=== PATIENT | female | born 1960 | race Caucasian/White ===

== ENCOUNTER 2020-03-06 09:56 | Outpatient (CLI) | payer BC, SELFPAY ==
--- NOTE | ~2020-03-06 | US_ITS ---
EXAMINATION: US pelvic complete w TV DATE: 03/06/2020 10:39 INDICATION: Postmenopausal bleeding. TECHNIQUE: Multiple transabdominal and transvaginal sonographic images of the pelvis were obtained. COMPARISON: Ultrasound 03/21/2017 FINDINGS: TRANSABDOMINAL ULTRASOUND: The uterus measures 7.4 x 4.0 x 2.8 cm. There is no free fluid in the pelvis. TRANSVAGINAL ULTRASOUND: The endometrial complex measures 5 mm in thickness. There is a 4 mm intramural fibroid. The ovaries a re not visualized. IMPRESSION: 1. Normal pelvis. Reviewed, dictated and finalized at location A. IMPRESSION: 1. Normal pelvis.
== END 2020-03-06 09:57 | disposition home or self-care (01) ==
PROVIDERS: PCP Family Medicine; Visit Provider Physician Assistant
DX: N95.0 Postmenopausal bleeding (principal)
CPT/HCPCS: 76830; 76856

== ENCOUNTER → 2020-08-22 12:33 | Outpatient (CLI) | payer BC, SELFPAY ==
--- NOTE | ~2020-08-22 | MM_ITS ---
EXAMINATION: MM screening [facility] BI w sudheer HISTORY: Screening mammogram TECHNIQUE: Craniocaudal and mediolateral oblique 3-D tomosynthesis images were obtained and synthetic 2-D images were generated. CAD analysis was submitted and interpreted. COMPARISON: 08/10/2019, 08/08/2018, 08/06/2017 bilateral digital screening mammogram examinations 08/17/2018 diagnostic right digital mammogram and limited right breast ultrasound examination BREAST PARENCHYMAL COMPOSITION: There are scattered areas of fibroglandular density. FINDINGS: There is stable fibroglandular asymmetry. There is no evidence of suspicious mass, calcific ation, or architectural distortion to suggest malignancy in either breast. There has been no suspicio us interval change. IMPRESSION: 1. No mammographic evidence of malignancy. 2. Recommend routine screening mammography in one year. BI-RADS Category 2: Benign finding(s). Reviewed, dictated and finalized at location A. L FITTER
== END ==
PROVIDERS: PCP Family Medicine; Visit Provider Physician Assistant
DX: Z12.31 Encounter for screening mammogram for malignant neoplasm of breast (principal)
CPT/HCPCS: 77063; 77067

== ENCOUNTER → 2021-08-24 12:09 | Outpatient (CLI) | payer BC, SELFPAY ==
--- NOTE | ~2021-08-24 | MM_ITS ---
EXAMINATION: MM screening [facility] BI w sudheer HISTORY: Screening TECHNIQUE: Craniocaudal and mediolateral oblique 3-D tomosynthesis images were obtained and synthetic 2-D images were generated. CAD analysis was submitted and interpreted. COMPARISON: Comparison to multiple prior studies sequentially, with oldest reviewed study dated 06/21. BREAST PARENCHYMAL COMPOSITION: Breast composed of scattered areas of fibroglandular density. FINDINGS: There is no evidence of suspicious mass, calcification, or architectural distortion to sugg est malignancy in either breast. There has been no suspicious interval change. IMPRESSION: 1. No mammographic evidence of malignancy. 2. Recommend routine screening mammography in one year. BI-RADS Category 1: Negative Reviewed, dictated and finalized at location A. UTER SPECIALIST
== END ==
PROVIDERS: PCP Family Medicine; Visit Provider Family Medicine
DX: Z12.31 Encounter for screening mammogram for malignant neoplasm of breast (principal)
CPT/HCPCS: 77063; 77067

== ENCOUNTER → 2021-10-23 14:38 | Outpatient (CLI) | payer BC, SELFPAY ==
--- NOTE | ~2021-10-23 | XR_ITS ---
XR chest 2V DATE: 10/23/2021 14:46 INDICATION: Cough TECHNIQUE: PA and lateral views COMPARISON: None FINDINGS: Normal heart size. No hilar or mediastinal enlargement. Moderate bilateral pulmonary hyper inflation. No hilar or mediastinal enlargement. No pulmonary infiltrate or consolidation, pulmonary vascular congestion or pleural effusion or pneumothorax. 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 There is scoliosis and degenerative change of the thoracic and lumbar spine. IMPRESSION: No active cardiopulmonary disease Scoliosis and degenerative spurring of thoracic and lumbar spine Reviewed, dictated and finalized at location B. ARCH/PROGRAM DIRECTOR
== END ==
PROVIDERS: PCP Family Medicine; Visit Provider Physician Assistant
DX: R05.9 Cough, unspecified (principal); M47.812 Spondylosis without myelopathy or radiculopathy, cervical region; M41.9 Scoliosis, unspecified
CPT/HCPCS: 71046

== ENCOUNTER → 2022-09-02 15:04 | Outpatient (CLI) | payer BC, SELFPAY ==
--- NOTE | ~2022-09-02 | MM_ITS ---
EXAMINATION: MM screening [facility] BI w sudheer HISTORY: Screening TECHNIQUE: Craniocaudal and mediolateral oblique 3-D tomosynthesis images were obtained and synthetic 2-D images were generated. CAD analysis was submitted and interpreted. COMPARISON: Comparison to multiple prior studies sequentially, with oldest reviewed study dated 08/06/2017. BREAST PARENCHYMAL COMPOSITION: There are scattered areas of fibroglandular density. FINDINGS: There is no evidence of suspicious mass, calcification, or architectural distortion to sugg est malignancy in either breast. There has been no suspicious interval change. IMPRESSION: 1. No mammographic evidence of malignancy. 2. Recommend routine screening mammography in one year. BI-RADS Category 1: Negative Reviewed, dictated and finalized at location B. CAL COMMUNICATION SPECIALIST
== END ==
PROVIDERS: PCP Internal Medicine; Visit Provider Obstetrics & Gynecology
DX: Z12.31 Encounter for screening mammogram for malignant neoplasm of breast (principal)
CPT/HCPCS: 77063; 77067

== ENCOUNTER → 2023-08-17 07:38 | Outpatient (CLI) | payer BC, SELFPAY ==
--- NOTE | ~2023-08-17 | MMUS_ITS ---
EXAMINATION: MM diagnostic [facility] BI w sudheer, US breast BI complete HISTORY: Patient reported feeling the long skinny palpable area at 9:00 near the nipple on July 20 , since resolved TECHNIQUE: Full field and spot ML, MLO and CC 3-D tomosynthesis images of both breasts were performed and synthetic 2-D images were generated. CAD analysis was submitted and interpreted. High resolution complete bilateral breast ultrasound examination including all 4 quadrants and subareolar areas was performed. COMPARISON: 09/02/2022, 08/24/2021, 08/2020, 08/10/2019 bilateral screening mammogram examinations BREAST PARENCHYMAL COMPOSITION: There are scattered areas of fibroglandular density. FINDINGS: MAMMOGRAPHIC FINDINGS: No interval suspicious mass or architectural distortion, malignant calcification, skin thickening or retraction or significant new or developing density of either breast is detected. ULTRASOUND: . Complete ultrasound examination of both breasts was performed including all 4 quadrants and subareo lar area. Subsequently, the right 9:00 area near the areola was rescanned. Right breast: There is an antiparallel irregular hypoechoic area at 9:00 near the areola, with some posterior shado wing. Ultrasound-guided biopsy of this area is recommended. Left breast: At left breast 4:00 1 cm from the nipple there is a parallel circumscribed hypoechoic 3.6 x 1.8 x 5.2 mm area without internal vascularity or posterior shadowing, benign in appearance. IMPRESSION: 1. Suspicious antiparallel irregular hypoechoic shadowing approximately 6 mm lesion at 9:00 near the areola, corresponding to the patient's area of clinical complaint 2. Ultrasound-guided biopsy of right 9:00 lesion near the areola is recommended BI-RADS category 4, suspicious findings. . Dr. Guillen telephoned the report and ultrasound-guided biopsy recommendation of right breast 9:00 les ion near the areola on 08/17/[address] Isai Allne. Reviewed, dictated and finalized at location A. MATIC WASHER MECHANIC IMPRESSION: 1. Suspicious antiparallel irregular hypoechoic shadowing approximately 6 mm le alejandro at 9:00 near the areola, corresponding to the patient's area of clinical c omplaint 2. Ultrasound-guided biopsy of right 9:00 lesion near the areola is recommended BI-RADS category 4, suspicious findings. . Dr. Guillen telephoned the report and ultrasound-guided biopsy recommendation of right breast 9:00 lesion near the areola on 08/17/2023 [place] [address] Guevara.
== END ==
PROVIDERS: PCP Internal Medicine; Visit Provider Obstetrics & Gynecology
DX: R92.8 Other abnormal and inconclusive findings on diagnostic imaging of breast (principal)
CPT/HCPCS: 76641; 77062; 77066; G0279

== ENCOUNTER 2023-09-01 08:51 | Outpatient (CLI) | payer BC, SELFPAY ==
--- NOTE | ~2023-09-01 | US_ITS ---
US breast RT limited 09/01/2023 09:50 Indication: Focal area of abnormal decreased echogenicity noted in the right breast on prior ultrasou nd. Biopsy requested. Procedure: High-resolution Limited ultrasound of the right breast Comparison: 08/17/2023 Findings: The hypoechoic shadowing area in the 9:00 position near the nipple represents area of shado wing from the overlying nipple. No discrete mass or cyst is identified. Short-term follow-up ultrasou nd in 6 months recommended. Impression: 1: Probable benign shadowing of the right breast near the nipple. No discrete mass. BI-RADS CATEGORY 3-PROBABLY BENIGN FINDING RECOMMENDATION: 6 month follow-up Limited right breast ultrasound recommended. Reviewed, dictated and finalized at location A. PHARMACY TECHNICIAN Impression: 1: Probable benign shadowing of the right breast near the nipple. No discrete m ass. BI-RADS CATEGORY 3-PROBABLY BENIGN FINDING RECOMMENDATION: 6 month follow-up Limited right breast ultrasound recommended.
== END 2023-09-01 08:52 | disposition home or self-care (01) ==
PROVIDERS: PCP Internal Medicine; Visit Provider Surgery
DX: R92.8 Other abnormal and inconclusive findings on diagnostic imaging of breast (principal)
CPT/HCPCS: 76642

== ENCOUNTER 2024-03-02 08:41 | Outpatient (CLI) | payer BC, SELFPAY ==
--- NOTE | ~2024-03-02 | MMUS_ITS ---
EXAMINATION: MM diagnostic r[facility] RT w sudheer, US breast RT limited HISTORY: Follow-up right breast asymmetry TECHNIQUE: Additional 3-D tomosynthesis images of the right breast were performed and synthetic 2-D i mages were generated. CAD analysis was submitted and interpreted. High resolution Limited right breas t ultrasound was performed. COMPARISON: Comparison to multiple prior studies sequentially, with oldest reviewed study dated 07/21. BREAST PARENCHYMAL COMPOSITION: Not dense: There are scattered areas of fibroglandular density. FINDINGS: MAMMOGRAPHIC FINDINGS: The right breast is stable. No suspicious masses, calcifications or architectural distortion in the r ight breast to suggest malignancy. ULTRASOUND: Limited right breast ultrasound: There is an irregular hyperechoic area at 9:00 near the areola, like ly normal fibroglandular tissue. This appears unchanged from 09/01/2023. No discrete mass identified. IMPRESSION: 1. No evidence for malignancy in the right breast. Stable right mammogram and ultrasound. 2. Routine yearly screening mammogram and regular clinical breast examination are recommended. BI-RADS Category 2: Benign finding(s). Reviewed, dictated and finalized at location B. IMPRESSION: 1. No evidence for malignancy in the right breast. Stable right mammogram and u ltrasound. 2. Routine yearly screening mammogram and regular clinical breast examination a re recommended. BI-RADS Category 2: Benign finding(s).
== END 2024-03-02 08:42 | disposition home or self-care (01) ==
PROVIDERS: PCP Internal Medicine; Visit Provider Surgery
DX: R92.8 Other abnormal and inconclusive findings on diagnostic imaging of breast (principal)
CPT/HCPCS: 76642; 77061; 77065; G0279

== ENCOUNTER 2024-09-13 08:35 | Outpatient (CLI) | payer BC, SELFPAY ==
--- NOTE | ~2024-09-13 | MM_ITS ---
EXAMINATION: MM screening [facility] BI w sudheer HISTORY: Screening TECHNIQUE: Craniocaudal and mediolateral oblique 3-D tomosynthesis images were obtained and synthetic 2-D images were generated. CAD analysis was submitted and interpreted. COMPARISON: 08/17/2023 and dating back to 08/10/2019 BREAST PARENCHYMAL COMPOSITION: There are scattered areas of fibroglandular density. FINDINGS: Punctate calcifications within the retroareolar position of the left breast, stable and vale ign in appearance. Stable parenchymal pattern without suspicious microcalcifications, architectural distortion, discrete masses or significant asymmetry. IMPRESSION: 1. No mammographic evidence of malignancy. 2. Recommend routine screening mammography in one year. BI-RADS Category 2: Benign finding(s). Reviewed, dictated and finalized at location A. NOLOGY ANALYST
--- OUTSIDE RECORDS SUMMARY | 2024-09-20 18:44 | XMS_ITS | Encounter Summary ---
Author Organization [facility] Address [address] [place] [address] Care Team Providers Care Paver Installer Name Role Phone Estefany Lei MD Primary Care Provider Reason for Visit * Auth/Cert (Routine) Specialty Diagnoses / Procedures Referred By Contac t Referred To Contact Diagnoses Encounter for screening colonoscopy Encounter for screening colonoscopy [Z12.11] Procedures LA COLONOSCOPY,DIAGNOSTIC COLONOSCOPY Referral ID Status Reason Start Date Expiration Date Visits Re quested Visits Authorized [id number] 1 1 Encounter Details Date Type Department Care Team (Latest Contact Info) Description 08/27/2024 7:19 AM HOSPITALITY TEAM MEMBER - 08/27/2024 10:00 AM HOSPITALITY TEAM MEMBER Hospital Encounter [facility] [address] [place] [address] Kilo Johnson MD [facility] [address] [phone] Encounter for screening colonoscopy Discharge Disposition: Discharge to home or self care Social History Tobacco Use Types Packs/Day Years Used Date Smoking Tobacco: Former Cigarettes Smokeless Tobacco: Never AUDIT-C Answer Date Recorded Q1: How often do you have a drink containing alc ohol? Monthly or less 08/27/2024 Q2: How many drinks containi ng alcohol do you have on a typical day when you are drinking? 1 or 2 08/27/2024 Q3: How often do you have si x or more drinks on one occasion? Never 08/27/2024 PHQ-2 Answer Date Recorded PHQ-2 Total Score (If total score is 3 or more points, staff should administer the PHQ-9) 0 04/17/2024 Personal Safety Answer Date Recorded Have you ever been in or are you currently in a harmful physical or emotional relationship or is someone making you feel afraid or unsafe? Denies 08/27/2024 Comments Unknown Sex and Gender Information Value Date Recorded Sex Assigned at Not on file Legal Sex Female 12:44 AM HOSPITALITY TEAM MEMBER Gender Identity Not on file Sexual Orientation Not on file documented as of this encounter Last Filed Vital Signs Vital Sign Reading Time Taken Comments Blood Pressure 125/86 08/27/2024 9:18 AM HOSPITALITY TEAM MEMBER Pulse 68 08/27/2024 9:18 AM HOSPITALITY TEAM MEMBER Temperature 36.4 ??C (97.6 ??F) 08/27/2024 8:55 AM CS T Respiratory Rate 14 08/27/2024 9:18 AM HOSPITALITY TEAM MEMBER Oxygen Saturation 99% 08/27/2024 9:18 AM HOSPITALITY TEAM MEMBER Inhaled Oxygen Concentration - - Weight 52.2 kg (115 lb) 08/27/2024 7:29 AM HOSPITALITY TEAM MEMBER Height - - Body Mass Index 21.03 04/17/2024 8:24 AM CDT documented in this encounter Medications at Time of Discharge alendronate (FOSAMAX) 70 mg/75 mL solution Take by mouth every 7 days Take in the morning with a full glass of water, on an empty stomach, and do not take anything else by mouth or lie down for the next 30 min. efinaconazole 10 % solution with applicator Apply 1 application topically daily 8 mL 3 04/07/2022 magnesium oxide 400 mg magnesium capsule Take 800 mg by mouth daily naproxen (ALEVE) 220 mg tablet Take by mouth 2 (two) times a day with meals spironolactone (ALDACTONE) 100 mg tablet Take 1 tablet (100 mg total) by mouth daily documented as of this encounter Discharge Disposition Disposition Code Departure Means Destination Comment s Discharge to home or self care Private Vehicle Discharge instructions given and verbalized understanding. documented in this encounter H&P Notes * Kilo Johnson MD - 08/27/2024 7:36 AM CST Gastroenterology History and Physical SUBJECTIVE: Patient is a 64 y.o. female for Colonoscopy INDICATIONS: screening for colon cancer Past Medical History: Diagnosis Date Heart disease Hemorrhoids Urinary tract infection Medications Prior to Admission Medication Sig Dispense Refill Last Dose/Taking alendronate (FOSAMAX) 70 mg/75 mL solution Take by mouth every 7 days Take in the morning with a full glass of water, on an empty stomach, and do not take anything else by mouth or lie down for the next 30 min. Past Week spironolactone (ALDACTONE) 100 mg tablet Take 1 tablet (100 mg total) by mouth daily 08/26/2024 efinaconazole 10 % solution with applicator Apply 1 application topically daily 8 mL 3 Unknown magnesium oxide 400 mg magnesium capsule Take 800 mg by mouth daily Unknown naproxen (ALEVE) 220 mg tablet Take by mouth 2 (two) times a day with meals Unknown Allergies Allergen Reactions Penicillins Terbinafine Other (See comments) Itching and abdominal pain Review of Systems: Respiratory: negative Cardiovascular: negative Gastrointestinal: negative OBJECTIVE: Vitals: 08/27/24 0729 BP: 120/77 Pulse: 78 Resp: 18 Temp: 36.4 ??C (97.6 ??F) SpO2: 98% General Appearance: Well-developed, no distress Lungs: Clear to auscultation bilaterally, respirations unlabored Cardiovascular: Regular rate and rhythm, S1 and S2 normal Abdomen: Soft, non-tender, bowel sounds active all four quadrants, no masses, no organomegaly, non-distended Neurologic: Alert & oriented x 3 PLAN: Colonoscopy The risks (risks of bleeding, infection, perforation requiring surgery, missed polyps/cancer, dental injury, aspiration pneumonia, anesthesia complications such as drug reaction and cardiopulmonary complications including rare chance of ), benefits, and alternatives of the planned procedure were explained to the patient who understands and consents to having procedure done. ITALITY TEAM MEMBER documented in this encounter Procedure Notes * Kilo Johnson MD - 08/27/2024 8:30 AM CSTAssociated Order(s): COLONOSCOPY [facility] GI ENDOSCOPY Patient Name: Shila Martinez Procedure Date: 08/27/2024 8:30 AM Date of : 1960 Admit Type: Outpatient Age: 64 Gender: Female Attending MD: Kilo Johnson M.D. Room: [facility] ENDOSCOPY ROOM 06 Note Status: Finalized Procedure: Colonoscopy Indications: Screening for colorectal malignant neoplasm Referring MD: Providers: Kilo Johnson M.D. Medicines: Monitored Anesthesia Care Complications: No immediate complications. Estimated Blood Loss: Estimated blood loss: none. Procedure: Pre-Anesthesia Assessment: - Prior to the procedure, a History and Physical was performed, and patient medications and allergies were reviewed. The risks and benefits of the procedure and the sedation options and risks were discussed with the patient. All questions were answered and informed consent was obtained. Patient identification and proposed procedure were verified. After reviewing the risks and benefits, the patient was deemed in satisfactory condition to undergo the procedure. The anesthesia plan was to use monitored anesthesia care (MAC). Immediately prior to administration of medications, the patient was re-assessed for adequacy to receive sedatives. The heart rate, respiratory rate, oxygen saturations, blood pressure, adequacy of pulmonary ventilation, and response to care were monitored throughout the procedure. The physical status of the patient was re-assessed after the procedure. The benefits, risks and alternatives of the procedure and sedation were discussed and informed consent was obtained. All questions were answered. Please refer to the signed informed consent document in the medical record. The scope was passed under direct vision. The Colonoscope was introduced through the anus and advanced to the cecum, identified by appendiceal orifice and ileocecal valve. The colonoscopy was performed without difficulty. The patient tolerated the procedure well. The quality of the bowel preparation was adequate. Scope withdrawal time was 13 minutes. Prep was administered in a split dose. Findings: The perianal and digital rectal examinations were normal. A polyp was found in the ascending colon. The polyp was sessile. The polyp was removed with a cold biopsy forceps. Resection and retrieval were complete. A few small-mouthed diverticula were found in the sigmoid colon. Non-bleeding internal hemorrhoids were found during retroflexion. The hemorrhoids were small. The exam was otherwise without abnormality. Impression: - One polyp in the ascending colon, removed with a cold biopsy forceps. Resected and retrieved. - Diverticulosis in the sigmoid colon. - Non-bleeding internal hemorrhoids. - The examination was otherwise normal. Recommendation: - Patient has a contact number available for emergencies. The signs and symptoms of potential delayed complications were discussed with the patient. Return to normal activities tomorrow. Written discharge instructions were provided to the patient. - High fiber diet. - Continue present medications. - Await pathology results. - Repeat colonoscopy in 5 years for surveillance. Kilo Johnson M.D. Kilo Johnson M.D. 08/27/2024 8:53:45 AM . Number of Addenda: 0 Note Initiated On: 08/27/2024 8:30 AM Recognized by the [employer] for promoting quality in endoscopy ITALITY TEAM MEMBER documented in this encounter Miscellaneous Notes * Pre-Procedure Instructions - Tamela Kirk RN - 08/20/2024 9:25 AM HOSPITALITY TEAM MEMBER No alcohol or smoking 12 hours before surgery [place] teeth but do not swallow Shower or bathe, do no apply powders or lotions Leave all jewelry and valuables at home Expect to remove wigs, dentures, partials, contact lenses, body piercings and prosthesis Bring your glasses and hearing aide/s Make plans for responcible adult ot drive you home or accompany you home Bring living will and/or power of endless track vehicle supervisor paperwork if you have one Follow GI physician instructions regarding blood thinner and vitamins Bring inhalers Take prep according to GI physician Please take the following medications with a sip of water the AM of procedure: hold Spirolactone ITALITY TEAM MEMBER documented in this encounter Plan of Treatment Not on file documented as of this encounter Procedures Procedure Name Priority Date/Time Associated Diagnosis Comments SURGICAL PATHOLOGY Routine 08/27/2024 8: 40 AM HOSPITALITY TEAM MEMBER Encounter for screening colonoscopy COLONOSCOPY 08/27/2024 8:30 AM HOSPITALITY TEAM MEMBER COLON BIOPSY 08/27/2024 8:30 AM HOSPITALITY TEAM MEMBER Encounter for screening colonoscopy POC BLOOD GAS AND CHEMISTRIES, VENOUS Routine 08/27/2024 8:02 AM HOSPITALITY TEAM MEMBER documented in this encounter Results * Surgical pathology (08/27/2024 8:40 AM HOSPITALITY TEAM MEMBER) Tissue (Colon, Biopsy) 08/27/2024 8:40 AM HOSPITALITY TEAM MEMBER Narrative PATHOLOGY [facility] - 08/29/2024 5:18 PM HOSPITALITY TEAM MEMBER [facility] Department of Pathology [facility] [place], [place] [address] ?? Note to Patients: ??This report may contain a detailed description of human tissue sent by a health care provider to the laboratory for pathologic evaluation. ??The content of this report is essential for diagnosis and may provide important critical findings. ??This information may be unfamiliar to patients to review without a medical professional present. ?? It is advised that the patient review this report in the presence of a health care provider who can answer questions and explain the details. Final Report Patient Name: SHILA MARTINEZ : ??1960 (Age: 64) Gender: ??F Address: ??[address] [place] [address] [address] [facility] #: [id number] Service: Gastro [facility]: [facility] ? Taken: 08/27/2024 Received: 08/27/2024 Accessioned: 08/27/2024 Reported: 08/29/2024 Physician(s): Noah Alvarez M.D. Diagnosis: Colon, ascending, polyp, polypectomy: ? -Polypoid colonic mucosa with lymphoid aggregate and reactive epithelial changes. Diagnosis Comment: Multiple additional deeper tissue sections were examined. Alex Kidd MD, PHD Report Electronically Reviewed and Signed Out By ??Alex Kidd MD, PHD 08/29/2024 17:18:31 Specimen(s) Received: A: Ascending colon polyp cold biopsy Microscopic Description: Unless gross-only is specified, the final diagnosis for each specimen is based on a microscopic examination of each tissue sample. Clinical History: The patient is a 64-year-old woman presenting for colon cancer screening. ??Operative procedure: ??Colonoscopy with biopsy. Gross Description Received in formalin, labeled with the patient? ? s identifiers and ascending colon polyp cold biopsy and consists of two short tissue fragments measuring 0.3 cm each. ??Entirely submitted. ?? Labeled A1. Jar 0. ?? jjb/08/27/2024 10:47 PELON Barber, RANJIT [facility] Microscopic slide review and interpretation for this case was performed at [facility], Department of Surgical Pathology, [address] [facility] [place], [place] [id number], ??[facility], [place] ??[address] ?? CLIA # [id number] us Kilo Johnson MD LAB PATHOLOGY ORDERABLES Final R esult PATHOLOGY [facility] * Colonoscopy (08/27/2024 8:30 AM HOSPITALITY TEAM MEMBER) Anatomical Region Laterality Modality Other Narrative Procedure Note Kilo Johnson MD - 08/27/2024 8:30 AM CST [facility] GI ENDOSCOPY Patient Name: Shila Martinez Procedure Date: 08/27/2024 8:30 AM Date of : 1960 Admit Type: Outpatient Age: 64 Gender: Female Attending MD: Kilo Johnosn M.D. Room: [facility] ENDOSCOPY ROOM 06 Note Status: Finalized Procedure: Colonoscopy Indications: Screening for colorectal malignant neoplasm Referring MD: Providers: Kilo Johnson M.D. Medicines: Monitored Anesthesia Care Complications: No immediate complications. Estimated Blood Loss: Estimated blood loss: none. Procedure: Pre-Anesthesia Assessment: - Prior to the procedure, a History and Physicalwas performed, and patient medications and allergieswere reviewed. The risks and benefits of the procedureand the sedation options and risks were discussed withthe patient. All questions were answered and informed consent was obtained. Patient identification and proposed procedure were verified. After reviewingthe risks and benefits, the patient was deemed in satisfactory condition to undergo the procedure.The anesthesia plan was to use monitored anesthesiacare (MAC). Immediately prior to administration of medications, the patient was re-assessed foradequacy to receive sedatives. The heart rate, respiratory rate, oxygen saturations, blood pressure, adequacyof pulmonary ventilation, and response to care were monitored throughout the procedure. The physical status of the patient was re-assessed after the procedure. The benefits, risks and alternatives of theprocedure and sedation were discussed and informed consentwas obtained. All questions were answered. Please referto the signed informed consent document in the medical record. The scope was passed under direct vision.The Colonoscope was introduced through the anus and advanced to the cecum, identified by appendiceal orifice and ileocecal valve. The colonoscopy was performed without difficulty. The patient tolerated the procedure well. The quality of the bowel preparation was adequate. Scope withdrawal time was13 minutes. Prep was administered in a split dose. Findings: The perianal and digital rectal examinations were normal. A polyp was found in the ascending colon. The polyp was sessile. The polyp was removed with a cold biopsy forceps. Resection and retrieval were complete. A few small-mouthed diverticula were found in the sigmoid colon. Non-bleeding internal hemorrhoids were found during retroflexion. The hemorrhoids were small. The exam was otherwise without abnormality. Impression: - One polyp in the ascending colon, removed with a cold biopsy forceps. Resected and retrieved. - Diverticulosis in the sigmoid colon. - Non-bleeding internal hemorrhoids. - The examination was otherwise normal. Recommendation: - Patient has a contact number available for emergencies. The signs and symptoms of potential delayed complications were discussed with thepatient. Return to normal activities tomorrow. Written discharge instructions were provided to thepatient. - High fiber diet. - Continue present medications. - Await pathology results. - Repeat colonoscopy in 5 years for surveillance. Kilo Johnson M.D. Kilo Johnson M.D. 08/27/2024 8:53:45 AM . Number of Addenda: 0 Note Initiated On: 08/27/2024 8:30 AM Recognized by the [employer] for promoting quality in endoscopy us Kilo Johnson MD ENDOSCOPY PROCEDURES Final Resul t * (ABNORMAL) POC Blood Gas and Chemistries, Venous - (08/27/2024 8:02 AM HOSPITALITY TEAM MEMBER) pH,nate POC 7.32 7.32 - 7.43 pCO2, nate POC 48 40 - 50 mmHg [facility] pO2,nate POC 25 mmHg [facility] Comment: Interpretive Data No reference range established. Current interpretive data was last revised 2020. HCO3, nate (Calc) POC 24 20 - 30 mmol/L [facility] Base excess, nate POC -2 mmol/L [facility] Comment: Interpretive Data No reference range established. Current interpretive data was last revised 2020. Hemoglobin, nate POC 16.7(H) 11.9 - 15.5 g/dL [facility] Hematocrit, nate POC 49.0(H) 35.6 - 45.5 % [facility] Sodium, nate POC 140 135 - 145 mmol/L [facility] Potassium, nate POC 3.7 3.3 - 4.9 mmol/L [facility] Comment: Interpretive Data This method is not able to assess for hemolysis, which may falsely increase potassium concentrations. If further testing is needed to evaluate this result, consider in-laboratory plasma potassium. Current Interpretive Data was last revised on 2022. Glucose, nate POC 81 70 - 199 mg/dL [facility] Ionized Calcium, nate POC 5.10 4.50 - 5.10 mg/dL [facility] Blood 08/27/2024 8:02 AM HOSPITALITY TEAM MEMBER 08/27/2024 8:02 AM HOSPITALITY TEAM MEMBER us Kilo Johnson MD LAB POCT ORDERABLES - DEVICE Fin al Result [facility] [address] [facility] Department [place] [address] documented in this encounter Visit Diagnoses Diagnosis Encounter for screening colonoscopy- Primary documented in this encounter Admitting Diagnoses Diagnosis Encounter for screening colonoscopy documented in this encounter Administered Medications documented in this encounter Historical Medications * This list may reflect changes made after this encounter. alendronate (FOSAMAX) 70 mg/75 mL solution Take by mouth every 7 days Take in the morning with a full glass of water, on an empty stomach, and do not take anything else by mouth or lie down for the next 30 min. added in this encounter Active and Recently Administered Medications Times are shown in HOSPITALITY TEAM MEMBER. PRN Medication Order 08/25/2024 08/26/2024 08/27/2024 meperidine (DEMEROL) preservative free injection 12.5 mg 12.5 mg, intravenous, Administer over 5 Minutes, Every 10 min PRN, shivering, Starting on Tue08/27/24 at 0858, For 2 doses, Phase I, Max cumulative dose 25 mg., Indications: Shivering naloxone (NARCAN) 0.4 mg/mL injection 0.04-0.4 mg 0.04-0.4 mg, intravenous, Once as needed, other, excessive sedation/respiratory depression, Starting on Tue08/27/24 at 0858, For 1 dose, Phase I, Dilute 0.4 mg with 9 mL NS (final concentration 0.04 mg/mL). For respiratory depression (respiratory rate less than 6), administer 0.4 mg IVP over 30 seconds. For excessive sedation administer 0.04 mg (1 mL) every 1 minute until desired level of alertness. For IV, administer over 30 seconds., Indications: Opioid Toxicity documented in this encounter Orders Medications Ordered That Nathan ht Not Have Been Administered Count Last Ordered Date First Ordered Date meperidine (DEMEROL) preserv ative free injection 12.5 mg 1 08/27/2024 naloxone (NARCAN) 0.4 mg/mL injection 0.04-0.4 mg 1 08/27/2024 sodium chloride 0.9% 0.9% IV PB - ADS Override Pull 1 08/27/2024 Diet Count Last Ordered Date First Orde red Date ADULT DISCHARGE DIET 1 08/27/2024 Nursing Count Last Ordered Date First Orde red Date DISCHARGE ACTIVITY 1 08/27/2024 DISCHARGE CALL PROVIDER 5 08/27/2024 Discharge Count Last Ordered Date First Orde red Date DISCHARGE PATIENT 1 08/27/2024 documented in this encounter Care Teams Paver Installer Relationship Specialty Start Date End Date Estefany eLi MD [address] [place] [phone] PCP - General Internal Medicine 04/07/22 documented as of this encounter
--- OUTSIDE RECORDS SUMMARY | 2024-09-20 18:44 | XMS_ITS | Encounter Summary ---
Author Organization [facility] Address [address] [place] [address] Care Team Providers Care Preforms Laminator Name Role Phone Estefany Lei MD Primary Care Provider Reason for Referral * Consultation (Elective) - Closed Specialty Diagnoses / Procedures Referred By Contac t Referred To Contact Gastroenterology Diagnoses Colon cancer screening Estefany Lei MD [address] [place] [phone] Phone: tel: fax: Shaun Johnson MD [address] [place] [address] Phone: tel: fax: Referral ID Status Reason Start Date Expiration Date V isits Requested Visits Authorized [id number] Closed Specialty Services Required 04/17/2024 05/17/2025 1 1 Question Answer Please select the performing region: [facility] [[id number]] Please select the performing department: [facility] [[id number]] To provider: SHAUN JOHNSON [[id number]] # of visits: 1 Reason for Visit * Reason Comments Preventative Care Encounter Details Date Type Department Care Team (Late st Contact Info) Description 04/17/2024 8:30 AM CDT Office Visit [facility] Primary Care [facility] [phone] Estefany Lei MD [address] [place] [phone] Routine general medical examination at a health care facility (Primary Dx); Colon cancer screening Social History Tobacco Use Types Packs/Day Years Used Date Smoking Tobacco: Former Cigarettes Smokeless Tobacco: Never AUDIT-C Answer Date Recorded Q1: How often do you have a drink containing alc ohol? Monthly or less 04/07/2022 Q2: How many drinks containi ng alcohol do you have on a typical day when you are drinking? 1 or 2 04/07/2022 Q3: How often do you have si x or more drinks on one occasion? 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 Gender Identity Not on file Sexual Orientation Not on file documented as of this encounter Last Filed Vital Signs Vital Sign Reading Time Taken Comments Blood Pressure 120/68 04/17/2024 8:46 AM CDT Pulse 65 04/17/2024 8:24 AM CDT Temperature 36.4 ??C (97.5 ??F) 04/17/2024 8:24 AM CD T Respiratory Rate - - Oxygen Saturation 97% 04/17/2024 8:24 AM CDT Inhaled Oxygen Concentration - - Weight 55.3 kg (122 lb) 04/17/2024 8:24 AM CDT Height 157.5 cm (5' 2 ) 04/17/2024 8:24 AM CDT Body Mass Index 22.31 04/17/2024 8:24 AM CDT documented in this encounter Patient Instructions * Patient Instructions* Estefany Lie MD - 04/17/2024 8:30 AM CDT Diagnoses and all orders for this visit: Routine general medical examination at a health care facility (Primary) Comments: utd on mammo. 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 and labs reviewed and vax are up to date Colon cancer screening - Ambulatory referral to Gastroenterology; Future documented in this encounter Progress Notes * Estefany Lei MD - 04/17/2024 8:30 AM CDT Images from the original note were not included. Patient ID: Shila Martinez is a 64 y.o. female. Chief Complaint. Chief Complaint Patient presents with Preventative Care HPI. Patient is a 64 y.o. female HPI 64 yo here for yearly px and f/u. Toe nail fungus started in 2005 and has lost the nail. Has used jublia. - laser treatment doing well; growing out. Going every 2.5 months. - Dr. Lange in [place]. 800$ per year. - right nail is healed; and getting laser treatments. Magnesium supplement taking magnesium. Muscle cramping. Taking aleve 1x per week; when working in the yard, has some arthritis. Taking spironolactone for adult acne. Seeing Dr. Castañeda. Bicuspid aortic valve; 01/21/23 f/u in 2 yrs. - was seeing cardiology, cut back on metoprolol and was feeling better. Colon Aug 2014 f/u 10 yrs; [facility]: 03/02/24; [facility] PAP: [facility]; pelvic last year, PAP 2019, Dr. Maldonado. Seeing them Apr 2024 Dexa: wellness check [place] 10 yrs. Exercise: walking 5 miles tue/thur and pickle ball 3 days per week with rides, some home weights. Diet: Weight watchers. Vax: utd 2 sons; The 10-year ASCVD risk score (Bridget CASANOVA, et al., 2019) is: 4.1% Values used to calculate the score: Age: 64 years Sex: Female Is Non- : No Diabetic: No Tobacco smoker: No Systolic Blood Pressure: 134 mmHg Is BP treated: No HDL Cholesterol: 86 mg/dL Total Cholesterol: 219 mg/dL Current Medications: Outpatient Encounter Medications as of 04/17/2024 Medication Sig Dispense Refill efinaconazole 10 % solution with applicator Apply 1 application topically daily 8 mL 3 magnesium oxide 400 mg magnesium capsule Take 800 mg by mouth daily naproxen (ALEVE) 220 mg tablet Take by mouth 2 (two) times a day with meals spironolactone (ALDACTONE) 100 mg tablet Take 1 tablet (100 mg total) by mouth daily No facility-administered encounter medications on file as of 04/17/2024. Review of Systems: Review of Systems BP 134/82 (BP Location: Left arm, Patient Position: Sitting) Pulse 65 Temp 36.4 ??C (97.5 ??F) (Temporal) Ht 157.5 cm (5' 2 ) Wt 55.3 kg (122 lb) SpO2 97% BMI 22.31 kg/m?? Physical Exam: Physical Exam Constitutional: Appearance: She is well-developed. HENT: Head: Normocephalic and atraumatic. Eyes: Conjunctiva/sclera: Conjunctivae normal. Pupils: Pupils are equal, round, and reactive to light. Neck: Thyroid: No thyromegaly. Cardiovascular: Rate and Rhythm: Normal rate and regular rhythm. Heart sounds: Normal heart sounds. No murmur heard. No friction rub. No gallop. Pulmonary: Effort: Pulmonary effort is normal. No respiratory distress. Breath sounds: Normal breath sounds. No wheezing or rales. Abdominal: General: Bowel sounds are normal. There is no distension. Palpations: Abdomen is soft. There is no mass. Tenderness: There is no abdominal tenderness. There is no guarding or rebound. Musculoskeletal: General: No tenderness. Cervical back: Normal range of motion and neck supple. Lymphadenopathy: Cervical: No cervical adenopathy. Skin: General: Skin is warm and dry. Neurological: Mental Status: She is alert and oriented to person, place, and time. Cranial Nerves: No cranial nerve deficit. Deep Tendon Reflexes: Reflexes normal. Psychiatric: Behavior: Behavior normal. Thought Content: Thought content normal. Judgment: Judgment normal. Assessment & Plan: Diagnoses and all orders for this visit: Routine general medical examination at a health care facility (Primary) Comments: utd on mammo. 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 and labs reviewed and vax are up to date Colon cancer screening - Ambulatory referral to Gastroenterology; Future BMI Follow-up includes: exercise counseling. Estefany Lei MD documented in this encounter Plan of Treatment Scheduled Referrals Name Type Priority Associated Diagnoses Order Schedule Ambulatory referral to Gastroenterology Outpatient Referral Routine Colon cancer screening 1 Occurrences starting 04/17/2024 until 10/18/2024 documented as of this encounter Visit Diagnoses Diagnosis Routine general medical examination at a health care facility- Primary Colon cancer screening Special screening for malignant neoplasms, colon documented in this encounter Care Teams Preforms Laminator Relationship Specialty Start Date End Date Estefany Lei MD [address] [place] [phone] PCP - General Internal Medicine 04/07/22 documented as of this encounter
--- OUTSIDE RECORDS SUMMARY | 2024-09-20 18:44 | XMS_ITS | Referral Summary ---
Author Organization [facility] Address [address] [place] [phone] Care Team Providers Care Outdoor Adventure Instructor Name Role Phone Estefany Lei MD Primary Care Provider Encounters Date Type Department Care Team Description 08/27/2024 8:30 AM GEAR ROOM KEEPER Anesthesia Event [facility] [address] [place] [address] Irving Gonzalez MD 08/27/2024 8:30 AM GEAR ROOM KEEPER - 08/27/2024 9:00 AM GEAR ROOM KEEPER Surgery [facility] [address] [place] [address] Kilo Johnson MD COLON BIOPSY 08/27/2024 7:19 AM GEAR ROOM KEEPER - 08/27/2024 10:00 AM GEAR ROOM KEEPER Hospital Encounter [facility] [address] [place] [phone] Kilo Johnson MD Encounter for screening colonoscopy Discharge Disposition: Discharge to home or self care from Last 3 Months Allergies Active Allergy Reactions Criticality Noted Date Comments Penicillins Terbinafine Other (See comments) Low 06/21/2021 Itching and abdominal pain Medications spironolactone (ALDACTONE) 100 mg tablet Take 1 tablet (100 mg total) by mouth daily Active naproxen (ALEVE) 220 mg tablet Take by mouth 2 (two) times a day with meals Active efinaconazole 10 % solution with applicator Apply 1 application topically daily 8 mL 3 2 Active magnesium oxide 400 mg magnesium capsule Take 800 mg by mouth daily Active alendronate (FOSAMAX) 70 mg/75 mL solution Take by mouth every 7 days Take in the morning with a full glass of water, on an empty stomach, and do not take anything else by mouth or lie down for the next 30 min. Active Active Problems Problem Noted Date Diagnosed Date Encounter for screening colonoscopy 04/17/2024 Bicuspid aortic valve 04/09/2024 Oral lesion 04/05/2023 Assessment & Plan (04/05/2023 12:52 PM CDT): This appears to be a small mucocele involving the left tonsil. I recommended no intervention. I reassured her that it is benign. If it changes significantly I have asked her to follow-up with me. She is fine with that. Paroxysmal supraventricular tachycardia 03/23/20 Immunizations Name Administration Dates Next Due Influenza, Quadrivalent, Elena l Culture-based MDCK, Preservative Free, Antibiotic Free, Intramuscular 07/11/2023 Influenza, Quadrivalent, Spl it, Preservative Free, Intramuscular 08/03/2022,06/21/2021,06/30/2020,07/10 Pneumococcal Polysaccharide PPV23 05/01/2021 RSV Vaccine, Pref, Recombina nt, Subunit, Adjuvanted, PF, IM (Arexvy) 06/26/2023 ZOSTER Recombinant 06/13/2022,04/11/2022 Social History Tobacco Use Types Packs/Day Years Used Date Smoking Tobacco: Former Cigarettes Smokeless Tobacco: Never Tobacco Cessation:Counseling Given: Not Answered AUDIT-C Answer Date Recorded Q1: How often [...] on file 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 Gender Identity Not on file Sexual Orientation Not on file Last Filed Vital Signs Vital Sign Reading Time Taken Comments Blood Pressure 125/86 08/27/2024 9:18 AM GEAR ROOM KEEPER Pulse 68 08/27/2024 9:18 AM GEAR ROOM KEEPER Temperature 36.4 ??C (97.6 ??F) 08/27/2024 8:55 AM CS T Respiratory Rate 14 08/27/2024 9:18 AM GEAR ROOM KEEPER Oxygen Saturation 99% 08/27/2024 9:18 AM GEAR ROOM KEEPER Inhaled Oxygen Concentration - - Weight 52.2 kg (115 lb) 08/27/2024 7:29 AM GEAR ROOM KEEPER Height 157.5 cm (5' 2 ) 04/17/2024 8:24 AM CDT Body Mass Index 21.03 04/17/2024 8:24 AM CDT Plan of Treatment Not on file Procedures Procedure Name Priority Date/Time Associated Diagnosis Comments SURGICAL PATHOLOGY Routine 08/27/2024 8: 40 AM GEAR ROOM KEEPER Encounter for screening colonoscopy COLONOSCOPY 08/27/2024 8:30 AM GEAR ROOM KEEPER COLON BIOPSY 08/27/2024 8:30 AM GEAR ROOM KEEPER Encounter for screening colonoscopy POC BLOOD GAS AND CHEMISTRIES, VENOUS Routine 08/27/2024 8:02 AM GEAR ROOM KEEPER SCREENING MAMMOGRAM Schedule Routine, Read Routine (OP Routine) 09/02/2022 PAP SMEAR WITH HPV Routine 01/11/2020 from Last 3 Months or Most Recently Relevant to Health Maintenance Results * Surgical pathology (08/27/2024 8:40 AM GEAR ROOM KEEPER) Tissue (Colon, Biopsy) 08/27/2024 8:40 AM GEAR ROOM KEEPER Narrative PATHOLOGY [facility] - 08/29/2024 5:18 PM GEAR ROOM KEEPER [facility] Department of Pathology [address] [place] [address] ?? Note to Patients: ??This report may [...] : ??1960 (Age: 64) Gender: ??F Address: ??[address] [place] [address] [facility] #: [id number] Service: Gastro Location: Patient Type: [facility] OUTPATIENT ? Taken: 08/27/2024 Received: 08/27/2024 Accessioned: [...] submitted. ?? Labeled A1. Jar 0. ?? jjmhb/08/27/2024 10:47 PELON Barber[facility]ANJIT [facility] Microscopic slide review and interpretation for this case was performed at [facility], Department of Surgical Pathology, [address] [facility] [place], [place] [id number], ??[place], [place] ??[address] ?? CLIA # [id number] us Kilo Johnson MD LAB PATHOLOGY ORDERABLES Final R esult PATHOLOGY [facility] * Colonoscopy (08/27/2024 8:30 AM GEAR ROOM KEEPER) Anatomical Region Laterality Modality Other Narrative Procedure Note Kilo Johnson MD - 08/27/2024 8:30 AM CST [facility] GI ENDOSCOPY Patient Name: Shila Martinez Procedure Date: 08/27/2024 8:30 AM Date of : 1960 Admit Type: Outpatient Age: 64 Gender: Female Attending MD: Kilo Johnson M.D. Room: [facility] ENDOSCOPY ROOM 06 Note Status: Finalized Procedure: [...] On: 08/27/2024 8:30 AM Recognized by the [place] for promoting quality in endoscopy Kilo Johnson MD ENDOSCOPY PROCEDURES Final Resul t * (ABNORMAL) POC Blood Gas and Chemistries, Venous - (08/27/2024 8:02 AM GEAR ROOM KEEPER) pH,nate POC 7.32 7.32 - 7.43 pCO2, nate POC 48 40 - 50 mmHg [facility] pO2,nate POC 25 mmHg [facility] Comment: Interpretive Data No reference range established. Current interpretive data was last revised 2020. HCO3, nate (Calc) POC 24 20 - 30 mmol/L [facility] Base excess, nate POC -2 mmol/L [facility] Comment: Interpretive Data No reference range established. Current interpretive data was last revised 2020. Hemoglobin, nate POC 16.7(H) 11.9 - 15.5 g/dL [facility] Hematocrit, nate POC 49.0(H) 35.6 - 45.5 % [facility] Sodium, nate POC 140 135 - 145 mmol/L [facility] Potassium, nate POC 3.7 3.3 - 4.9 mmol/L [facility] Comment: Interpretive Data This method is not able to assess for hemolysis, which may falsely increase potassium concentrations. If further testing is needed to evaluate this result, consider in-laboratory plasma potassium. Current Interpretive Data was last revised on 2022. Glucose, nate POC 81 70 - 199 mg/dL [facility] Ionized Calcium, nate POC 5.10 4.50 - 5.10 mg/dL [facility] Blood 08/27/2024 8:02 AM GEAR ROOM KEEPER 08/27/2024 8:02 AM GEAR ROOM KEEPER Kilo Johnson MD LAB POCT ORDERABLES - DEVICE Fin al Result [facility] [id number] [facility] Department [place] [address] * Screening Mammogram (09/02/2022) Anatomical Region Laterality Modality Breast N/A Mammography 09/02/2022 us Historical Provider IMG MAMMO PROCEDURES Ayaka l Result * HM PAP SMEAR WITH HPV (01/11/2020) 01/11/2020 Historical Provider HEALTH MAINTENANCE Final Result from Last 3 Months or Most Recently Relevant to Health Maintenance [place] Care Teams Outdoor Adventure Instructor Relationship Specialty Start Date End Date Estefany Lei MD [address] [place] [phone] PCP - General Internal Medicine 04/07/22
--- OUTSIDE RECORDS SUMMARY | 2024-09-20 18:44 | XMS_ITS | Encounter Summary ---
Author Organization [facility] Address [address] [facility] [place] [address] Care Team Providers Care Casino Controller Name Role Phone Unavailable Primary Care Provider Unavailabl e Encounter Details Date Type Department Care Team (Latest Contact Info) Description 06/27/2020 Travel Social History Tobacco Use Types Packs/Day Years Used Date Smoking Tobacco: Never Assessed Sex and Gender Information Value Date Recorded Sex Assigned at Not on file Gender Identity Not on file Sexual Orientation Not on file COVID-19 Exposure Response Date Recorded In the last month, have you been in contact with someone who was confirmed or suspected to have Coronavirus / COVID-19? No / Unsure 06/27/2020 10:48 AM CDT documented as of this encounter Plan of Treatment Not on file documented as of this encounter Visit Diagnoses Not on filedocumented in this encounter
--- OUTSIDE RECORDS SUMMARY | 2024-09-20 18:44 | XMS_ITS | Clinical Summary ---
Author Organization [facility] Address [address] [place] [phone] Care Team Providers Care Wooden Furniture Polisher Name Role Phone Estefany Lei MD Primary Care Provider Allergies Active Allergy Reactions Criticality Noted Date [...] fine with that. Paroxysmal supraventricular tachycardia 03/23/20 23 Encounters Date Type Department Care Team Description 08/27/2024 8:30 AM SMALL BATTERY PLATE ASSEMBLER Anesthesia Event [facility] [address] [place] [address] Irving Gonzalez MD 08/27/2024 8:30 AM SMALL BATTERY PLATE ASSEMBLER - 08/27/2024 9:00 AM SMALL BATTERY PLATE ASSEMBLER Surgery [facility] [address] [place] [address] Kilo Johnson MD COLON BIOPSY 08/27/2024 7:19 AM SMALL BATTERY PLATE ASSEMBLER - 08/27/2024 10:00 AM SMALL BATTERY PLATE ASSEMBLER Hospital Encounter [facility] [address] [place] [address] Kilo Johnson MD Encounter for screening colonoscopy Discharge Disposition: Discharge to home or self care from Last 3 Months Immunizations Name Administration Dates Next Due Influenza, Quadrivalent, Elena l Culture-based MDCK, Preservative Free, Antibiotic Free, Intramuscular 07/11/2023 Influenza, Quadrivalent, Spl it, Preservative Free, Intramuscular 08/03/2022,06/21/2021,06/30/2020,07/10 Pneumococcal Polysaccharide PPV23 05/01/2021 RSV Vaccine, Pref, Recombina nt, Subunit, Adjuvanted, PF, IM (Arexvy) 06/26/2023 ZOSTER Recombinant 06/13/2022,04/11/2022 Surgical History Surgery Date Site/Laterality Comments SECTION TUBAL LIGATION VULVA SURGERY COLONOSCOPY Medical History Medical History Date Comments Heart disease Urinary tract infection Hemorrhoids Family History Medical History Relation Name Comments Coronary artery disease Father Diabetes type II Father Hypertension Father Hypertension Mother Obesity Mother Skin cancer Mother Melanoma Sister 1 Relation Name Status Comments Brother 1 Alive Brother 2 Alive Brother 3 Alive Brother 4 Alive Brother 5 Alive Brother 6 Alive Father Mother Sister 1 Alive Sister 2 Alive Sister 3 Alive Sister 4 Alive Social History Tobacco Use Types Packs/Day Years [...] on file 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 Gender Identity Not on file Sexual Orientation Not on file Obstetrics History Last Filed Vital Signs Vital Sign Reading Time Taken Comments Blood Pressure 125/86 08/27/2024 9:18 AM SMALL BATTERY PLATE ASSEMBLER Pulse 68 08/27/2024 9:18 AM SMALL BATTERY PLATE ASSEMBLER Temperature 36.4 ??C (97.6 ??F) 08/27/2024 8:55 AM CS T Respiratory Rate 14 08/27/2024 9:18 AM SMALL BATTERY PLATE ASSEMBLER Oxygen Saturation 99% 08/27/2024 9:18 AM SMALL BATTERY PLATE ASSEMBLER Inhaled Oxygen Concentration - - Weight 52.2 kg (115 lb) 08/27/2024 7:29 AM SMALL BATTERY PLATE ASSEMBLER Height 157.5 cm (5' 2 ) 04/17/2024 8:24 AM CDT Body Mass Index 21.03 04/17/2024 8:24 AM CDT Plan of Treatment Health Maintenance Due Date Last Done Comments Hepatitis C Screening 1960 DTaP/Tdap/Td Vaccine (1 - Tdap) 1972 Hepatitis B Screening 1979 Breast Cancer Screening-Mammogram 09/02/2023 09/02/2022, 08/24/2021 Covid-19 Vaccine ( season) 2024 07/04/2022, 02/06/2022, 07/28/2021, Additional history exists Influenza Vaccine (#1) 2024 , 08/03/2022, 06/21/2021, Additional history exists Cervical Cancer Screening 01/10/2025 01/11/2020 Depression Screening 04/17/2025 04/17/2024, 04/11/2023, 03/14/2023, Additional history exists Regular Well Visit/Exam 18-64 04/17/2025 04/17/2024, 04/11/2023, 04/07/2022 Colon Cancer Screening-Colonoscopy 08/27/2029 08/27/2024, 08/22/2014 Pneumococcal vaccine <65 Aged Out 05/01/2021 No longer eligible based on patient's age to complete this topic Zoster Vaccine Completed 06/13/2022, 04/11/2022 Procedures Procedure Name Priority Date/Time Associated Diagnosis Comments SURGICAL PATHOLOGY Routine 08/27/2024 8: 40 AM SMALL BATTERY PLATE ASSEMBLER Encounter for screening colonoscopy COLONOSCOPY 08/27/2024 8:30 AM SMALL BATTERY PLATE ASSEMBLER COLON BIOPSY 08/27/2024 8:30 AM SMALL BATTERY PLATE ASSEMBLER Encounter for screening colonoscopy POC BLOOD GAS AND CHEMISTRIES, VENOUS Routine 08/27/2024 8:02 AM SMALL BATTERY PLATE ASSEMBLER SCREENING MAMMOGRAM Schedule Routine, Read Routine (OP Routine) 09/02/2022 HM PAP SMEAR WITH HPV Routine 01/11/2020 from Last 3 Months or Most Recently Relevant to Health Maintenance Results * Surgical pathology (08/27/2024 8:40 AM SMALL BATTERY PLATE ASSEMBLER) Tissue (Colon, Biopsy) 08/27/2024 8:40 AM SMALL BATTERY PLATE ASSEMBLER Narrative PATHOLOGY [facility] - 08/29/2024 5:18 PM SMALL BATTERY PLATE ASSEMBLER [facility] Department of Pathology [address] [place] [address] ?? Note to Patients: ??This report may [...] : ??1960 (Age: 64) Gender: ??F Address: ??[address] [facility] [place], [place] [address] [facility] #: [id number] Service: Gastro Location: Patient Type: [facility] OUTPATIENT ? Taken: 08/27/2024 Received: 08/27/2024 [...] Jar 0. ?? jjb/08/27/2024 10:47 PELON Barber, PA (ASCP) Microscopic slide review and interpretation for this case was performed at [facility], Department of Surgical Pathology, [address] [facility] [place], [place] [id number], ??[facility], [place] ??[address] ?? CLIA # [id number] us Kilo Johnson MD LAB PATHOLOGY ORDERABLES Final R esult PATHOLOGY [facility] * Colonoscopy (08/27/2024 8:30 AM SMALL BATTERY PLATE ASSEMBLER) Anatomical Region Laterality Modality Other Narrative Procedure Note Kilo Johnson MD - 08/27/2024 8:30 AM CST [facility] GI ENDOSCOPY Patient Name: Shila Martinez Procedure Date: 08/27/2024 8:30 AM Date of : 1960 Admit Type: Outpatient Age: 64 Gender: Female Attending MD: Kilo Johnson M.D. Room: [facility] ENDOSCOPY ROOM 06 Note Status: [...] On: 08/27/2024 8:30 AM Recognized by the [employer] for promoting quality in endoscopy Kilo Johnson MD ENDOSCOPY PROCEDURES Final Resul t * (ABNORMAL) POC Blood Gas and Chemistries, Venous - (08/27/2024 8:02 AM SMALL BATTERY PLATE ASSEMBLER) pH,nate POC 7.32 7.32 - 7.43 pCO2, nate POC 48 40 - 50 mmHg [facility] pO2,nate POC 25 mmHg [facility] Comment: Interpretive Data No reference range established. Current interpretive data was last revised 2020. HCO3, nate (Calc) POC 24 20 - 30 mmol/L [facility] Base excess, nate POC -2 mmol/L [facility] Comment: Interpretive Data No reference range established. Current interpretive data was last revised 2020. Hemoglobin, nate POC 16.7(H) 11.9 - 15.5 g/dL [facility] Hematocrit, nate POC 49.0(H) 35.6 - 45.5 % [facility] Sodium, nate POC 140 135 - 145 mmol/L [facility] Potassium, nate POC 3.7 3.3 - 4.9 mmol/L [facility] Comment: Interpretive Data This method is not able to assess for hemolysis, which may falsely increase potassium concentrations. If further testing is needed to evaluate this result, consider in-laboratory plasma potassium. Current Interpretive Data was last revised on 2022. Glucose, nate POC 81 70 - 199 mg/dL [facility] Ionized Calcium, nate POC 5.10 4.50 - 5.10 mg/dL [facility] Blood 08/27/2024 8:02 AM SMALL BATTERY PLATE ASSEMBLER 08/27/2024 8:02 AM SMALL BATTERY PLATE ASSEMBLER Kilo Johnson MD LAB POCT ORDERABLES - DEVICE Fin al Result ALESHA [address] [facility] Department [place] [address] * Screening Mammogram (09/02/2022) Anatomical Region Laterality Modality Breast N/A Mammography 09/02/2022 Historical Provider MD IMG MAMMO PROCEDURES Ayaka l Result * HM PAP SMEAR WITH HPV (01/11/2020) 01/11/2020 Historical Provider HEALTH MAINTENANCE Final Result from Last 3 Months or Most Recently Relevant to Health Maintenance [place] Care Teams Wooden Furniture Polisher Relationship Specialty Start Date End Date Estefany Lei MD [address] [place] [id number] PCP - General Internal Medicine 04/07/22
--- OUTSIDE RECORDS SUMMARY | 2024-09-20 18:44 | XMS_ITS | Encounter Summary ---
Author Organization [facility] Address [address] [place] [address] Care Team Providers Care Ceramic Painter Name Role Phone Estefany Lei MD Primary Care Provider Encounter Details Date Type Department Care Team (Late st Contact Info) Description 04/17/2024 Orders Only [facility] Gastroenterology at [address] [place] [address] Kilo Johnson MD [address] [place] [address] [address] [place] [address] Encounter for screening colonoscopy (Primary Dx) Social History Tobacco Use Types Packs/Day Years [...] on file Legal Sex Female 12:44 AM 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 Pt sees Dr. Bustillo. She denies taking ASA/Blood thinners. CSC scheduled for 08/27/2024 at 8:30 am. M&D Instructions mailed. documented in this encounter Plan of Treatment Not on file documented as of this encounter Visit Diagnoses Diagnosis Encounter for screening colonoscopy- Primary documented in this encounter Orders Case Request Count Last Ordered Date First Orde red Date CASE REQUEST OPERATING ROOM 1 04/17/2024 documented in this encounter Care Teams Ceramic Painter Relationship Specialty Start Date End Date Estefany Lei MD [address] [place] [id number] PCP - General Internal Medicine 04/07/22 documented as of this encounter
--- OUTSIDE RECORDS SUMMARY | 2024-09-20 18:44 | XMS_ITS | Encounter Summary ---
Author Organization [facility] Address [address] [facility] [place] [address] Care Team Providers Care Body Service Team Member Name Role Phone Unavailable Primary Care Provider Unavailabl e Encounter Details Date Type Department Care Team (Latest Contact Info) Description 06/30/2020 Travel Social History Tobacco Use Types Packs/Day [...] have Coronavirus / COVID-19? No / Unsure 06/30/2020 1:51 PM CDT documented as of this encounter Plan of Treatment Not on file documented as of this encounter Visit Diagnoses Not on filedocumented in this encounter
--- OUTSIDE RECORDS SUMMARY | 2024-09-20 18:44 | XMS_ITS | Encounter Summary ---
Author Organization [facility] Address [address] [place] [address] Care Team Providers Care Transmitter Operator Name Role Phone Unavailable Primary Care Provider Unavailabl e Reason for Visit * Reason Comments Imm Inj Encounter Details Date Type Department Care Team (Late st Contact Info) Description 06/30/2020 2:00 PM CDT Office Visit [facility] AT [address] [phone] Provider, [facility] Need for vaccination (Primary Dx) Social History Tobacco Use Types [...] PM CDT documented as of this encounter Progress Notes * Fadi Camejo APRN-CNP - 06/30/2020 2:01 PM CDT Shila Martinez is a .60 year old .female patient, here for: Chief Complaint Patient presents with ??? Imm Inj Orders Placed This Encounter ??? FLU VACCINE QUAD IIV4 SPLIT PF IM Patient tolerated without difficulty. Hemostasis achieved, and sterile band-aid placed. Immunization questionnaire scanned into the medical record. -Advised patient to keep a record of all vaccinations. (may use [facility] MyChart if desired) -May take Tylenol (acetaminophen) as needed for aches/pains per package directions. -If you develop redness, swelling at the injection site; it should resolve on its own within 5-7 days of injection. Use warm compresses as needed to the site. -Return to clinic for an evaluation if needed. -Current CDC VIS Handout given Follow-up with your No primary care provider on file. as directed. If no PCP listed, referral offered. .GUME Harrington 06/30/2020 2:01 PM documented in this encounter Plan of Treatment Not on file documented as of this encounter Visit Diagnoses Diagnosis Need for vaccination- Primary Need for prophylactic vaccination and inoculation against unspecified single disease documented in this encounter
--- OUTSIDE RECORDS SUMMARY | 2024-09-20 18:44 | XMS_ITS | Referral Summary ---
Author Organization [facility] Address [address] [place] [address] Care Team Providers Care Gear Technician Name Role Phone Unavailable Primary Care Provider Unavailabl e Source Comments [facility],non-owned Affiliates and Associated Physician Practices is amultiple site organization consisting of ambulatory clinics and hospital sitesin [place], [place], [place] and [place]. This disclosure is being madepursuant to the Care Everywhere program and may not contain all information available regarding this patient. Last updated 18.[facility] Allergies Active Allergy Reactions Criticality Noted Date Comments Terbinafine Other 06/21/2021 Itching and abdominal pain Penicillins Rash Medium 07/10/2019 Immunizations Name Administration Dates Next Due INFLUENZA VACCINE, QUADR. (F LUZONE; FLULAVAL; FLUARIX; AFLURIA QUADRIVALENT; 6MO+), 0.5 ML (IIV4) 06/21/2021,06/30/2020,07/10/2019 Social History Tobacco Use Types Packs/Day Years Used Date Smoking Tobacco: Never Assessed Sex and Gender Information Value Date Recorded Sex Assigned at Not on file Gender Identity Not on file Sexual Orientation Not on file Plan of Treatment Not on file
--- OUTSIDE RECORDS SUMMARY | 2024-09-20 18:44 | XMS_ITS | Encounter Summary ---
Author Organization [facility] Address [address] [place] [address] Care Team Providers Care Puncher Name Role Phone Unavailable Primary Care Provider Unavailabl e Encounter Details Date Type Department Care Team (Latest Contact Info) Description 06/18/2021 Travel Social History Tobacco Use Types Packs/Day [...] have Coronavirus / COVID-19? No / Unsure 06/18/2021 12:09 PM CDT documented as of this encounter Plan of Treatment Not on file documented as of this encounter Visit Diagnoses Not on filedocumented in this encounter
--- OUTSIDE RECORDS SUMMARY | 2024-09-20 18:44 | XMS_ITS | Encounter Summary ---
Author Organization [facility] Address [address] [place] [address] Care Team Providers Care Cardiovascular Rn Name Role Phone Estefany Lei MD Primary Care Provider Reason for Visit * Auth/Cert (Routine) Specialty Diagnoses / Procedures Referred By Contac t Referred To Contact Diagnoses Encounter for screening colonoscopy Encounter for screening colonoscopy [Z12.11] Procedures [place] COLONOSCOPY,DIAGNOSTIC COLONOSCOPY Referral ID Status Reason Start Date Expiration Date Visits Re quested Visits Authorized [id number] 1 1 Encounter Details Date Type Department Care Team (Late st Contact Info) Description 08/27/2024 8:30 AM LARGE ANIMAL VETERINARIAN Anesthesia Event [facility] [address] [place] [address] Irving Gonzalez MD [address] [place] [address] Anesthesia Record Procedure Summary Procedure Name Responsible Anesthesiologist Anesthesia Start Time Anesthesia Stop Time COLON BIOPSY (Colon) Irving Gonzalez MD 08/27/24 0830 08/27/24 0852 Events Date Time Event Comment 08/27/2024 0819 0830 An Start 0830 An Start Data 0830 In Room 0832 An Induction The patient was reevaluated immediately before moderate or deep sedation use and before anesthesia induction. 0834 Proc Start 0834 Anesthesia Ready 0851 Proc Fin 0852 an stop data 0852 Handoff to RN I completed my handoff to the receiving nurse during which we: 1. Patient identified 2. Responsible provider identified 3. Pertinent medical history reviewed 4. Procedure type and surgical course discussed 5. Intraoperative anesthetic management and any significant issues discussed 6. Expectations and concerns for postop period discussed 7. Questions solicited from receiving nurse 8. Patient disposition at the time of handoff: No value filed. 0852 An Stop 0853 Out of Room Meds Name Total lidocaine (cardiac) syringe 2 % 100 mg propofol 80 mg propofol 113.8 mg * Agents Name O2% N2O O2 N2O Air * Blood No blood administrations on file. Lines, Drains, and Airways Type Details Placement Removal Peripheral IV Placement Date: 08/27/24; Placement Time: 809; Catheter Size: 20 G; Orientation: Left, Posterior; Location: Hand; Inserted by: JEANINE AMADOR; Insertion Attempts: 1; Patient Tolerance: Tolerated well; Removal Date: 08/27/24; Removal Time: 92308/27/24809 by Elbert Merida RN 08/27/24923 by Elbert Merida RN documented in this encounter Social History Tobacco Use Types Packs/Day Years [...] on file Legal Sex Female 12:44 AM LARGE ANIMAL VETERINARIAN Gender Identity Not on file Sexual Orientation Not on file documented as of this encounter OR Notes * Anesthesia Postprocedure Evaluation - Irving Gonzalez MD - 08/27/2024 10:00 AM CST Patient: Shila Martinez Procedure Summary Date: 08/27/24 Room / Location: [facility] ENDOSCOPY ROOM [facility] END[facility]COPY Anesthesia Start: 829 Anesthesia Stop: 851 Procedure: COLON BIOPSY (Colon) Diagnosis: Encounter for screening colonoscopy (Encounter for screening colonoscopy [Z12.11]) Providers: Kilo Johnson MD Responsible Provider: Irving Gonzalez MD Anesthesia Type: MAC ASA Status: 2 Anesthesia Type: MAC Last vitals BP 125/86 Pulse 68 Temp 36.4 ??C (97.6 ??F) (Tympanic) Resp 14 SpO2 99% Anesthesia Post Evaluation Patient location during evaluation: PACU Patient participation: complete - patient participated Level of consciousness: fully awake Pain management: adequate Airway patency: adequate Cardiovascular status: acceptable Respiratory status: acceptable Hydration status: acceptable Pt is: normothermic Nausea/Vomiting status: none No notable events documented. E ANIMAL VETERINARIAN * Anesthesia Preprocedure Evaluation - Irving Gonzalez MD - 08/27/2024 8:08 AM CST Images from the original note were not included. Anesthesia Evaluation Shila Martinez is a 64 y.o. female COLONOSCOPY (Colon) Pre-Op Diagnosis Codes: * Encounter for screening colonoscopy [Z12.11] HISTORY Past Medical History Information obtained from: patient and chart. Information obtained during: In Person Neurological Neuro/Psych system: negative Cardiovascular + Other arrhythmia - PSVT. Pertinent negatives: CAD ; [place] and negative for CHF Valvular heart disease: Bicuspid aortic valve. Respiratory Pertinent negatives: non-smoker Respiratory system: negative Hepatic / Heme Hepatic/Heme system: negative Renal / Renal/ system: negative Endocrine / Other Pertinent negatives: diabetes mellitus and thyroid disease Day of Surgery assessments + Possibility of assessed - ruled out by patient's provided history. Istat noted Patient Active Problem List Diagnosis Date Noted Encounter for screening colonoscopy 04/17/2024 Bicuspid aortic valve 04/09/2024 Oral lesion 04/05/2023 Paroxysmal supraventricular tachycardia (HCC) 2023 Past Medical History: Diagnosis Date Heart disease Hemorrhoids Urinary tract infection Past Surgical History: Procedure Laterality Date SECTION COLONOSCOPY TUBAL LIGATION VULVA SURGERY OB History No obstetric history on file. Allergies Allergen Reactions Penicillins Terbinafine Other (See comments) Itching and abdominal pain Taking? Last Dose Start Date End Date Provider alendronate (FOSAMAX) 70 mg/75 mL solution Past Week -- -- Vianney Rogers MD efinaconazole 10 % solution with applicator Unknown 04/07/22 -- Estefany Lei MD Apply 1 application topically daily magnesium oxide 400 mg magnesium capsule Unknown -- -- Vianney Rogers MD naproxen (ALEVE) 220 mg tablet Unknown -- -- Vianney Rogers MD spironolactone (ALDACTONE) 100 mg tablet 08/26/2024 -- -- Vianney Rogers MD Current Facility-Administered Medications: sodium chloride 0.9% 0.9% IVPB - ADS Override Pull, , , Social History Tobacco Use Smoking Status Former Types: Cigarettes Smokeless Tobacco Never Alcohol Use: Not At Risk (08/27/2024) AUDIT-C Frequency of Alcohol Consumption: Monthly or less Average Number of Drinks: 1 or 2 Frequency of Binge Drinking: Never Substance and Sexual Activity Drug Use Yes Types: Alcohol Family History Problem Relation Age of Onset Hypertension Mother Obesity Mother Skin cancer Mother Coronary artery disease Father Diabetes type II Father Hypertension Father Melanoma Sister Vitals: 08/27/24 0729 BP: 120/77 Pulse: 78 Resp: 18 Temp: 36.4 ??C (97.6 ??F) SpO2: 98% PT: No results found for requested labs within last 30 days. INR: No results found for requested labs within last 30 days. APTT: No results found for requested labs within last 30 days. Hgb A1C: No results found for requested labs within last 30 days. CBC RBC: No results found for requested labs within last 30 days. RDW: No results found for requested labs within last 30 days. MCHC: No results found for requested labs within last 30 days. MCH: No results found for requested labs within last 30 days. MCV: No results found for requested labs within last 30 days. Hct: No results found for requested labs within last 30 days. Hgb: No results found for requested labs within last 30 days. WBC: No results found for requested labs within last 30 days. MPV: No results found for requested labs within last 30 days. Platelets: No results found for requested labs within last 30 days. RDW CV: No results found for requested labs within last 30 days. RDW Sd: No results found for requested labs within last 30 days. BMP Glucose: No results found for requested labs within last 30 days. Calcium: No results found for requested labs within last 30 days. Sodium: No results found for requested labs within last 30 days. Potassium: No results found for requested labs within last 30 days. CO2: No results found for requested labs within last 30 days. Chloride: No results found for requested labs within last 30 days. BUN: No results found for requested labs within last 30 days. Creatinine: No results found for requested labs within last 30 days. STOP-Bang Total Score: 1 DOS Physical Exam Medical history, medications, and allergies reviewed. Attestation: This PAT evaluation 08/27/2024. Airway Exam: Mallampati: II Cervical ROM: FROM Cardiovascular Exam: Rate: regular Rhythm: regular Negative for Murmur JVD negative Pulmonary Exam: LCTA, bilat Coarse breath sounds negative Crackles negative Basilar Crackles negative Rhonchi negative EENT Exam: trachea midline Skin Exam: Skin is warm. Current state: Patient's current state is cooperative and interactive. Anesthesia Plan ASA 2 My patient is approved for the Anesthesia Controlled Medication protocol when under care of a DIRECTOR RECORDS MANAGEMENT Planned anesthesia: MAC Comments: prn general anesthesia Induction: Induction: intravenous. Postoperative Plan: Postoperative administration opioids intended. Patient's planned disposition post procedure is Outpatient. Informed Consent: Discussed plan with DIRECTOR RECORDS MANAGEMENT. Anesthesia plan and risks discussed with patient. Consent and Attending signature: I and/or my designee have discussed the anesthesia plan, benefits, possible alternatives, parental presence at time of induction (if indicated), and clinically relevant risks that may include dental injury, unintentional awareness, and/or other complications. The patient and/or parent/legal guardian understand, and agree to proceed. All questions answered. E ANIMAL VETERINARIAN E ANIMAL VETERINARIAN E ANIMAL VETERINARIAN documented in this encounter Plan of Treatment Not on file documented as of this encounter Visit Diagnoses Not on filedocumented in this encounter Administered Medications Inactive Administered Medications - up to 3 most recent administrations Medication Order MAR Action Action Date Dose Rate Site lidocaine (cardiac) (XYLOCAINE) preservative free injection intravenous, As needed, Starting on Tue08/27/24 at 0832, Anesthesia Intra-op, Indications: Ventricular ArrhythmiasIndications :Ventricular Arrhythmias Given 08/27/2024 8:32 AM LARGE ANIMAL VETERINARIAN 100 mg propofoL (DIPRIVAN) 10 mg/mL IV intravenous, As needed, Starting on Tue08/27/24 at 0832, Anesthesia Intra-op Given 08/27/2024 8:32 AM LARGE ANIMAL VETERINARIAN 80 mg propofoL (DIPRIVAN) 10 mg/mL IV intravenous, Continuous PRN, Starting on Tue08/27/24 at 0833, Anesthesia Intra-op Rate/Dose Change 08/27/2024 8:46 AM LARGE ANIMAL VETERINARIAN 100 mcg/kg/min 31.32 mL/hr Rate/Dose Change 08/27/2024 8:37 AM LARGE ANIMAL VETERINARIAN 120 mcg/kg/min 37. 584 mL/hr New Bag 08/27/2024 8:33 AM LARGE ANIMAL VETERINARIAN 150 mcg/kg/min 46.98 mL/ hr documented in this encounter Care Teams Cardiovascular Rn Relationship Specialty Start Date End Date Estefany Lei MD [address] [place] [id number] PCP - General Internal Medicine 04/07/22 documented as of this encounter
--- OUTSIDE RECORDS SUMMARY | 2024-09-20 18:44 | XMS_ITS | Encounter Summary ---
Author Organization [facility] Healthcare Address [address] [place] [address] Care Team Providers Care Music Theory Teacher Name Role Phone Estefany Lei MD Primary Care Provider Reason for Visit * Auth/Cert (Routine) Specialty Diagnoses / Procedures Referred By Contac t Referred To Contact Diagnoses Encounter for screening colonoscopy Encounter for screening colonoscopy [Z12.11] Procedures [place] COLONOSCOPY,DIAGNOSTIC COLONOSCOPY Referral ID Status Reason Start Date Expiration Date Visits Re quested Visits Authorized [id number] 1 1 Encounter Details Date Type Department Care Team (Late st Contact Info) Description 08/27/2024 8:30 AM LINSEED OIL ORDER FILLER - 08/27/2024 9:00 AM LINSEED OIL ORDER FILLER Surgery [facility] [address] [place] [address] Kilo Johnson MD [address] [place] [address] [id number] COLON BIOPSY Surgery Details Date/Time Status Location OR Service Patient Class Case Class Case Type Trauma Case? 08/27/2024 8:30 AM Posted [facility] ENDOSCOPY GI 06 Gastroenterology Outpatient Elective Panel 1 Procedure LRB Anes Op Region Wound Class Comments COLON BIOPSY N/A Monitor Anesthes ia Care Colon Class II - Clean Contaminated Surgeon Surgeon Role Service Panel Kilo Johnson MD Primary Gastroenterology 1 documented in this encounter Social History Tobacco [...] on file Legal Sex Female 12:44 AM LINSEED OIL ORDER FILLER Gender Identity Not on file Sexual Orientation Not on file documented as of this encounter Last Filed Vital Signs Vital Sign Reading Time Taken Comments Blood Pressure 88/65 08/27/2024 8:55 AM LINSEED OIL ORDER FILLER Pulse 68 08/27/2024 8:55 AM LINSEED OIL ORDER FILLER Temperature 36.4 ??C (97.6 ??F) 08/27/2024 8:55 AM CS T Respiratory Rate 15 08/27/2024 8:55 AM LINSEED OIL ORDER FILLER Oxygen Saturation 100% 08/27/2024 8:55 AM LINSEED OIL ORDER FILLER Inhaled Oxygen Concentration - - Weight 52.2 kg (115 lb) 08/27/2024 7:29 AM LINSEED OIL ORDER FILLER Height - - Body Mass Index 21.03 [...] understands and consents to having procedure done. EED OIL ORDER FILLER documented in this encounter Procedure Notes * Kilo Johnson MD - 08/27/2024 8:30 AM CSTAssociated Order(s): COLONOSCOPY [facility] GI ENDOSCOPY Patient Name: Shila Martinez Procedure Date: 08/27/2024 8:30 AM Date of : 1960 Admit Type: Outpatient Age: 64 Gender: Female Attending MD: Kilo Johnson M.D. Room: [facility] ENDOSCOPY ROOM 06 Note Status: Finalized Procedure: [...] On: 08/27/2024 8:30 AM Recognized by the [place] [employer] for promoting quality in endoscopy EED OIL ORDER FILLER documented in this encounter Miscellaneous Notes * Pre-Procedure Instructions - Tamela Kirk RN - 08/20/2024 9:25 AM LINSEED OIL ORDER FILLER No alcohol or smoking 12 hours before surgery [place] teeth but do not swallow Shower or bathe, do no apply powders or lotions Leave all jewelry and valuables at home Expect to remove wigs, dentures, partials, contact lenses, body piercings and prosthesis Bring your glasses and hearing aide/s Make plans for responcible adult ot drive you home or accompany you home Bring living will and/or power of associate pathologist paperwork if you have one Follow GI physician instructions regarding blood thinner and vitamins Bring inhalers Take prep according to GI physician Please take the following medications with a sip of water the AM of procedure: hold Spirolactone EED OIL ORDER FILLER documented in this encounter Plan of Treatment Not on file documented as of this encounter Procedures Procedure Name Priority Date/Time Associated Diagnosis Comments SURGICAL PATHOLOGY Routine 08/27/2024 8: 40 AM LINSEED OIL ORDER FILLER Encounter for screening colonoscopy COLONOSCOPY 08/27/2024 8:30 AM LINSEED OIL ORDER FILLER COLON BIOPSY 08/27/2024 8:30 AM LINSEED OIL ORDER FILLER Encounter for screening colonoscopy POC BLOOD GAS AND CHEMISTRIES, VENOUS Routine 08/27/2024 8:02 AM LINSEED OIL ORDER FILLER documented in this encounter Results * Surgical pathology (08/27/2024 8:40 AM LINSEED OIL ORDER FILLER) Tissue (Colon, Biopsy) 08/27/2024 8:40 AM LINSEED OIL ORDER FILLER Narrative PATHOLOGY [facility] - 08/29/2024 5:18 PM LINSEED OIL ORDER FILLER [facility] Department of Pathology [address] [place], [place] [address] ?? Note to Patients: ??This report may [...] : ??1960 (Age: 64) Gender: ??F Address: ??[address] [place] [address] [place], [place] [address] Hospital #: [id number] Service: Gastro Location: Patient Type: [facility] SDS OUTPATIENT ? Taken: 08/27/2024 Received: 08/27/2024 Accessioned: [...] 0. ?? jjb/08/27/2024 10:47 PELON Barber, RANJIT (ASCP) Microscopic slide review and interpretation for this case was performed at [facility], Department of Surgical Pathology, [address] [facility] [place], [place] [id number], ??[place], [place] ??[address] ?? CLIA # [id number] us Kilo Johnson MD LAB PATHOLOGY ORDERABLES Final R esult PATHOLOGY [facility] * Colonoscopy (08/27/2024 8:30 AM LINSEED OIL ORDER FILLER) Anatomical Region Laterality Modality Other Narrative Procedure Note Kilo Johnson MD - 08/27/2024 8:30 AM CST [facility] GI ENDOSCOPY Patient Name: Shila Martinez Procedure Date: 08/27/2024 8:30 AM Date of : 1960 Admit Type: Outpatient Age: 64 Gender: Female Attending MD: Kilo Johnson M.D. Room: [facility] ENDOSCOPY ROOM 06 Note Status: Finalized Procedure: [...] On: 08/27/2024 8:30 AM Recognized by the [place] [employer] for promoting quality in endoscopy Kilo Johnson MD ENDOSCOPY PROCEDURES Final Resul t * (ABNORMAL) POC Blood Gas and Chemistries, Venous - (08/27/2024 8:02 AM LINSEED OIL ORDER FILLER) pH,nate POC 7.32 7.32 - 7.43 pCO2, nate POC 48 40 - 50 mmHg [facility] pO2,nate POC 25 mmHg [facility] Comment: Interpretive Data No reference range established. Current interpretive data was last revised 2020. HCO3, nate (Calc) POC 24 20 - 30 mmol/L [facility] Base excess, nate POC -2 mmol/L [facility] Comment: Interpretive Data No reference range established. Current interpretive data was last revised 2020. Hemoglobin, nate POC 16.7(H) 11.9 - 15.5 g/dL [facility] Hematocrit, nate POC 49.0(H) 35.6 - 45.5 % [facility] Sodium, nate POC 140 135 - 145 mmol/L [facility] Potassium, nate POC 3.7 3.3 - 4.9 mmol/L [facility] Comment: Interpretive Data This method is not able to assess for hemolysis, which may falsely increase potassium concentrations. If further testing is needed to evaluate this result, consider in-laboratory plasma potassium. Current Interpretive Data was last revised on 2022. Glucose, nate POC 81 70 - 199 mg/dL [facility] Ionized Calcium, nate POC 5.10 4.50 - 5.10 mg/dL [facility] Blood 08/27/2024 8:02 AM LINSEED OIL ORDER FILLER 08/27/2024 8:02 AM LINSEED OIL ORDER FILLER Kilo Johnson MD LAB POCT ORDERABLES - DEVICE Fin al Result [facility]ES[facility] [address] [facility] Department of Laboratories [place], [place] [phone] documented in this encounter Visit Diagnoses Diagnosis Encounter for screening colonoscopy- Primary Encounter for screening colonoscopy documented in this encounter Admitting Diagnoses Diagnosis [...] Recently Administered Medications Times are shown in LINSEED OIL ORDER FILLER. PRN Medication Order 08/25/2024 08/26/2024 08/27/2024 meperidine [...] 08/27/2024 documented in this encounter Care Teams Music Theory Teacher Relationship Specialty Start Date End Date Estefany Lei MD [address] [place] [id number] PCP - General Internal Medicine 04/07/22 documented as of this encounter
--- OUTSIDE RECORDS SUMMARY | 2024-09-20 18:44 | XMS_ITS | Encounter Summary ---
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 Gender Identity Not on file Sexual Orientation Not on file documented as of this encounter Miscellaneous Notes * Telephone Encounter - Brooklynn Bell MA - 06/01/2024 1:42 PM CDT Updated- Dexa- Dalla Tiffany CAREER AND GUIDANCE COUNSELOR documented in this encounter Plan of Treatment Not on file documented as of this encounter Procedures Procedure Name Priority Date/Time Associated Diagnosis Comments DEXA SCAN Routine 05/25/2024 documented in this encounter Results * DEXA SCAN (05/25/2024) Scribed Deca Scan Abnormal us Historical Provider HEALTH MAINTENANCE Final Result documented in this encounter Visit Diagnoses Not on filedocumented in this encounter Care Teams High [address] Justice Relationship Specialty Start Date End Date Estefany Lei MD [address] [place] [id number] PCP - General Internal Medicine 04/07/22 documented as of this encounter
--- OUTSIDE RECORDS SUMMARY | 2024-09-20 18:44 | XMS_ITS | Encounter Summary ---
Author Organization [facility] Address [address] [place] [address] Care Team Providers Care Subway Train Operator Name Role Phone Unavailable Primary Care Provider Unavailabl e Reason for Visit * Reason Onset Date Comments Imm Inj 06/21/2021 Encounter Details Date Type Department Care Team (Late st Contact Info) Description 06/21/2021 2:00 PM CDT Office Visit [facility] AT [address] [phone] Provider, [facility] Need for prophylactic vaccination and inoculation against influenza (Primary Dx) Social History Tobacco Use Types [...] have Coronavirus / COVID-19? No / Unsure 06/21/2021 1:56 PM CDT documented as of this encounter Progress Notes * Delmis Hinton APRN-CNP - 06/21/2021 2:03 PM CDT Flu screening checklist was reviewed with the patient. VIS was given prior to administration. Injection site aseptically cleansed and injection given per Immunization(s) protocol. See Imm/Injections activity for details. documented in this encounter Plan of Treatment Not on file documented as of this encounter Visit Diagnoses Diagnosis Need for prophylactic vaccination and inoculation against influenza- Primary documented in this encounter
--- OUTSIDE RECORDS SUMMARY | 2024-09-20 18:44 | XMS_ITS | Encounter Summary ---
Author Organization [facility] Address [address] [facility] [place] [address] Care Team Providers Care Maori Physiotherapist Name Role Phone Unavailable Primary Care Provider Unavailabl e Encounter Details Date Type Department Care Team (Latest Contact Info) Description 06/21/2021 Travel Social History Tobacco Use Types Packs/Day [...]
--- OUTSIDE RECORDS SUMMARY | 2024-09-20 18:44 | XMS_ITS | Encounter Summary ---
Author Organization [facility] Address [address] [place] [address] Care Team Providers Care Floor Sanding Machine Operator Name Role Phone Unavailable Primary Care Provider Unavailabl e Reason for Visit * Reason Comments Imm Inj Encounter Details Date Type Department Care Team (Late st Contact Info) Description 07/10/2019 2:40 PM CDT Office Visit [facility] AT [address] [phone] [facility] for vaccination (Primary Dx) Social History Tobacco Use Types Packs/Day Years Used Date Smoking Tobacco: Never Assessed Sex and Gender Information Value Date Recorded Sex Assigned at Not on file Gender Identity Not on file Sexual Orientation Not on file documented as of this encounter Progress Notes * Fadi Camejo APRN-JAI ALAI PLAYER - 07/10/2019 2:19 PM CDT Shila Martinez is a .59 year old .female patient, here for: Chief Complaint Patient presents with ??? Imm Inj Orders Placed This Encounter ??? FLU VACCINE QUAD IIV4 SPLIT PF IM Patient tolerated without difficulty. Hemostasis achieved, and sterile band-aid placed. Immunization questionnaire scanned into the medical record. -Advised patient to keep a record of all vaccinations. (may use [facility] MyChart if desired) -May take Tylenol (acetaminophen) [...] no PCP listed, referral offered. .GUME Harrington 07/10/2019 2:19 PM documented in this encounter Plan of Treatment Not on file documented as of this encounter Visit Diagnoses Diagnosis Need for vaccination- Primary Need for prophylactic vaccination and inoculation against unspecified single disease documented in this encounter
--- OUTSIDE RECORDS SUMMARY | 2024-09-20 18:44 | XMS_ITS | Patient Health Summary ---
Author Organization [facility] Address [address] [place] [address] Care Team Providers Care Computer Game Programmer Name Role Phone Unavailable Primary Care Provider Unavailabl e Note from [facility],non-owned Affiliates and Associated Physician Practices is amultiple site organization consisting of ambulatory clinics and hospital sitesin [place], [place], [place] and [place]. This disclosure is being madepursuant to the Care Everywhere program and may not contain all information available regarding this patient. Last updated 18.[facility] Allergies * Terbinafine(Other) * Penicillins(Rash) -Medium Criticality * Terbutaline(Unknown),Inactive Immunizations * INFLUENZA VACCINE, QUADR. (FLUZONE; FLULAVAL; FLUARIX; AFLURIA QUADRIVALENT; 6MO+), 0.5 ML (IIV4)(Given 06/21/2021, 06/30/2020, 07/10/2019) Social History Tobacco Use Types Packs/Day Years Used Date Smoking Tobacco: Never Assessed Sex and Gender Information Value Date Recorded Sex Assigned at Not on file Gender Identity Not on file Sexual Orientation Not on file
--- OUTSIDE RECORDS SUMMARY | 2024-09-20 18:44 | XMS_ITS | Clinical Summary ---
Author Organization [facility] Address [address] [facility] [address] [place] [address] Care Team Providers Care Fishing Hand Name Role Phone Unavailable Primary Care Provider Unavailabl e Source Comments [facility],non-owned Affiliates and Associated Physician Practices is amultiple site organization consisting of ambulatory clinics and hospital sitesin [place], [place] and [place]. This disclosure is being madepursuant to the Care Everywhere program and may not contain all information available regarding this patient. Last updated 18.[facility] Allergies Active Allergy Reactions Criticality Noted Date [...] Orientation Not on file Plan of Treatment Health Maintenance Due Date Last Done Comments COLOGUARD (AGES 45-75) - COL ON CA SCREENING 1961 COLON MONITORING 1961 COLONOSCOPY - COLON CA SCREENING 1961 CT COLONOGRAPHY - COLON CA SCREENING 1961 Colorectal Cancer Screening 1961 FIT - COLON CA SCREENING 1961 FLEX SIG - COLON CA SCREENING 1961 LIPID TESTING 1961 MAMMOGRAM 1961 PAP SMEAR 1961 HIV SCREENING 1976 HEPATITIS C SCREENING 03/19/1979 DTAP/TDAP/TD VACCINES (1 - Tdap) 1980 ZOSTER VACCINE (1 of 2) 2011 COVID-19 VACCINE (3 - 2023-2 5 season) 2024 12/19/2020, 11/21/2020 INFLUENZA VACCINE (#1) 2024 , 06/30/2020, 07/10/2019 DEPRESSION SCREENING 09/19/2024 Respiratory Syncytial Virus (RSV) Vaccine Pt: or over 60 yrs (1 - 1-dose 75+ series) 2036 HEPATITIS B VACCINE Aged Out No longe r eligible based on patient's age to complete this topic HIB VACCINE Aged Out No longer eligi ble based on patient's age to complete this topic HPV VACCINE Aged Out No longer eligi ble based on patient's age to complete this topic MENINGOCOCCAL VACCINE Aged Out No lidia winsome eligible based on patient's age to complete this topic PNEUMOCOCCAL VACCINE Aged Out No long er eligible based on patient's age to complete this topic
--- OUTSIDE RECORDS SUMMARY | 2024-09-20 18:45 | XMS_ITS | Encounter Summary ---
Author Organization [facility] Address [address] [place] [id number] Care Team Providers Care Dining Room Attendant Name Role Phone Estefany Lei MD Primary Care Provider Reason for Visit * Reason Onset Date Comments Medical Question/Miscellaneous 01/28/2023 Encounter Details Date Type Department Care Team (Late st Contact Info) Description 01/28/2023 Telephone [facility] Primary Care [address] [place] [phone] Estefany Lei MD [address] [place] [address] [place] [phone] Medical Question/Miscellaneous Social History Tobacco Use Types Packs/Day Years Used Date Smoking Tobacco: Never AUDIT-C Answer Date Recorded Q1: [...] points, staff should administer the PHQ-9) 0 11/29/2022 Comments Unknown Sex and Gender Information Value Date Recorded Sex Assigned at Not on file 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 Caller???s Call back #: [phone] Does message need to be routed? No documented in this encounter Plan of Treatment Not on file documented as of this encounter Visit Diagnoses Not on filedocumented in this encounter Care Teams Dining Room Attendant Relationship Specialty Start Date End Date Estefany Lei MD [address] [place] [id number] PCP - General Internal Medicine 04/07/22 documented as of this encounter
--- OUTSIDE RECORDS SUMMARY | 2024-09-20 18:45 | XMS_ITS | Encounter Summary ---
Author Organization [facility] Address [address] [address] Care Team Providers Care Bridge Contractor Name Role Phone Estefany Lei MD Primary Care Provider Reason for Referral * Cardiology (Routine) - Closed Specialty Diagnoses / Procedures Referred By Contac t Referred To Contact Diagnoses Palpitations Procedures Transthoracic Echo (TTE) Complete W Doppler/CF Dajuan Joe NP [address] [place], [place] [address] Phone: tel: fax: [address] [phone] Referral ID Status Reason Start Date Expiration Date Visits Re quested Visits Authorized [id number] Closed 01/04/2023 03/04/2023 1 1 * Cardiology (Routine) - Closed Specialty Diagnoses / Procedures Referred By Contac t Referred To Contact Diagnoses Palpitations Procedures 48 HR Holter Monitor Dajuan Joe NP [address] [place] [address] Phone: tel: fax: [address] [phone] Referral ID Status Reason Start Date Expiration Date Visits Re quested Visits Authorized [id number] Closed 11/29/2022 12/29/2023 1 1 Reason for Visit * Reason Comments Palpitations Encounter Details Date Type Department Care Team (Late st Contact Info) Description 11/29/2022 8:30 AM CDT Office Visit [facility] Primary Care [address] [place] [phone] Dajuan Joe NP [address] [place] [phone] Palpitations (Primary Dx); Bicuspid aortic valve Social History Tobacco Use Types Packs/Day Years [...] on file 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 Gender Identity Not on file Sexual Orientation Not on file documented as of this encounter Last Filed Vital Signs Vital Sign Reading Time Taken Comments Blood Pressure 124/84 11/29/2022 8:29 AM CDT Pulse 63 11/29/2022 8:29 AM CDT Temperature 36.6 ??C (97.9 ??F) 11/29/2022 8:29 AM CD T Respiratory Rate - - Oxygen Saturation 99% 11/29/2022 8:29 AM CDT Inhaled Oxygen Concentration - - Weight 54.9 kg (121 lb) 11/29/2022 8:29 AM CDT Height 154.9 cm (5' 1 ) 11/29/2022 8:29 AM CDT Body Mass Index 22.86 11/29/2022 8:29 AM CDT documented in this encounter Progress Notes * Dajuan Joe NP - 11/29/2022 8:30 AM CDT Images from the original note were not included. Patient ID: Shila Martinez is a 62 y.o. female. Chief Complaint. Chief Complaint Patient presents with Palpitations HPI. Patient is a 62 y.o. female here for acute complaint visit HPI Palpitations: Noticed more last fall, have been more frequent. Originally felt like fluttering, butwill feel up into throat. Not heartburn, but fluttering. No shortness of breath, sometimes mild pressure. Caffeine 3 cups of coffee per morning, did cut back, diet orange soda as well, but cut this out. It has been better. Not interfering with daily activities. Has not had an ECHO in 20 years. Toe nail fungus started in 2005 and has lost the nail. Has used jublia. Taking spironolactone for adult acne. Seeing Dr. Castañeda. Bicuspid aortic valve; Colon Aug 2014 f/u 10 yrs; [place] Mammo: Aug 2021; [place] [facility] PAP: [facility]; pelvic last year, PAP 2019, new appt coming up. Dexa: wellness check [place] 3 yrs ago. Exercise: pickle ball 3 days per week, walking/biking. No weight training. - doing piliates 1x per week. Diet: Weight watchers. Vax: discussed the shingrix shot. 2 sons; Current Medications: Outpatient Encounter Medications as of 11/29/2022 Medication Sig Dispense Refill efinaconazole 10 % solution with applicator Apply 1 application topically daily 8 mL 3 magnesium gluconate 200 mg tablet 200 mg naproxen (ALEVE) 220 mg tablet Take by mouth 2 (two) times a day with meals spironolactone (ALDACTONE) 100 mg tablet Take 100 mg by mouth daily No facility-administered encounter medications on file as of 11/29/2022. Review of Systems: Review of Systems Constitutional: Negative for fatigue and fever. HENT: Negative for postnasal drip, rhinorrhea, sore throat and trouble swallowing. Eyes: Negative for pain and redness. Respiratory: Negative for cough, shortness of breath and wheezing. Cardiovascular: Positive for palpitations. Negative for chest pain and leg swelling. Gastrointestinal: Negative for abdominal pain, blood in stool, constipation, diarrhea, nausea and vomiting. Genitourinary: Negative for difficulty urinating, dysuria, frequency and hematuria. Skin: Negative for rash and wound. Neurological: Negative for dizziness, weakness, light-headedness and headaches. Psychiatric/Behavioral: Negative for dysphoric mood. The patient is not nervous/anxious. BP 124/84 (BP Location: Right arm, Patient Position: Sitting) Pulse 63 Temp 36.6 ??C (97.9 ??F)(Temporal) Ht 154.9 cm (5' 1 ) Wt 54.9 kg (121 lb) SpO2 99% BMI 22.86 kg/m?? Physical Exam: Physical Exam HENT: Head: Normocephalic and atraumatic. Right Ear: Tympanic membrane, ear canal and external ear normal. There is no impacted cerumen. Left Ear: Tympanic membrane, ear canal and external ear normal. There is no impacted cerumen. Nose: Nose normal. Mouth/Throat: Mouth: Mucous membranes are moist. Pharynx: Oropharynx is clear. Cardiovascular: Rate and Rhythm: Normal rate and regular rhythm. Heart sounds: Normal heart sounds. No murmur heard. No friction rub. No gallop. Pulmonary: Effort: Pulmonary effort is normal. No respiratory distress. Breath sounds: Normal breath sounds. No wheezing or rales. Lymphadenopathy: Cervical: No cervical adenopathy. Skin: General: Skin is warm and dry. Capillary Refill: Capillary refill takes less than 2 seconds. Neurological: Mental Status: She is alert and oriented to person, place, and time. Psychiatric: Behavior: Behavior normal. Thought Content: Thought content normal. Judgment: Judgment normal. Assessment & Plan: Diagnoses and all orders for this visit: Palpitations (Primary) Comments: ekg nsr. getting holter monitor, labs, and ECHO Orders: - ECG 12 lead - CBC with auto differential; Future - Comprehensive metabolic panel; Future - TSH reflex to free T4; Future - 48 HR Holter Monitor; Future - Transthoracic Echo (TTE) Complete W Doppler/CF; Future Bicuspid aortic valve Comments: Repeating ECHO BMI Follow-up includes: education provided. Dajuan Joe NP Cosigned by Estefany Lei MD at 11/29/2022 9:34 AM CDT documented in this encounter Procedure Notes * Dajuan Joe NP - 11/29/2022 8:30 AM CDTAssociated Order(s): ECG 12 lead Pre-Procedure Diagnose(s): Palpitations Post-Procedure Diagnose(s): Palpitations ECG 12 lead Date/Time: 11/29/2022 8:59 AM Performed by: Dajuan Joe NP Authorized by: Dajuan Joe NP Comparison: not compared with previous ECG Previous ECG: no previous ECG available Rhythm: sinus rhythm Rate: normal QRS axis: normal Conduction: conduction normal ST Segments: ST segments normal T Waves: T waves normal Clinical impression: normal ECG documented in this encounter Plan of Treatment Not on file documented as of this encounter Procedures Procedure Name Priority Date/Time Associated Diagnosis Comments THYROID FUNCTION CASCADE Routine 11/29/2022 12:21 PM CDT Palpitations CBC WITH AUTO DIFFERENTIAL Routine 11/29/2022 12:21 PM CDT Palpitations COMPREHENSIVE METABOLIC PANEL Routine 11/29/2022 12:21 PM CDT Palpitations ECG 12-LEAD Routine 11/29/2022 8:59 AM CDT Palpitations documented in this encounter Results * 48 HR Holter Monitor (01/20/2023 1:20 PM CDT) Anatomical Region Laterality Modality Electrocardiogra phy Narrative 01/28/2023 11:39 AM CDT 48 hour Holter monitor. ??01/20/2023-01/22/2023. Indications palpitations. Interpretation. ??The basic rhythm is sinus with average daily heart rate 79. ??Slowest heart rate 52 which was sinus bradycardia. ??Fastest heart rate 193 which was a short burst of SVT. ??Rare isolated premature supraventricular beats were seen with total with a total of 16. ??There was a 9 beat run of SVT rate 193. ??There was no atrial fibrillation or atrial flutter. ??Frequent single PVC was seen with a total of 5069. ??PVC burden 2.22%. ??Five ventricular couplet were seen. ??Runs of ventricular bigeminy. No V-tach.. ??Symptoms of heart skipping and palpitations were recorded which correlated with PVCs and with sinus tachycardia. Conclusions. ??Normal sinus rhythm with rare single PVCs and 9 beat run of SVT. ??Frequent single PVCs, PVC burden 2.22%, ventricular trigeminy, ventricular couplets ??symptoms correlated with the PVCs and with sinus tachycardia. us Dajuan Joe NP CV CARDIAC SERVICES PROCEDURE S Final Result * TRANSTHORACIC ECHO (TTE) COMPLETE W DOPPLER/CF WO CONTRAST (01/20/2023 1:08 PM CDT) Anatomical Region Laterality Modality Ultrasound 01/20/2023 1:08 PM CDT Narrative 01/21/2023 11:04 PM CDT ? Adult Echocardiogram + ----- ---+ :Name: SHILA MARTINEZ ?Study Date: 01/20/2023 ?Status: [facility] ?: : ?Patient Location: [facility] CARD^^^MHEHeight: 61 in ?: : ?Weight: 121 lbBP: 124/84 mmHg: :: 1960 ? Gender: Female ?BSA: 1.5 m2 ?: :Reason For Study: palpitations ? : :Ordering Physician: ?: :ABNER, DAJUAN ? : :Referring Physician: ? : :ESTEFANY LEI ? : :MONTSERRAT ?: :Performed By: Dena Dominguez, ? : :RDCS/RVT ? : + ----- ---+ Procedure A two-dimensional transthoracic echocardiogram with color flow and Doppler was performed. Left Ventricle The left ventricle is normal in size. There is normal left ventricular wall thickness. Left ventricular systolic function is normal. Ejection Fraction = 55-60%. The left ventricular wall motion is normal. Right Ventricle The right ventricle is normal size. The right ventricular systolic function is normal. Atria The left atrial size is normal. Right atrial size is normal. Mitral Valve The mitral valve is normal. There is no evidence of mitral valve prolapse. There is trace mitral regurgitation. Tricuspid Valve The tricuspid valve is normal. There is trace tricuspid regurgitation. Cannot assess RVSP due to lack of sufficient TR jet. Aortic Valve Aortic valve sclerosis' mild'. The aortic valve opens well. Difficult to assess number of leaflets. Aortic valve velocity is 234 cm/s. LVOT velocity is 122 cm/s. Aortic valve peak gradient is 22 mm/Hg. Aortic valve mean gradient is 10 mm/Hg. Aortic valve VTI is 46.2 cms, LVOT VTI is 26.2 cms. No aortic regurgitation is present. There is a 22 mmhg peak gradient and a 10 mmhg mean gradient across the aortic valve with an Aortic valve area of 2.0 cms2 with normal opening of the aortic valve on 2D imaging, c/w aortic sclerosis without significant stenosis. Pulmonic Valve The pulmonic valve is not well visualized. Pulmonic valve velocity is 105 cm/s. Trace pulmonic valvular regurgitation. Great Vessels The aortic root is normal size. IVC appears normal in size. IVC collapses normally with inspiration. Estimated right atrial pressure is ' 5-10' mmHg. Normal right heart pressures. Pericardium There is no pericardial effusion. Diastology Mitral inflow pattern is normal. E/E prime ratio is 8 -15 which is in the indeterminate zone. Interpretation Summary Left ventricular systolic function is normal. Ejection Fraction = 55-60%. The right ventricle is normal size. The right ventricular systolic function is normal. There is a 22 mmhg peak gradient and a 10 mmhg mean gradient across the aortic valve with an Aortic valve area of 2.0 cms2 with normal opening of the aortic valve on 2D imaging, c/w aortic sclerosis without significant stenosis. Normal right heart pressures. + + :Measurements with Normals ?: :IVSd: ?(0.6-1.2 ?? LVIDd: ?(3.5-5.7 ?? Ao root diam: ?(2.0-3.7 ?? : :0.67 cm ?cm) ?3.6 cm ?cm) ?2.6 cm ? cm) ?: :LVPWd: ? (0.6-1.1 ?? LVIDs: ?(3.1-4.6 ?? LA dimension: ?(1.9-4.0 ?? : :0.66 cm ?cm) ?2.2 cm ?cm) ?2.8 cm ? cm) ?: + + MMode/2D Measurements & Calculations FS: 38.6 % ?Ao root area: 5.1 cm2 ? LVOT diam: 2.1 cm EDV(Teich): 52.6 ml ? LVOT area: 3.4 cm2 ESV(Teich): 15.8 ml Doppler Measurements & Calculations MV E max allison: ?Ao V2 max: ?LV V1 max PG: ? SV(LVOT): 98.1 cm/sec ?222.3 cm/sec ?6.0 mmHg ?87.8 ml MV A max allison: ?Ao max P.8 mmHgLV V1 mean P.7 cm/sec ?Ao V2 mean: ? 2.0 mmHg MV E/A: 1.2 ?143.7 cm/sec ?LV V1 max: ? Ao mean PG: ? 122.0 cm/sec ? 10.0 mmHg ? LV V1 mean: ? Ao V2 VTI: 44.5 cm ??69.2 cm/sec ? ADELE(I,D): 2.0 cm2 ?? LV V1 VTI: 26.2 cm ? ADELE(V,D): 1.8 cm2 ? TV V2 max: ? PA V2 max: ?TR max allison: ? RAP systole: 60.7 cm/sec ?105.0 cm/sec ?200.0 cm/sec ?3.0 mmHg TV max P.5 mmHg ??PA max P.4 mmHg TR max P.0 mmHg ? RVSP(TR): 19.0 mmHg Electronically signed by: Chandni Red MD 01/21/2023 11:04 PM Procedure Note Chandni Red MD - 01/21/2023 Adult Echocardiogram + ----- ---+ :Name: SHILA MARTINEZ Study Date: 01/20/2023 Status: E: : Patient Location: [facility] CARD^^^MHEHeight: 61 in: : Weight: 121lbBP: 124/84 mmHg: :: 1960 Gender: Female BSA: 1.5 m2: :Reason For Study: palpitations: :Ordering Physician:: :DAJUAN JOE: :Referring Physician:: :ESTEFANY LEI: :MONTSERRAT: :Performed By: Dena Dominguez,: :ADEEL/RVT: + ----- ---+ Procedure A two-dimensional transthoracic echocardiogram with color flow and Dopplerwas performed. Left Ventricle The left ventricle is normal in size. There is normal left ventricularwall thickness. Left ventricular systolic function is normal. Ejection Fraction= 55-60%. The left ventricular wall motion is normal. Right Ventricle The right ventricle is normal size. The right ventricular systolicfunction is normal. Atria The left atrial size is normal. Right atrial size is normal. Mitral Valve The mitral valve is normal. There is no evidence of mitral valveprolapse. There is trace mitral regurgitation. Tricuspid Valve The tricuspid valve is normal. There is trace tricuspid regurgitation.Cannot assess RVSP due to lack of sufficient TR jet. Aortic Valve Aortic valve sclerosis' mild'. The aortic valve opens well. Difficult to assess number of leaflets. Aortic valve velocity is 234 cm/s. LVOTvelocity is 122 cm/s. Aortic valve peak gradient is 22 mm/Hg. Aortic valve meangradient is 10 mm/Hg. Aortic valve VTI is 46.2 cms, LVOT VTI is 26.2 cms. Noaortic regurgitation is present. There is a 22 mmhg peak gradient and a 10 mmhgmean gradient across the aortic valve with an Aortic valve area of 2.0 [id number] normal opening of the aortic valve on 2D imaging, c/w aortic sclerosiswithout significant stenosis. Pulmonic Valve The pulmonic valve is not well visualized. Pulmonic valve velocity is105 cm/s. Trace pulmonic valvular regurgitation. Great Vessels The aortic root is normal size. IVC appears normal in size. IVCcollapses normally with inspiration. Estimated right atrial pressure is ' 5-10'mmHg. Normal right heart pressures. Pericardium There is no pericardial effusion. Diastology Mitral inflow pattern is normal. E/E prime ratio is 8 -15 which is inthe indeterminate zone. Interpretation Summary Left ventricular systolic function is normal. Ejection Fraction = 55-60%. The right ventricle is normal size. The right ventricular systolic function is normal. There is a 22 mmhg peak gradient and a 10 mmhg mean gradient across theaortic valve with an Aortic valve area of 2.0 cms2 with normal opening of theaortic valve on 2D imaging, c/w aortic sclerosis without significant stenosis. Normal right heart pressures. + + :Measurements with Normals: :IVSd: (0.6-1.2 LVIDd: (3.5-5.7 Ao root diam:(2.0-3.7 : :0.67 cm cm) 3.6 cm cm) 2.6 cm cm): :LVPWd: (0.6-1.1 LVIDs: (3.1-4.6 LA dimension:(1.9-4.0 : :0.66 cm cm) 2.2 cm cm) 2.8 cm cm): + + MMode/2D Measurements & Calculations FS: 38.6 % Ao root area: 5.1 cm2 LVOT diam: 2.1 cm EDV(Teich): 52.6 ml LVOT area: 3.4 cm2 ESV(Teich): 15.8 ml Doppler Measurements & Calculations MV E max allison: Ao V2 max: LV V1 max PG: SV(LVOT): 98.1 cm/sec 222.3 cm/sec 6.0 mmHg 87.8 ml MV A max allison: Ao max P.8 mmHgLV V1 mean P.7 cm/sec Ao V2 mean: 2.0 mmHg MV E/A: 1.2 143.7 cm/sec LV V1 max: Ao mean P.0 cm/sec 10.0 mmHg LV V1 mean: Ao V2 VTI: 44.5 cm 69.2 cm/sec ADELE(I,D): 2.0 cm2 LV V1 VTI: 26.2 cm ADELE(V,D): 1.8 cm2 TV V2 max: PA V2 max: TR max allison: RAPsystole: 60.7 cm/sec 105.0 cm/sec 200.0 cm/sec 3.0 mmHg TV max P.5 mmHg PA max P.4 mmHg TR max P.0 mmHg RVSP(TR): 19.0 mmHg Electronically signed by: Chandni Red MD 01/21/2023 11:04 PM Dajuan Joe GRADUATE RECRUITER CV ECHO PROCEDURES Final Resu lt * TSH reflex to free T4 (11/29/2022 12:21 PM CDT) Pathologist [facility] TSH 1.26 0.40 - 4.50 mIU/L [facility] Blood 11/29/2022 12:2 1 PM CDT 11/29/2022 12:22 PM CDT Narrative [facility] - 11/30/2022 7:42 AM CDT FASTING:NO FASTING: NO Dajuan Joe NP LAB BLOOD ORDERABLES Final Re sult [facility] [address] [place] [address] * Comprehensive metabolic panel (11/29/2022 12:21 PM CDT) Glucose 81 65 - 139 mg/dL [facility] Comment: ? Non-fasting reference interval BUN 15 7 - 25 mg/dL [facility] Creatinine 0.74 0.50 - 1.05 mg/dL [facility] eGFR 92 > OR = 60 mL/min/1. 73m2 [facility] Comment: The eGFR is based on the CKD-EPI 2020 equation. To calculate the new eGFR from a previous Creatinine or Cystatin C result, go to https://www.kidney.org/professionals/ kdoqi/gfr%5Fcalculator BUN/creat ratio NOT APPLICABLE 6 - 22 (calc) [facility] Sodium 141 135 - 146 mmol/L [facility] Potassium, pl 4.3 3.5 - 5.3 mmol/L [facility] Chloride 104 98 - 110 mmol/L [facility] CO2 31 20 - 32 mmol/L [facility] Calcium 9.7 8.6 - 10.4 mg/dL [facility] Protein, sr 6.4 6.1 - 8.1 g/dL [facility] Albumin 4.2 3.6 - 5.1 g/dL [facility] GLOBULIN 2.2 1.9 - 3.7 g/dL (calc) [facility] Alb/glob ratio 1.9 1.0 - 2.5 (calc) [facility] Bilirubin, total 0.4 0.2 - 1.2 mg/dL [facility] Alk phos 44 37 - 153 U/L [facility] AST 16 10 - 35 U/L [facility] ALT (SGPT) 11 6 - 29 U/L [facility] Blood 11/29/2022 12:2 1 PM CDT 11/29/2022 12:22 PM CDT Narrative [facility] - 11/30/2022 7:42 AM CDT FASTING:NO FASTING: NO us Dajuan Joe GRADUATE RECRUITER LAB BLOOD ORDERABLES Final Re sult [facility] [address] [place] [address] * CBC with auto differential (11/29/2022 12:21 PM CDT) WBC 6.0 3.8 - 10.8 Thousand/u L [facility] RBC, POC 4.68 3.80 - 5.10 Million/uL [facility] Hgb 14.3 11.7 - 15.5 g/dL [facility] Hct 42.4 35.0 - 45.0 % [facility] MCV 90.6 80.0 - 100.0 fL [facility] MCH 30.6 27.0 - 33.0 pg [facility] MCHC 33.7 32.0 - 36.0 g/dL [facility] Rdw 11.8 11.0 - 15.0 % [facility] Platelets 267 140 - 400 Thousand/u L [facility] MPV 10.3 7.5 - 12.5 fL [facility] Neutrophils, abs 3,408 1,500 - 7,800 cells/uL [facility] Lymphocytes, abs 2,016 850 - 3,900 cells/uL [facility] Monocyte abs 480 200 - 950 cells/uL [facility] Eosinophils, abs 48 15 - 500 cells/uL [facility] Basophils, abs 48 0 - 200 cells/uL [facility] Neutrophils 56.8 % [facility] Lymphocyte pct 33.6 % [facility] Monocytes 8.0 % [facility] Eosinophils 0.8 % [facility] Basophils 0.8 % [facility] Blood 11/29/2022 12:2 1 PM CDT 11/29/2022 12:22 PM CDT Narrative [facility] - 11/30/2022 7:42 AM CDT FASTING:NO FASTING: NO us Dajuan Joe NP LAB BLOOD ORDERABLES Final Re sult [facility] [address] [facility] [place] [address] * ECG 12-LEAD (11/29/2022 8:59 AM CDT) Narrative Dajuan Joe NP - 11/29/2022 8:59 AM CDT Dajuan Joe NP ? 11/29/2022 ??9:02 AM ECG 12 lead Date/Time: 11/29/2022 8:59 AM Performed by: Dajuan Joe NP Authorized by: Dajuan Joe NP Comparison: not compared with previous ECG Previous ECG: no previous ECG available Rhythm: sinus rhythm Rate: normal QRS axis: normal Conduction: conduction normal ST Segments: ST segments normal T Waves: T waves normal Clinical impression: normal ECG us Dajuan Joe NP ECG ORDERABLES Final Result documented in this encounter Visit Diagnoses Diagnosis Palpitations- Primary Bicuspid aortic valve Congenital insufficiency of aortic valve Palpitations Palpitations documented in this encounter Care Teams Bridge Contractor Relationship Specialty Start Date End Date Estefany Lei MD [address] [place] [phone] PCP - General Internal Medicine 04/07/22 documented as of this encounter
--- OUTSIDE RECORDS SUMMARY | 2024-09-20 18:45 | XMS_ITS | Encounter Summary ---
Author Organization [facility] Address [address] [facility] [address] [place] [address] Care Team Providers Care Senior Software Developer Name Role Phone Estefany Lei MD Primary Care Provider Encounter Details Date Type Department Care Team (Late st Contact Info) Description 04/14/2022 Telephone [facility] Primary Care [address] [place] [address] [place] [phone] Estefany Lei MD [address] [place] [address] [place] [phone] Social History Tobacco Use Types Packs/Day [...] points, staff should administer the PHQ-9) 0 04/07/2022 Comments Unknown Sex and Gender Information Value Date Recorded Sex Assigned at Not on file 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 * Telephone Encounter - Ele Weeks MA - 04/14/2022 7:22 AM CDT ----- Message from Estefany Lei MD sent at 04/14/2022 7:22 AM CDT ----- Let patient know that her labs look great. documented in this encounter Plan of Treatment Not on file documented as of this encounter Visit Diagnoses Not on filedocumented in this encounter Care Teams Senior Software Developer Relationship Specialty Start Date End Date Estefany Lei MD [address] [place] [id number] PCP - General Internal Medicine 04/07/22 documented as of this encounter
--- OUTSIDE RECORDS SUMMARY | 2024-09-20 18:45 | XMS_ITS | Encounter Summary ---
Author Organization [facility] Address [address] [facility] [address] [place] [address] Care Team Providers Care Geothermal Heat Pump Machinist Name Role Phone Estefany Lei MD Primary Care Provider Reason for Referral * Consultation (Routine) - Closed Specialty Diagnoses / Procedures Referred By Contac t Referred To Contact Otolaryngology Diagnoses Oral lesion Estrellita Joe NP [address] [place] [address] Phone: tel: fax: Ramirez Gómez MD [address] [place] [address] Phone: tel: fax: Referral ID Status Reason Start Date Expiration Date V isits Requested Visits Authorized [id number] Closed Specialty Services Required 03/14/2023 04/12/2024 1 1 Question Answer Please select the performing region: External Order [171] To provider: RAMIREZ GÓMEZ [[id number]] # of visits: 1 Reason for Visit * Reason Comments Dysphagia Trouble swallowing a t times where food gets stuck, also has white spot in back of throat Encounter Details Date Type Department Care Team (Late st Contact Info) Description 03/14/2023 8:30 AM CDT Office Visit 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 Gender Identity Not on file Sexual Orientation Not on file documented as of this encounter Last Filed Vital Signs Vital Sign Reading Time Taken Comments Blood Pressure 104/72 03/14/2023 8:23 AM CDT Pulse 61 03/14/2023 8:23 AM CDT Temperature 36.7 ??C (98 ??F) 03/14/2023 8:23 AM CDT Respiratory Rate - - Oxygen Saturation 98% 03/14/2023 8:23 AM CDT Inhaled Oxygen Concentration - - Weight 54 kg (119 lb) 03/14/2023 8:23 AM CDT Height 154.9 cm (5' 1 ) 03/14/2023 8:23 AM CDT Body Mass Index 22.48 03/14/2023 8:23 AM CDT documented in this encounter Progress Notes * Estrellita Joe NP - 03/14/2023 8:30 AM CDT Images from the original note were not included. Patient ID: Shila Martinez is a 62 y.o. female. Chief Complaint. Chief Complaint Patient presents with Dysphagia Trouble swallowing at times where food gets stuck, also has white spot in back of throat HPI. Patient is a 62 y.o. female here to discuss oral issues. Oral complaint: Spot in back of the throat still there. Can usually express these areas. This one is not expressible. Salt water gargles, water pick, not causing any issues, not painful, not causing issues with swallowing. Maybe there since October. Palpitations: Noticed more last fall, have been [...] f/u 10 yrs; [place] Mammo: Aug 2021; [place] [facility] PAP: [facility]; pelvic last year, PAP 2019, new appt coming up. Dexa: wellness check [place] 3 yrs ago. Exercise: pickle ball 3 days per week, walking/biking. No weight training. - doing piliates 1x per week. Diet: Weight watchers. Vax: discussed the shingrix shot. Current Medications: Outpatient Encounter Medications as of 03/14/2023 Medication Sig Dispense Refill efinaconazole 10 % solution with applicator Apply 1 application topically daily 8 mL 3 magnesium gluconate 200 mg tablet 1 tablet (200 mg total) naproxen (ALEVE) 220 mg tablet Take by mouth 2 (two) times a day with meals spironolactone (ALDACTONE) 100 mg tablet Take 1 tablet (100 mg total) by mouth daily No facility-administered encounter medications on file as of 03/14/2023. BP 104/72 (BP Location: Right arm, Patient Position: Sitting) Pulse 61 Temp 36.7 ??C (98 ??F) (Temporal) Ht 154.9 cm (5' 1 ) Wt 54 kg (119 lb) SpO2 98% BMI 22.48 kg/m?? Physical Exam: Physical Exam HENT: Head: Normocephalic and atraumatic. Comments: White spot left posterior pharynx Cardiovascular: Rate and Rhythm: Normal rate and regular rhythm. Heart sounds: Normal heart sounds. No murmur heard. No friction rub. No gallop. Pulmonary: Effort: Pulmonary effort is normal. No respiratory distress. Breath sounds: Normal breath sounds. No wheezing or rales. Skin: General: Skin is warm and dry. Neurological: Mental Status: She is alert. Psychiatric: Behavior: Behavior normal. Thought Content: Thought content normal. Judgment: Judgment normal. Assessment & Plan: Diagnoses and all orders for this visit: Oral lesion (Primary) - Ambulatory referral to ENT; Future Since this area is not responding to current treatments. Will refer to ENT. Currently non-symptomatic, likely benign area. BMI Follow-up includes: education provided. Estrellita Joe NP documented in this encounter Plan of Treatment Scheduled Referrals Name Type Priority Associated Diagnoses Order Schedule Ambulatory referral to ENT Outpatient Referral Routine Oral lesion Expected: 03/14/2023 (Approximate), Expires: 03/14/2024 documented as of this encounter Visit Diagnoses Diagnosis Oral lesion- Primary Other and unspecified diseases of the oral soft tissues documented in this encounter Care Teams Geothermal Heat Pump Machinist Relationship Specialty Start Date End Date Estefany Lei MD [address] [place] [phone] PCP - General Internal Medicine 04/07/22 documented as of this encounter
--- OUTSIDE RECORDS SUMMARY | 2024-09-20 18:45 | XMS_ITS | Encounter Summary ---
Author Organization [facility] Healthcare Address [address] [place] [address] Care Team Providers Care K 9 Handler/ Deputy Name Role Phone Estefany Lei MD Primary Care Provider Encounter Details Date Type Department Care Team (Late st Contact Info) Description 08/18/2023 Telephone [facility] Primary Care [address] [phone] Estrellita Joe NP 1418 [facility] [address] [place] [address] Social History Tobacco Use Types Packs/Day [...] points, staff should administer the PHQ-9) 0 04/11/2023 Comments Unknown Sex and Gender Information Value Date Recorded Sex Assigned at Not on file 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 Is she set upwith someone already? If not can we get her with Dr. May. RVISOR EPOXY FABRICATION documented in this encounter Plan of Treatment Not on file documented as of this encounter Visit Diagnoses Not on filedocumented in this encounter Care Teams K 9 Handler/ Deputy Relationship Specialty Start Date End Date Estefany Lei MD [address] [place] [phone] PCP - General Internal Medicine 04/07/22 documented as of this encounter
--- OUTSIDE RECORDS SUMMARY | 2024-09-20 18:45 | XMS_ITS | Encounter Summary ---
Author Organization [facility] Address [address] [facility] [address] [place] [address] Care Team Providers Care Reel And Rewinder Operator Name Role Phone Estefany Lei MD Primary Care Provider Reason for Referral * Consultation (Routine) - Closed Specialty Diagnoses / Procedures Referred By Contac t Referred To Contact Cardiology Diagnoses Tachycardia Estefany Lei MD [address] [place] [address] [place] [address] Phone: tel: fax: Irving Bustillo MD [address] [address] Phone: tel: fax: Referral ID Status Reason Start Date Expiration Date V isits Requested Visits Authorized [id number] Closed Specialty Services Required 02/01/2023 03/02/2024 5 5 Question Answer Please select the performing region: External Order [171] To provider: IRVNIG BUSTILLO [[id number]] # of visits: 5 Reason for Visit * Reason Onset Date Comments Call Back 01/31/2023 Encounter Details Date Type Department Care Team (Late st Contact Info) Description 01/31/[address] 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 Bustillo's office. Please call her. She would like to call and make appt. Caller???s Call back #: [phone] Does message need to be routed? Yes-Action Needed * Addendum Note - Chuck Weeks MA - 02/01/2023 8:49 AM CDTAddended by: CHUCK WEEKS on: 02/01/2023 08:49 AM Modules accepted: Orders * Telephone Encounter - Chuck Weeks MA - 02/01/2023 8:49 AM CDT Referral has been placed. * Telephone Encounter - Terrell Bryan - 02/01/2023 8:39 AM CDT Call Back Caller???s Concern: spoke with patient she considered and would like referral sent to [facility] Cardiology group rIving Bustillo M.D. office [place] [address] [address] [facility] [address] [place] [address] Caller???s Call back #: [phone] Does message need to be routed? Yes-Action Needed * Telephone Encounter - Litzy Casillas MA - 01/31/2023 4:19 PM CDT Spoke with patient, reviewed results. Patient voiced understanding. She would like to think about it over night and she will call back. * Telephone Encounter - Litzy Casillas MA - 01/31/2023 4:19 PM CDT ----- Message from Estrellita Joe NP sent at 01/31/2023 10:46 AM CDT ----- Holter monitor reviewed. Looks like overall a normal rhythm with some premature beats, 1 9 beat runof SVT (high heart rate). Your symptoms correlated with the time you were having these premature beats and the tachycardia. We could try a beta elgin medication in a low dose to see if this helps with the symptoms or we have the option of referral to cardiology. Does the patient have a preference? documented in this encounter Plan of Treatment Scheduled Referrals Name Type Priority Associated Diagnoses Order Schedule Ambulatory referral to Cardiology Outpatient Referral Routine Tachycardia Expected: 02/15/2023 (Approximate), Expires: 02/02/2024 documented as of this encounter Visit Diagnoses Diagnosis Tachycardia- Primary Unspecified tachycardia documented in this encounter Care Teams Reel And Rewinder Operator Relationship Specialty Start Date End Date Estefany Lei MD [address] [place] [phone] PCP - General Internal Medicine 04/07/22 documented as of this encounter
--- OUTSIDE RECORDS SUMMARY | 2024-09-20 18:45 | XMS_ITS | Encounter Summary ---
Author Organization [facility] Address [address] [place] [address] Care Team Providers Care Director Software Development Name Role Phone Estefany Lei MD Primary Care Provider Reason for Referral * Cardiology (Routine) - Closed Specialty Diagnoses / Procedures Referred By Gissel latif Referred To Contact Diagnoses Palpitations Procedures 48 HR Holter Monitor Estrellita Joe NP [address] [place] [address] Phone: tel: fax: [address] [phone] Referral ID Status Reason Start Date Expiration Date Visits Re quested Visits Authorized [id number] Closed 11/29/2022 12/29/2023 1 1 Reason for Visit * Cardiology (Routine) - Closed Specialty Diagnoses / Procedures Referred By Gissel latif Referred To Contact Diagnoses Palpitations Procedures 48 HR Holter Monitor Estrellita Joe NP [address] [place] [address] Phone: tel: fax: [address] [phone] Referral ID Status Reason Start Date Expiration Date Visits Re quested Visits Authorized [id number] Closed 11/29/2022 12/29/2023 1 1 Encounter Details Date Type Department Care Team (Latest Contact Info) Description 01/20/2023 12:57 PM CDT - 01/20/2023 11:59 PM CDT Hospital Encounter [facility] Cardiac Testing [address] [place] [address] Palpitations Discharge Disposition: Discharge to home or self [...] on file Legal Sex Female 12:44 AM 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 FRAME 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 Gender Identity Not on file Sexual Orientation Not on file documented as of this encounter Medications at Time of Discharge efinaconazole 10 % solution with applicator Apply 1 application topically daily 8 mL 3 04/07/2022 naproxen (ALEVE) 220 mg tablet Take by mouth 2 (two) times a day with meals spironolactone (ALDACTONE) 100 mg tablet Take 1 tablet (100 mg total) by mouth daily magnesium gluconate 200 mg tabletIndication s:hypomagnesemia 1 tablet (200 mg total) 3 documented as of this encounter Discharge Disposition Disposition Code Departure Means Destination Discharge to home or self care documented in this encounter Plan of Treatment Not on file documented as of this encounter Procedures Procedure Name Priority Date/Time Associated Diagnosis Comments HOLTER MONITOR 48 HR Routine 01/20/2023 1:20 PM CDT Palpitations documented in this encounter Results [...] the PVCs and with sinus tachycardia. us Estrellita Joe NP [facility] CARDIAC SERVICES PROCEDURE S Final Result documented in this encounter Visit Diagnoses Diagnosis Palpitations documented in this encounter Care Teams Director Software Development Relationship Specialty Start Date End Date Estefany Lei MD [address] [place] [phone] PCP - General Internal Medicine 04/07/22 documented as of this encounter
--- OUTSIDE RECORDS SUMMARY | 2024-09-20 18:45 | XMS_ITS | Encounter Summary ---
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 Please advise. * Telephone Encounter - Mary Lou Delgado MA - 04/09/2022 3:30 PM CDT Patient opted for podiatry. Dr. King in [place] * Telephone Encounter - Estefany Lei MD - 04/09/2022 2:58 PM CDT We can refer to either derm or podiatry and see if they can assist with clearing area up? * Telephone Encounter - Mary Lou Delgado MA - 04/09/2022 2:54 PM CDT She had an allergic reaction to terbinafine. * Telephone Encounter - Estefany Lei MD - 04/08/2022 4:54 PM CDT Option would be to change to anti fungal oral medication for 12 wks and check liver function half way through * Telephone Encounter - Mary Lou Delgado MA - 04/08/2022 9:11 AM CDT efinaconazole topical solution not covered by insurance. documented in this encounter Plan of Treatment Not on file documented as of this encounter Visit Diagnoses Diagnosis Toenail fungus- Primary documented in this encounter Care Teams Probation Officer Relationship Specialty Start Date End Date Estefany Lei MD [address] [place] [phone] PCP - General Internal Medicine 04/07/22 documented as of this encounter
--- OUTSIDE RECORDS SUMMARY | 2024-09-20 18:45 | XMS_ITS | Encounter Summary ---
Author Organization [facility] Healthcare Address [address] [place] [address] Care Team Providers Care Instructional Systems Design Consultant Name Role Phone Estefany Lei MD Primary Care Provider Encounter Details Date Type Department Care Team (Late st Contact Info) Description 03/02/[address] 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 Gender Identity Not on file Sexual Orientation Not on file documented as of this encounter Plan of Treatment Not on file documented as of this encounter Procedures Procedure Name Priority Date/Time Associated Diagnosis Comments SCAN - RADIOLOGY/IMAGING 03/02/2024 documented in this encounter Results * SCAN - RADIOLOGY/IMAGING (03/02/2024) Anatomical Region Laterality Modality Other us Provider Scanning Final Result documented in this encounter Visit Diagnoses Not on filedocumented in this encounter Care Teams Instructional Systems Design Consultant Relationship Specialty Start Date End Date Estefany Lei MD [address] [place] [address] PCP - General Internal Medicine 04/07/22 documented as of this encounter
--- OUTSIDE RECORDS SUMMARY | 2024-09-20 18:45 | XMS_ITS | Encounter Summary ---
Author Organization [facility] Healthcare Address [address] [place] [address] Care Team Providers Care Sizing Machine Operator Name Role Phone Rebeca Lei MD Primary Care Provider Reason for Referral * Cardiology (Routine) - Closed Specialty Diagnoses / Procedures Referred By Gissel latif Referred To Contact Diagnoses Palpitations Procedures Transthoracic Echo (TTE) Complete W Doppler/CF Estrellita Joe NP [address] [place] [address] Phone: tel: fax: [address] [phone] Referral ID Status Reason Start Date Expiration Date Visits Re quested Visits Authorized [id number] Closed 01/04/2023 03/04/2023 1 1 Reason for Visit * Cardiology (Routine) - Closed Specialty Diagnoses / Procedures Referred By Contac t Referred To Contact Diagnoses Palpitations Procedures Transthoracic Echo (TTE) Complete W Doppler/CF Estrellita Joe NP [address] [place] [address] Phone: tel: fax: [address] [phone] Referral ID Status Reason Start Date Expiration Date Visits Re quested Visits Authorized [id number] Closed 01/04/2023 03/04/2023 1 1 Encounter Details Date Type Department Care Team (Latest Contact Info) Description 01/20/2023 12:57 PM CDT - 01/20/2023 11:59 PM CDT Hospital Encounter [facility] Cardiac Testing [address] [place] [address] Palpitations Discharge Disposition: Discharge to home or [...] on file Legal Sex Female 12:44 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 Adult Echocardiogram + ----- ---+ :Name: MICHELLE SHILA Queta ?Study Date: 01/20/2023 ?Status: MHE ?: : ?Patient Location: MHE CARD^^^MHEHeight: 61 in ?: : ?Weight: 121 lbBP: 124/84 mmHg: :: 1960 ? Gender: Female ?BSA: 1.5 m2 ?: :Reason For Study: palpitations ? : :Ordering Physician: ?: :ESTRELLITA JOE ? : :Referring Physician: ? : :REBECA LEI ? : :MONTSERRAT ?: :Performed By: [...] ? RVSP(TR): 19.0 mmHg Electronically signed by: Chadnni Red MD 01/21/2023 11:04 PM Procedure Note Chandni Red MD - 01/21/2023 Adult Echocardiogram + ----- ---+ :Name: SHILA MARTINEZ Study Date: 01/20/2023 Status: BORISE: : Patient Location: [facility]^^^MHEHeight: 61 in: : Weight: 121lbBP: 124/84 mmHg: :: 1960 Gender: Female BSA: 1.5 m2: :Reason For Study: palpitations: :Ordering Physician:: :ESTRELLITA JOE: :Referring Physician:: :REBECA LEI: :MONTSERRAT: :Performed By: Dena Dominguez,: :RDCS/RVT: + ----- ---+ Procedure A two-dimensional transthoracic [...] with an Aortic valve area of 2.0 ulf2ddid normal opening of the aortic valve on [...] by: Chandni Red MD 01/21/2023 11:04 PM us Estrellita Joe NP CV ECHO PROCEDURES Final Resu lt documented in this encounter Visit Diagnoses Diagnosis Palpitations documented in this encounter Care Teams Sizing Machine Operator Relationship Specialty Start Date End Date Rebeca Lei MD [address] [place] [phone] (Hmso) PCP - General Internal Medicine 04/07/22 documented as of this encounter
--- OUTSIDE RECORDS SUMMARY | 2024-09-20 18:45 | XMS_ITS | Encounter Summary ---
Author Organization [facility] Address [address] [place] [address] Phone Care Team Providers Care Cyber Crime Investigator Name Role Phone Estefany Lei MD Primary Care Provider Reason for Visit * Reason Comments Sore Throat Left side of throat lesion since 10/2022 * Consultation (Routine) - Closed Specialty Diagnoses / Procedures Referred By Gissel latif Referred To Contact Otolaryngology Diagnoses Oral lesion Estrellita Joe NP [facility] [address] [address] Phone: tel: fax: Cristino [place] [address] Phone: tel: fax: Referral ID Status Reason Start Date Expiration Date V isits Requested Visits Authorized [id number] Closed Specialty Services Required 03/14/2023 04/12/2024 1 1 Encounter Details Date Type Department Care Team (Late st Contact Info) Description 04/05/2023 11:00 AM CDT Office Visit [facility] [address] [place] [address] Cristino Gómez MD [address] [place] [address] Oral lesion Social History Tobacco Use Types Packs/Day Years [...] on file 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 female was seen in the office today. Primary care provider is Estefany Lei MD . Chief Complaint: Chief Complaint Patient presents with Sore Throat Left side of throat lesion since 10/2022 HPI: She comes to clinic today for evaluation of a lesion on the left side of her throat. She 1st noticed this in October. It never really goes away. She does have problems with tonsil stones that she is occasionally cleaning using a Q-tip. This does not budge however. It is also little farther back and hard to reach. It has no symptoms. It has not changed since she 1st noticed it.. I have reviewed past medical, surgical, family history as well as allergies and medications. Review of Systems Review of Systems Constitutional: Negative for chills, fever and unexpected weight change. HENT: Negative for drooling and facial swelling. Eyes: Negative for pain and discharge. Respiratory: Negative for wheezing and stridor. Cardiovascular: Negative for leg swelling. Gastrointestinal: Negative for diarrhea and vomiting. Endocrine: Negative for polydipsia. Genitourinary: Negative for flank pain. Musculoskeletal: Negative for myalgias. Skin: Negative for color change. Allergic/Immunologic: Negative for immunocompromised state. Neurological: Negative for tremors and seizures. Psychiatric/Behavioral: Negative for hallucinations and self-injury. Vital Signs: Resp 18 Ht 160 cm (5' 3 ) Wt 54.4 kg (120 lb) BMI 21.26 kg/m?? PHYSICAL EXAMINATION: GENERAL: Normal NEURO/PSYCH: Affect is normal. Alert and oriented. Extraocular muscles are intact. Cranial Nerves: Cranial nerves II-VII and IX-XII are intact and symmetric. HEAD/FACE: Normocephalic; atraumatic. No facial skin lesions. Facial strength is 5/5 and the face is symmetric. EARS : External ears have no skin lesions. Auricles are regularly set on the head. Hearing is grossly intact. Right: Normal canal. Tympanic membrane intact and mobile. Left: Normal canal. Tympanic membrane intact and mobile. NOSE: External nose has no skin lesions. Nasal dorsum is essentialy midline. Nasal septum is nonobstructive. Inferior and middle turbinates are normal size. No mucosal lesions or polyps are seen on either side. ORAL CAVITY/ OROPHARYNX: Skin of the lips is without lesions. Normal oral vestibule. Oral mucosa ismoist without lesions. Tongue and floor of mouth are without lesions or masses. Palate has no lesions and elevates symmetrically. Tonsils are negative. 3 mm mucocele in the left mid tonsil. Oropharynx is clear without erythema or exudate. NECK: Trachea is midline. Thyroid is normal in size with no apparent nodules. Larynx: Base of tongue is symmetric without masses. Epiglottis is normal without edema or mass lesions. Hypopharynx is clear of masses including the pyriform sinuses. The false and true vocal cords are clear of masses. True vocal cords are mobile bilaterally. No paralysis. Salivary Glands: The submandibular glands are non-tender without masses. The parotid glands are non-tender without edema or masses. There is clear saliva flow from Stensen's and [place]'s ducts bilaterally. LYMPHATIC: No cervical lymphadenopathy. MUSCULOSKELATAL: Ambulates without difficulty. Neck full range of motion. RESPIRATORY: Breathing comfortably without audible wheeze, stertor or stridor. PROCEDURE: ASSESSMENT & PLAN: Oral lesion This appears to be a small mucocele involving the left tonsil. I recommended no intervention. I reassured her that it is benign. If it changes significantly I have asked her to follow-up with me. Shila lal with that. Cristino Gómez MD documented in this encounter Miscellaneous Notes * Assessment & Plan Note - Cristino Gómez MD - 04/05/2023 12:52 PM CDT Associated Problem(s): Oral lesion This appears to be a small mucocele involving the left tonsil. I recommended no intervention. I reassured her that it is benign. If it changes significantly I have asked her to follow-up with me. Shila lal with that. documented in this encounter Plan of Treatment Not on file documented as of this encounter Visit Diagnoses Diagnosis Oral lesion Other and unspecified diseases of the oral soft tissues documented in this encounter Orders Outpatient Referral Count Last Ordered Date Fir st Ordered Date AMB REFERRAL TO ENT 1 04/05/2023 documented in this encounter Care Teams Cyber Crime Investigator Relationship Specialty Start Date End Date Estefany Lei MD [address] [place] [id number] PCP - General Internal Medicine 04/07/22 documented as of this encounter
--- OUTSIDE RECORDS SUMMARY | 2024-09-20 18:45 | XMS_ITS | Encounter Summary ---
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 Gender Identity Not on file Sexual Orientation Not on file documented as of this encounter Plan of Treatment Not on file documented as of this encounter Procedures Procedure Name Priority Date/Time Associated Diagnosis Comments SCAN - RADIOLOGY/IMAGING 09/01/2023 documented in this encounter Results * SCAN - RADIOLOGY/IMAGING (09/01/2023) Anatomical Region Laterality Modality Other us Provider Scanning Final Result documented in this encounter Visit Diagnoses Not on filedocumented in this encounter Care Teams High Rigger Relationship Specialty Start Date End Date Estefany Lei MD [address] [place] [id number] PCP - General Internal Medicine 04/07/22 documented as of this encounter
--- OUTSIDE RECORDS SUMMARY | 2024-09-20 18:45 | XMS_ITS | Encounter Summary ---
Author Organization [facility] Address [address] [facility] [address] [place] [phone] Care Team Providers Care Supervisor Paste Mixing Name Role Phone Estefany Lei MD Primary Care Provider Reason for Visit * Reason Comments Establish Care Encounter Details Date Type Department Care Team (Late st Contact Info) Description 04/07/2022 1:00 PM CDT Office Visit [facility] Primary Care [address] [place] [phone] Estefany Lei MD [address] [place] [phone] Encounter for general adult medical examination with abnormal findings (Primary Dx) Social History Tobacco Use Types [...] on file 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 Gender Identity Not on file Sexual Orientation Not on file documented as of this encounter Last Filed Vital Signs Vital Sign Reading Time Taken Comments Blood Pressure 124/74 04/07/2022 12:54 PM CDT Pulse 78 04/07/2022 12:54 PM CDT Temperature 36.8 ??C (98.3 ??F) 04/07/2022 12:54 PM C DT Respiratory Rate - - Oxygen Saturation 99% 04/07/2022 12:54 PM CDT Inhaled Oxygen Concentration - - Weight 52.6 kg (116 lb) 04/07/2022 12:54 PM CDT Height 154.9 cm (5' 1 ) 04/07/2022 12:54 PM CDT Body Mass Index 21.92 04/07/2022 12:54 PM CDT documented in this encounter Patient Instructions * Patient Instructions* Estefany Lei MD - 04/07/2022 1:00 PM CDT Diagnoses and all orders for this visit: Encounter for general adult medical examination with abnormal findings (Primary) Comments: checking fasting blood work, continue cardio and adding weights. check into the shingrix vaccine Orders: - CBC with auto differential; Future - Comprehensive metabolic panel; Future - Lipid panel; Future Other orders - efinaconazole 10 % solution with applicator; Apply 1 application topically daily documented in this encounter Ordered Prescriptions Prescription Sig Dispense Quantity Refills Last Filled Start Date End Date efinaconazole 10 % solution with applicator Apply 1 application topically daily 8 mL 3 04/07/2022 documented in this encounter Progress Notes * Estefany Lei MD - 04/07/2022 1:00 PM CDT Images from the original note were not included. Patient ID: Shila Martinez is a 62 y.o. female. Chief Complaint. Chief Complaint Patient presents with ??? Establish Care HPI. Patient is a 62 y.o. female HPI Toe nail fungus started in 2005 and has lost the nail. Has used jublia. Magnesium supplement taking magnesium. Muscle cramping. Taking aleve 1x per week; when working in the yard, has some arthritis. Taking spironolactone for adult acne. Seeing Dr. Castañeda. Bicuspid aortic valve; last echo over 10 yrs ago. Colon Aug 2014 f/u 10 yrs; [place] Mammo: Aug 2021; [facility] PAP: [facility]; pelvic last year, PAP 2019, new appt coming up. Dexa: wellness check [place] 3 yrs ago. Exercise: pickle ball 3 days per week, walking/biking. No weight training. - doing piliates 1x per week. Diet: Weight watchers. Vax: discussed the shingrix shot. 2 sons; History reviewed. No pertinent past medical history. Past Surgical History: Procedure Laterality Date ??? SECTION ??? TUBAL LIGATION Allergies Allergen Reactions ??? Penicillins ??? Terbinafine Other (See comments) Itching and abdominal pain Social History Tobacco Use ??? Smoking status: Never Smoker ??? Smokeless tobacco: None Substance and Sexual Activity ??? Drug use: None ??? Sexual activity: None Alcohol Use: Not At Risk ??? Frequency of Alcohol Consumption: Monthly or less ??? Average Number of Drinks: 1 or 2 ??? Frequency of Binge Drinking: Never Family History Problem Relation Age of Onset ??? Hypertension Mother ??? Obesity Mother ??? Skin cancer Mother ??? Coronary artery disease Father ??? Diabetes type II Father ??? Hypertension Father ??? Melanoma Sister Current Medications: Outpatient Encounter Medications as of 04/07/2022 Medication Sig Dispense Refill ??? magnesium gluconate 200 mg tablet 200 mg ??? naproxen (ALEVE) 220 mg tablet Take by mouth 2 (two) times a day with meals ??? spironolactone (ALDACTONE) 100 mg tablet Take 100 mg by mouth daily ??? efinaconazole 10 % solution with applicator Apply 1 application topically daily 8 mL 3 No facility-administered encounter medications on file as of 04/07/2022. Review of Systems: Review of Systems Constitutional: Negative for fatigue and fever. HENT: Negative for postnasal drip and rhinorrhea. Eyes: Negative for pain and redness. Respiratory: Negative for cough, shortness of breath and wheezing. Cardiovascular: Negative for chest pain, palpitations and leg swelling. Gastrointestinal: Negative for blood in stool, constipation, diarrhea, nausea and vomiting. Genitourinary: Negative for dysuria, frequency and hematuria. Skin: Negative for rash and wound. Neurological: Negative for dizziness, light-headedness and headaches. Psychiatric/Behavioral: Negative for dysphoric mood. The patient is not nervous/anxious. BP 124/74 (BP Location: Left arm, Patient Position: Sitting) Pulse 78 Temp 36.8 ??C (98.3 ??F) (Temporal) Ht 154.9 cm (5' 1 ) Wt 52.6 kg (116 lb) SpO2 99% BMI 21.92 kg/m?? Physical Exam: Physical Exam Constitutional: Appearance: [...] Diagnoses and all orders for this visit: Encounter for general adult medical examination with abnormal findings (Primary) Comments: checking fasting blood work, continue cardio and adding weights. check into the shingrix vaccine Orders: - CBC with auto differential; Future - Comprehensive metabolic panel; Future - Lipid panel; Future Other orders - efinaconazole 10 % solution with applicator; Apply 1 application topically daily BMI Follow-up includes: exercise counseling. Estefany Lei MD documented in this encounter Plan of Treatment Not on file documented as of this encounter Procedures Procedure Name Priority Date/Time Associated Diagnosis Comments CBC WITH AUTO DIFFERENTIAL Routine 04/13/2022 7:51 AM CDT Encounter for general adult medical examination with abnormal findings LIPID PANEL Routine 04/13/2022 7:51 AM CDT Encounter for general adult medical examination with abnormal findings COMPREHENSIVE METABOLIC PANEL Routine 04/13/2022 7:51 AM CDT Encounter for general adult medical examination with abnormal findings documented in this encounter Results * Lipid panel (04/13/2022 7:51 AM CDT) Pathologist [facility] Cholesterol 197 <200 mg/dL [facility] HDL 91 > OR = 50 mg/dL [facility] Triglycerides 57 <150 mg/dL [facility] LDL 92 mg/dL (calc) [facility] Comment: Reference range: <100 Desirable range <100 mg/dL for primary prevention; ?? <70 mg/dL for patients with CHD or diabetic patients with > or = 2 CHD risk factors. LDL-C is now calculated using the Arjun-B[place] calculation, which is a validated novel method providing better accuracy than the Friedewald equation in the estimation of LDL-C. Arjun YANG et al. YEHUDA. 2013;310(19): 7615-6186 (http://education.SupportPay.Stakeforce/faq/LCV310) Chol/HDL ratio 2.2 <5.0 (calc) [facility] Non-HDL, (LDL+VLDL) 106 <130 mg/dL (calc) [facility] Comment: For patients with diabetes plus 1 major ASCVD risk factor, treating to a non-HDL-C goal of <100 mg/dL (LDL-C of <70 mg/dL) is considered a therapeutic option. Blood specimen (specimen) 04/13/2022 7:51 AM CDT 04/13/2022 7:53 AM CDT Narrative [facility] - 04/14/2022 1:26 AM CDT FASTING:YES FASTING: YES us Estefany Lei MD LAB BLOOD ORD ERABLES Final Result [facility] [id number] [id number] * Comprehensive metabolic panel (04/13/2022 7:51 AM CDT) Glucose 86 65 - 99 mg/dL [facility] Comment: ? Fasting reference interval BUN 12 7 - 25 mg/dL [facility] Creatinine 0.64 0.50 - 1.05 mg/dL [facility] eGFR 100 > OR = 60 mL/min/1. 73m2 [facility] Comment: The eGFR is based on the CKD-EPI 2020 equation. To calculate the new eGFR from a previous Creatinine or Cystatin C result, go to https://www.kidney.org/professionals/ kdoqi/gfr%5Fcalculator BUN/creat ratio NOT APPLICABLE 6 - 22 (calc) [facility] Sodium 141 135 - 146 mmol/L [facility] Potassium, pl 4.3 3.5 - 5.3 mmol/L [facility] Chloride 103 98 - 110 mmol/L [facility] CO2 31 20 - 32 mmol/L [facility] Calcium 9.7 8.6 - 10.4 mg/dL [facility] Protein, sr 6.6 6.1 - 8.1 g/dL [facility] Albumin 4.3 3.6 - 5.1 g/dL [facility] GLOBULIN 2.3 1.9 - 3.7 g/dL (calc) [facility] Alb/glob ratio 1.9 1.0 - 2.5 (calc) [facility] Bilirubin, total 0.5 0.2 - 1.2 mg/dL [facility] Alk phos 54 37 - 153 U/L [facility] AST 18 10 - 35 U/L [facility] ALT (SGPT) 14 6 - 29 U/L [facility] Blood specimen (specimen) 04/13/2022 7:51 AM CDT 04/13/2022 7:53 AM CDT Narrative [facility] - 04/14/2022 1:26 AM CDT FASTING:YES FASTING: YES us Estefany Lei MD LAB BLOOD ORD ERABLES Final Result [facility] [id number] [id number] * CBC with auto differential (04/13/2022 7:51 AM CDT) WBC 4.6 3.8 - 10.8 Thousand/u L [facility] RBC, POC 4.75 3.80 - 5.10 Million/uL [facility] Hgb 14.7 11.7 - 15.5 g/dL [facility] Hct 43.7 35.0 - 45.0 % [facility] MCV 92.0 80.0 - 100.0 fL [facility] MCH 30.9 27.0 - 33.0 pg [facility] MCHC 33.6 32.0 - 36.0 g/dL [facility] Rdw 11.7 11.0 - 15.0 % [facility] Platelets 230 140 - 400 Thousand/u L [facility] MPV 10.7 7.5 - 12.5 fL [facility] Neutrophils, abs 2,355 1,500 - 7,800 cells/uL [facility] Lymphocytes, abs 1,104 850 - 3,900 cells/uL [facility] Monocyte abs 722 200 - 950 cells/uL [facility] Eosinophils, abs 350 15 - 500 cells/uL [facility] Basophils, abs 69 0 - 200 cells/uL [facility] Neutrophils 51.2 % [facility] Lymphocyte pct 24.0 % [facility] Monocytes 15.7 % [facility] Eosinophils 7.6 % [facility] Basophils 1.5 % [facility] Blood specimen (specimen) 04/13/2022 7:51 AM CDT 04/13/2022 7:53 AM CDT Narrative [facility] - 04/14/2022 1:26 AM CDT FASTING:YES FASTING: YES Estefany Lei MD LAB BLOOD ORD ERABLES Final Result [facility] [id number] [place] [phone] documented in this encounter Visit Diagnoses Diagnosis Encounter for general adult medical examination with abnormal findings- Primary documented in this encounter Historical Medications * This list may reflect changes made after this encounter. naproxen (ALEVE) 220 mg tablet Take by mouth 2 (two) times a day with meals spironolactone (ALDACTONE) 100 mg tablet Take 1 tablet (100 mg total) by mouth daily magnesium gluconate 200 mg tabletIndications :hypomagnesemia 1 tablet (200 mg total) 2023 added in this encounter Care Teams Supervisor Paste Mixing Relationship Specialty Start Date End Date Estefany Lei MD [address] [place] [id number] PCP - General Internal Medicine 04/07/22 documented as of this encounter
--- OUTSIDE RECORDS SUMMARY | 2024-09-20 18:45 | XMS_ITS | Encounter Summary ---
Author Organization [facility] Healthcare Address [address] [place] [address] Care Team Providers Care Sales/Marketing Name Role Phone Estefany Lei MD Primary Care Provider Reason for Visit * Reason Onset Date Comments Additional Services Or Orders 03/26/2024 Encounter Details Date Type Department Care Team (Late st Contact Info) Description 03/26/2024 Telephone [facility] Primary Care [address] [place] [phone] Estefany Lei MD [address] [place] [phone] Additional Services Or Orders Social History Tobacco Use Types Packs/Day Years [...] on file 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 Pt notified * Telephone Encounter - Estefany Lei MD - 03/26/2024 4:42 PM CDT Ok for cbc, cmp, lipid * Telephone Encounter - Nubia Bartholomew MA - 03/26/2024 2:05 PM CDT Additional Services or Orders Type of Service Requested:Labs Reason for Request (e.g. condition/symptom, date of COVID exposure if applicable): annual lab work Details Regarding Additional Services (e.g. type of home health, type of equipment, type of test, etc.): annual lab work Where will services be performed? (if outside of the practice, facility name, address, phone/fax offacility): [facility] Additional Comments: Patient has 7.30 appointment and would like to obtain labs prior. Please contact her when lab orders faxed to [facility] Does message need to be routed? Yes-Action Needed documented in this encounter Plan of Treatment Not on file documented as of this encounter Procedures Procedure Name Priority Date/Time Associated Diagnosis Comments CBC WITH AUTO DIFFERENTIAL Routine 04/10/2024 7:05 AM CDT Encounter for general adult medical examination with abnormal findings LIPID PANEL Routine 04/10/2024 7:05 AM CDT Encounter for general adult medical examination with abnormal findings COMPREHENSIVE METABOLIC PANEL Routine 04/10/2024 7:05 AM CDT Encounter for general adult medical examination with abnormal findings documented in this encounter Results * (ABNORMAL) Lipid panel (04/10/2024 7:05 AM CDT) Cholesterol 219(H) <200 mg/dL [facility] HDL 86 > OR = 50 mg/dL [facility] Triglycerides 59 <150 mg/dL [facility] LDL 118(H) mg/dL (calc) [facility] Comment: Reference range: <100 Desirable range <100 mg/dL for primary prevention; ?? <70 mg/dL for patients with CHD or diabetic patients with > or = 2 CHD risk factors. LDL-C is now calculated using the Fazal calculation, which is a validated novel method providing better accuracy than the Friedewald equation in the estimation of LDL-C. Arjun SS et al. YEHUDA. 2013;310(38): 2986-5433 (http://education.RatherGather/faq/WTH803) Chol/HDL ratio 2.5 <5.0 (calc) [facility] Non-HDL, (LDL+VLDL) 133(H) <130 mg/dL (calc) [facility] Comment: For patients with diabetes plus 1 major ASCVD risk factor, treating to a non-HDL-C goal of <100 mg/dL (LDL-C of <70 mg/dL) is considered a therapeutic option. Blood 04/10/2024 7:05 AM CDT 04/10/2024 7:06 AM CDT Narrative [facility] - 04/10/2024 5:14 PM CDT FASTING:YES FASTING: YES Estefany Lei MD LAB BLOOD ORD ERABLES Final Result [facility] [address] [place] [address] * (ABNORMAL) Comprehensive metabolic panel (04/10/2024 7:05 AM CDT) Pathologist [facility] Glucose 78 65 - 99 mg/dL [facility] Comment: ? Fasting reference interval BUN 13 7 - 25 mg/dL [facility] Creatinine 0.71 0.50 - 1.05 mg/dL [facility] eGFR 95 > OR = 60 mL/min/1.7 3m2 [facility] BUN/creat ratio SEE NOTE: 6 - 22 (calc) [facility] Comment: ?? Not Reported: BUN and Creatinine are within ?? reference range. ? Sodium 138 135 - 146 mmol/L [facility] Potassium, pl 4.1 3.5 - 5.3 mmol/L [facility] Chloride 103 98 - 110 mmol/L [facility] CO2 30 20 - 32 mmol/L [facility] Calcium 9.6 8.6 - 10.4 mg/dL [facility] Protein, sr 6.2 6.1 - 8.1 g/dL [facility] Albumin 4.4 3.6 - 5.1 g/dL [facility] GLOBULIN 1.8(L) 1.9 - 3.7 g/dL (calc) [facility] Alb/glob ratio 2.4 1.0 - 2.5 (calc) [facility] Bilirubin, total 0.6 0.2 - 1.2 mg/dL [facility] Alk phos 48 37 - 153 U/L [facility] AST 17 10 - 35 U/L [facility] ALT (SGPT) 13 6 - 29 U/L [facility] Blood 04/10/2024 7:05 AM CDT 04/10/2024 7:06 AM CDT Narrative [facility] - 04/10/2024 5:14 PM CDT FASTING:YES FASTING: YES us Estefany Lei MD LAB BLOOD ORD ERABLES Final Result [facility] [address] [place] [address] * CBC with auto differential (04/10/2024 7:05 AM CDT) WBC 4.6 3.8 - 10.8 Thousand/u L [facility] RBC, POC 4.69 3.80 - 5.10 Million/uL [facility] Hgb 14.6 11.7 - 15.5 g/dL [facility] Hct 45.0 35.0 - 45.0 % [facility] MCV 95.9 80.0 - 100.0 fL [facility] MCH 31.1 27.0 - 33.0 pg [facility] MCHC 32.4 32.0 - 36.0 g/dL [facility] Rdw 11.9 11.0 - 15.0 % [facility] Platelets 286 140 - 400 Thousand/u L [facility] MPV 10.9 7.5 - 12.5 fL [facility] Neutrophils, abs 2,401 1,500 - 7,800 cells/uL [facility] Lymphocytes, abs 1,601 850 - 3,900 cells/uL [facility] Monocyte abs 478 200 - 950 cells/uL [facility] Eosinophils, abs 78 15 - 500 cells/uL [facility] Basophils, abs 41 0 - 200 cells/uL [facility] Neutrophils 52.2 % [facility] Lymphocyte pct 34.8 % [facility] Monocytes 10.4 % [facility] Eosinophils 1.7 % [facility] Basophils 0.9 % [facility] Blood 04/10/2024 7:05 AM CDT 04/10/2024 7:06 AM CDT Narrative [facility] - 04/10/2024 5:14 PM CDT FASTING:YES FASTING: YES us Estefany Lei MD LAB BLOOD ORD ERABLES Final Result [facility] [address] [place] [address] documented in this encounter Visit Diagnoses Diagnosis Encounter for general adult medical examination with abnormal findings- Primary documented in this encounter Care Teams Sales/Marketing Relationship Specialty Start Date End Date Estefany Lei MD [address] [place] [address] PCP - General Internal Medicine 04/07/22 documented as of this encounter
--- OUTSIDE RECORDS SUMMARY | 2024-09-20 18:45 | XMS_ITS | Encounter Summary ---
Author Organization [facility] Address [address] [address] Care Team Providers Care Supervisor Winding Department Name Role Phone Estefany Lei MD Primary Care Provider Reason for Visit * Reason Comments New Patient Palpitations * Consultation (Routine) - Closed Specialty Diagnoses / Procedures Referred By Contac t Referred To Contact Cardiology Diagnoses Tachycardia Estefany Lei MD [address] [place] [address] Phone: tel: fax: Irving Bustillo MD [address] [address] Phone: tel: fax: Referral ID Status Reason Start Date Expiration Date V isits Requested Visits Authorized [id number] Closed Specialty Services Required 02/01/2023 03/02/2024 5 5 Encounter Details Date Type Department Care Team (Latest Contact Info) Description 2023 11:30 AM CDT Office Visit [facility] Cardiology at [address] [place] [address] Irving Bustillo MD [address] [facility] [address] [address] [address] Paroxysmal supraventricular tachycardia (CMS/HCC) (HCC) (Primary Dx); Tachycardia; Lipid screening Social History Tobacco Use Types Packs/Day [...] on file 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 Gender Identity Not on file Sexual Orientation Not on file documented as of this encounter Last Filed Vital Signs Vital Sign Reading Time Taken Comments Blood Pressure 120/74 2023 11:27 AM CDT Pulse 73 2023 11:27 AM CDT Temperature - - Respiratory Rate - - Oxygen Saturation 97% 2023 11:27 AM CDT Inhaled Oxygen Concentration - - Weight 54 kg (119 lb) 2023 11:27 AM CDT Height 160 cm (5' 3 ) 2023 11:27 AM CDT Body Mass Index 21.08 2023 11:27 AM CDT documented in this encounter Progress Notes * Irving Bustillo MD - 2023 11:30 AM CDT [facility] CARDIOLOGY 2023 CHIEF COMPLAINT Recently identified supraventricular tachycardia referred for consultation HPI Shila Martinez is a 63 y.o. female with supraventricular tachycardia recently identified/diagnosedon a Holter monitor study. Patient is referred for that reason for office consultation. The patientrecently was seen by the primary care provider and was reporting some episodes of palpitations. Shehad a echocardiogram performed as well as a Holter monitor. The echocardiogram in the monitor were done at [facility]. According to the report in the chart the echo shows some sclerosis of the aortic valve and a mi transvalvular gradient of about 10 mmHg. She according to the chart has a previous diagnosis of bicuspid aortic valve. The echo report indicates they are not able to definitively discern the number of leaflets that her valve has. The Holter monitor showed sinus rhythm with normal heart rate variability there was 1 episode of SVT that persisted for 9 beats. Because of this SVT and I suppose because of the echo findings who is referred to see me today. The patient states that she was told about 25 years ago that she had a soft heart murmur and based on an echocardiogram that she had a bicuspid aortic valve. Other than this she had no previous cardiac history she notices some occasional episodes of palpitations that will last either for a few moments or as long as a few minutes and then subside. She mentioned these episodes to her primary care physician and the workup that was described above was completed. She does not have any exertional symptoms such as dyspneachest pain orthopnea PND or edema she has never had a syncopal episode. 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 MEDICAL HISTORY History reviewed. No pertinent past medical history. Past Surgical History: Procedure Laterality Date SECTION TUBAL LIGATION Family History Problem Relation Age of Onset Hypertension Mother Obesity Mother Skin cancer Mother Coronary artery disease Father Diabetes type II Father Hypertension Father Melanoma Sister Social History Tobacco Use Smoking status: Never Smokeless tobacco: None Substance and Sexual Activity Drug use: None Sexual activity: None Alcohol Use: Not At Risk (04/07/2022) AUDIT-C Frequency of Alcohol Consumption: Monthly or less Average Number of Drinks: 1 or 2 Frequency of Binge Drinking: Never Current Outpatient Medications Medication efinaconazole 10 % solution with applicator magnesium gluconate 200 mg tablet naproxen (ALEVE) 220 mg tablet spironolactone (ALDACTONE) 100 mg tablet No current facility-administered medications for this visit. Allergies Allergen Reactions Penicillins Terbinafine Other (See comments) Itching and abdominal pain REVIEW OF SYSTEMS General ROS: negative for - chills, fatigue, fever, malaise, night sweats, weight gain or weight loss Psychological ROS: negative for - anxiety, depression, memory difficulties or sleep disturbances Ophthalmic ROS: negative for - blurry vision, decreased vision, loss of vision or scotomata ENT ROS: negative for - epistaxis, headaches, hearing change, nasal congestion, nasal discharge, sore throat, vertigo or visual changes Hematological and Lymphatic ROS: negative for - bleeding problems, blood clots, bruising, fatigue or weight loss Endocrine ROS: negative for - hot flashes, palpitations, polydipsia/polyuria or unexpected weight changes Respiratory ROS: negative for - cough, hemoptysis, orthopnea, shortness of breath, tachypnea or wheezing Cardiovascular ROS: negative for - chest pain, dyspnea on exertion, edema, irregular heartbeat, loss of consciousness, murmur, orthopnea, palpitations, paroxysmal nocturnal dyspnea, rapid heart rate or shortness of breath Gastrointestinal ROS: negative for - abdominal pain, appetite loss, blood in stools, constipation, diarrhea, gas/bloating, heartburn, hematemesis, melena or nausea/vomiting Genito-Urinary ROS: negative for - dysuria,or hematuria Musculoskeletal ROS: negative for - joint pain, muscle pain or muscular weakness Dermatological ROS: negative for dry skin, eczema, pruritus and rash LABS AND OTHER DIAGNOSTIC TESTS Lab Results Component Value Date WBC 6.0 11/29/2022 HGB 14.3 11/29/2022 HCT 42.4 11/29/2022 MCV 90.6 11/29/2022 No lab exists for component: LABALBU Lab Results Component Value Date CHOL 197 04/13/2022 Lab Results Component Value Date HDL 91 04/13/2022 No results found for: LDLCALC Lab Results Component Value Date TRIG 57 04/13/2022 Lab Results Component Value Date CHOLHDL 2.2 04/13/2022 PHYSICAL EXAM There were no vitals taken for this visit. General appearance - alert, well appearing, and in no distress, oriented to person, place, and timeand acyanotic, in no respiratory distress Mental status - affect appropriate to mood Eyes - extraocular eye movements intact, sclera anicteric, no pallor Ears - external earsappear normal, hearing grossly normal bilaterally Nose - normal and patent, no erythema or discharge Mouth - mucous membranes moist, pharynx appears normal, dental hygiene good and tongue normal Neck - supple, no significant neck masses, carotids upstroke normal bilaterally, no bruits, no JVD Chest - clear to auscultation, no wheezes, rales or rhonchi, symmetric air entry, no tachypnea, retractions or cyanosis Heart - normal rate, regular rhythm, normal S1, S2, very soft grade 2/6 early peaking crescendo decrescendo murmur at the right upper sternal border clicks or gallops, no JVD Abdomen - soft, nontender, nondistended, no masses or organomegaly bowel sounds normal Neurological - alert, oriented, normal speech, no focal findings or movement disorder noted Musculoskeletal - no joint tenderness, deformity or swelling, no muscular tenderness noted Extremities - peripheral pulses normal, no pedal edema, no clubbing or cyanosis Skin - normal coloration and turgor, no rashes, no suspicious skin lesions noted ASSESSMENT Likely bicuspid aortic valve with no significant stenosis based on recent echocardiographic findings Episodes of SVT likely brief episodes of AV node reentry that are resulting in symptoms of palpitations. She has cut down on caffeine with improvement of this. At this point she would like to avoid any medication to suppress the arrhythmia unless it is clearly necessary. I told her at this point this is something that can be followed conservatively and we can see her in a p.r.n. fashion if she has more problems with this arrhythmia I would be happy to see her and discuss treatment options we discussed today in the office conservative measures, more aggressive antiarrhythmic agents as well as ablation. I would agree with Dr. Lei at this point that if I was going to treat this with anything it would likely be either a beta-elgin or a calcium antagonist. The patient is preferring conservative observation at this time which is fine PLAN/RECOMMENDATIONS I will see the patient as needed if she has worsening in her symptomatology and wishes to consider medical antiarrhythmic therapy Irving Bustillo MD documented in this encounter Miscellaneous Notes * Addendum Note - Katrina Romero MA - 2023 11:30 AM CDTAddended by: KATRINA ROMERO on: 2023 12:21 PM Modules accepted: Orders documented in this encounter Plan of Treatment Not on file documented as of this encounter Procedures Procedure Name Priority Date/Time Associated Diagnosis Comments POCT LIPID PANEL Routine 2023 11:2 3 AM CDT Lipid screening ECG 12-LEAD Routine 2023 Tachycardia Paroxysmal supraventricular tachycardia (CMS/HCC) (HCC) documented in this encounter Results * POCT lipid panel (2023 11:23 AM CDT) Cholesterol, POC 208 mg/dL HDL, POC 90 mg/dL Triglycerides, POC <45 mg/dL LDL Cholesterol POC 105 mg/dL Chol/HDL Ratio, POC 2.3 Non-HDL Cholesterol, POC 118 mg/dL Cholesterol Total, POC 208 mg/dL Capillary blood 2023 1 1:23 AM CDT Irving Bustillo MD POINT OF CARE TEST ORDER BAKARI Final Result * ECG 12 lead (2023) Irving Bustillo MD ECG ORDERABLES Final Re sult documented in this encounter Visit Diagnoses Diagnosis Paroxysmal supraventricular tachycardia (HCC)- Primary Paroxysmal supraventricular tachycardia Tachycardia Unspecified tachycardia Lipid screening Screening for lipoid disorders documented in this encounter Discontinued Medications Medication Sig Discontinue Reason Start Date End Da te magnesium gluconate 200 mg tabletIndications:hypo magnesemia 1 tablet (200 mg total) Discontinued by another clinician 2023 documented as of this encounter Historical Medications * This list may reflect changes made after this encounter. magnesium oxide 400 mg magnesium capsule Take 800 mg by mouth daily added in this encounter Orders Outpatient Referral Count Last Ordered Date Fir st Ordered Date AMB REFERRAL TO CARDIOLOGY 1 2023 documented in this encounter Care Teams Supervisor Winding Department Relationship Specialty Start Date End Date Estefany Lei MD [address] [place] [phone] PCP - General Internal Medicine 04/07/22 documented as of this encounter
--- OUTSIDE RECORDS SUMMARY | 2024-09-20 18:45 | XMS_ITS | Encounter Summary ---
Author Organization [facility] Address [address] [facility] [address] [place] [address] Care Team Providers Care Citizenship Instructor Name Role Phone Estefany Lei MD Primary Care Provider Reason for Visit * Reason Comments Preventative Care Encounter Details Date Type Department Care Team (Latest Contact Info) Description 04/11/2023 3:30 PM CDT Office Visit [facility] Primary Care [address] [place] [phone] Estefany Lei MD [address] [place] [address] Encounter for general adult medical examination with abnormal findings (Primary Dx); Paroxysmal supraventricular tachycardia (CMS/HCC) (HCC) Social History Tobacco Use Types Packs/Day Years [...] on file 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 Gender Identity Not on file Sexual Orientation Not on file documented as of this encounter Last Filed Vital Signs Vital Sign Reading Time Taken Comments Blood Pressure 122/66 04/11/2023 3:18 PM CDT Pulse 69 04/11/2023 3:18 PM CDT Temperature 36.6 ??C (97.8 ??F) 04/11/2023 3:18 PM CD T Respiratory Rate - - Oxygen Saturation 97% 04/11/2023 3:18 PM CDT Inhaled Oxygen Concentration - - Weight 54.9 kg (121 lb) 04/11/2023 3:18 PM CDT Height 157.5 cm (5' 2 ) 04/11/2023 3:18 PM CDT Body Mass Index 22.13 04/11/2023 3:18 PM CDT documented in this encounter Patient Instructions * Patient Instructions* Estefany Lei MD - 04/11/2023 3:30 PM CDT Diagnoses and all orders for this visit: Encounter for general adult medical examination with abnormal findings (Primary) Comments: I would recommend Multivitamin Woman One a day and vit D3 5301-7198 IU. keep up the healthy diet and exercise Paroxysmal supraventricular tachycardia (CMS/HCC) (HCC) Comments: controlled currently documented in this encounter Progress Notes * Estefany Lei MD - 04/11/2023 3:30 PM CDT Images from the original note were not included. Patient ID: Shila Martinez is a 63 y.o. female. Chief Complaint. Chief Complaint Patient presents with Preventative Care HPI. Patient is a 63 y.o. female HPI 63 yo here for yearly px and f/u. Toe nail fungus started in 2005 and has lost the nail. Has used jublia. - laser treatment doing well; growing out. Going every 2.5 months. - Dr. Lange in [place]. 800$ per year. Magnesium supplement taking magnesium. Muscle cramping. Taking aleve 1x per week; when working in the yard, has some arthritis. Taking spironolactone for adult acne. Seeing Dr. Castañeda. Bicuspid aortic valve; 01/21/23 f/u in 2 yrs. - was seeing cardiology, cut back on metoprolol and was feeling better. Oral lesion: call cyst and told don't do anything. Colon Aug 2014 f/u 10 yrs; [place] Mammo: Sep 02, 2022; [place] PAP: [facility]; pelvic last year, PAP 2019, Dr. Maldonado. Dexa: wellness check [place] 3 yrs ago. Exercise: pickle ball 3 days per week, walking/biking. No weight training. - doing piliates 1x per week. Diet: Weight watchers. Vax: discussed the shingrix shot. 2 sons; Past Medical History: Diagnosis Date Heart disease Past Surgical History: Procedure Laterality Date SECTION TUBAL LIGATION VULVA SURGERY Allergies Allergen Reactions Penicillins Terbinafine Other (See comments) Itching and abdominal pain Social History Tobacco Use Smoking status: Former Types: Cigarettes Smokeless tobacco: Never Substance and Sexual Activity Drug use: Yes Types: Alcohol Sexual activity: None Alcohol Use: Not At Risk (04/07/2022) AUDIT-C Frequency of Alcohol Consumption: Monthly or less Average Number of Drinks: 1 or 2 Frequency of Binge Drinking: Never Family History Problem Relation Age of Onset Hypertension Mother Obesity Mother Skin cancer Mother Coronary artery disease Father Diabetes type II Father Hypertension Father Melanoma Sister Current Medications: Outpatient Encounter Medications as of 04/11/2023 Medication Sig Dispense Refill magnesium oxide 400 mg magnesium capsule Take 800 mg by mouth daily naproxen (ALEVE) 220 mg tablet Take by mouth 2 (two) times a day with meals spironolactone (ALDACTONE) 100 mg tablet Take 1 tablet (100 mg total) by mouth daily efinaconazole 10 % solution with applicator Apply 1 application topically daily (Patient not taking: Reported on 04/05/2023) 8 mL 3 No facility-administered encounter medications on file as of 04/11/2023. Review of Systems: Review of Systems Constitutional: Negative for fatigue and fever. HENT: Negative for postnasal drip and rhinorrhea. Eyes: Negative for pain and redness. Respiratory: Negative for cough, shortness of breath and wheezing. Cardiovascular: Negative for chest pain and leg swelling. Gastrointestinal: Negative for blood in stool, constipation, diarrhea, nausea and vomiting. Genitourinary: Negative for dysuria, frequency and hematuria. Skin: Negative for rash and wound. Neurological: Negative for dizziness, light-headedness and headaches. Psychiatric/Behavioral: Negative for dysphoric mood. The patient is not nervous/anxious. BP 122/66 (BP Location: Right arm, Patient Position: Sitting) Pulse 69 Temp 36.6 ??C (97.8 ??F)(Temporal) Ht 157.5 cm (5' 2 ) Wt 54.9 kg (121 lb) SpO2 97% BMI 22.13 kg/m?? Physical Exam: Physical Exam Constitutional: Appearance: [...] medical examination with abnormal findings (Primary) Comments: I would recommend Multivitamin Woman One a day and vit D3 1028-7654 IU. keep up the healthy diet and exercise Paroxysmal supraventricular tachycardia (CMS/HCC) (HCC) Comments: controlled currently BMI Follow-up includes: exercise counseling. Estefany Lei MD documented in this encounter Plan of Treatment Not on file documented as of this encounter Visit Diagnoses Diagnosis Encounter for general adult medical examination with abnormal findings- Primary Paroxysmal supraventricular tachycardia (HCC) Paroxysmal supraventricular tachycardia documented in this encounter Care Teams Citizenship Instructor Relationship Specialty Start Date End Date Estefany Lei MD [address] [place] [phone] PCP - General Internal Medicine 04/07/22 documented as of this encounter
--- OUTSIDE RECORDS SUMMARY | 2024-09-20 18:45 | XMS_ITS | Encounter Summary ---
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 Gender Identity Not on file Sexual Orientation Not on file documented as of this encounter Plan of Treatment Not on file documented as of this encounter Procedures Procedure Name Priority Date/Time Associated Diagnosis Comments SCAN - RADIOLOGY/IMAGING 08/17/2023 documented in this encounter Results * SCAN - RADIOLOGY/IMAGING (08/17/2023) Anatomical Region Laterality Modality Other us Provider Scanning Final Result documented in this encounter Visit Diagnoses Not on filedocumented in this encounter Care Teams Steel Pan Form Placing Supervisor Relationship Specialty Start Date End Date sEtefany Lei MD [address] [place] [phone] PCP - General Internal Medicine 04/07/22 documented as of this encounter
--- OUTSIDE RECORDS SUMMARY | 2024-09-20 18:45 | XMS_ITS | Encounter Summary ---
Author Organization [facility] Healthcare Address [address] [place] [address] Care Team Providers Care Paper Machine Back Tender Name Role Phone Unavailable Primary Care Provider Unavailabl e Encounter Details Date Type Department Care Team (Late st Contact Info) Description 07/31/2016 1:24 PM COMMUNITY EDUCATOR - 07/31/2016 2:45 PM COMMUNITY EDUCATOR Hospital Encounter [facility] Dominic Desir MD [address] [place] [address] Other specified injuries of head, initial encounter; Acute post-traumatic headache, not intractable; Fall on same level due to ice and snow, initial encounter; Activity involving ice skating; Ice skating rink as place of occurrence of external cause; External cause status Social History Tobacco Use Types Packs/Day Years Used Date Smoking Tobacco: Never Assessed Comments Unknown Sex and Gender Information Value Date Recorded Sex Assigned at Not on file 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
== END 2024-09-13 08:36 | disposition home or self-care (01) ==
LOC: ANHIMG 08:35
PROVIDERS: PCP Internal Medicine; Visit Provider Obstetrics & Gynecology
DX: Z12.31 Encounter for screening mammogram for malignant neoplasm of breast (principal)
CPT/HCPCS: 77063; 77067

== ENCOUNTER 2025-01-24 08:45 | Outpatient (NON) | payer BC, SELFPAY ==
--- OUTSIDE RECORDS SUMMARY | 2025-01-25 08:49 | XMS_ITS | Clinical Summary ---
Author Organization [facility] [employer] Address [address] [place] [address] Care Team Providers Care Financial Services Counselor Name Role Phone Unavailable Primary Care Provider Unavailabl e Source Comments [facility] [employer],non-owned Affiliates and Associated Physician Practices is amultiple site organization consisting of ambulatory clinics and hospital sitesin [place], [place], [place] and [place]. This disclosure is being madepursuant to the Care Everywhere program and may not contain all information available regarding this patient. Last updated 18.[facility] [employer] Allergies Active Allergy Reactions Criticality Noted Date Comments Terbinafine Other 06/21/2021 Itching and abdominal pain Penicillins Rash Medium 07/10/2019 Immunizations Immunization Administration Dates Next Due INFLUENZA VACCINE, QUADR. (F LUZONE; FLULAVAL; FLUARIX; AFLURIA QUADRIVALENT; 6MO+), 0.5 ML (IIV4) 06/21/2021,06/30/2020,07/10/2019 Social History Tobacco Use Types Packs/Day Years Used Date Smoking Tobacco: Never Assessed Comments Unknown Sex and Gender Information Value Date Recorded Sex Assigned at Not on file Legal Sex Female 2:10 PM CDT Gender Identity Not on file Sexual Orientation [...] SCREENING 1960 LIPID TESTING 1960 MAMMOGRAM 1961 HIV SCREENING 1976 HEPATITIS C SCREENING 03/19/1979 DTAP/TDAP/TD VACCINES (1 - Tdap) 1980 PNEUMOCOCCAL VACCINE 50+ (1 of 1 - PCV) 2011 ZOSTER VACCINE (1 of 2) 2011 COVID-19 VACCINE (3 - 2023-2 5 season) 2024 12/19/2020, 11/21/2020 DEPRESSION SCREENING 09/19/2024 INFLUENZA VACCINE (Season Ended) 2025 06/21/2021, 06/30/2020, 07/10/2019 Respiratory Syncytial Virus (RSV) Vaccine Pt: or [...] patient's age to complete this topic MENINGOCOCCAL (Group B) VACCINE SHARED DECISION-MAKING Aged Out No longer eligible based on patient's age to complete this topic MENINGOCOCCAL GROUPS A/C/Y/W VACCINE Aged Out No longer eligible b ased on patient's age to complete this topic Insurance [employer]
--- OUTSIDE RECORDS SUMMARY | 2025-01-25 08:49 | XMS_ITS | Referral Summary ---
Author Organization [facility] Address [address] [place] [address] Care Team Providers Care Button Grader Name Role Phone Estefany Lei MD Primary [...] with that. 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 Gender Identity Not on file Sexual Orientation Not on file Last Filed Vital Signs Vital Sign Reading Time Taken Comments Blood Pressure 125/86 08/27/2024 9:18 AM WINDOW ASSEMBLER Pulse 68 08/27/2024 9:18 AM WINDOW ASSEMBLER Temperature 36.4 C (97.6 F) 08/27/2024 8:55 AM WINDOW ASSEMBLER Respiratory Rate 14 08/27/2024 9:18 AM WINDOW ASSEMBLER Oxygen Saturation 99% 08/27/2024 9:18 AM WINDOW ASSEMBLER Inhaled Oxygen Concentration - - Weight 52.2 kg (115 lb) 08/27/2024 7:29 AM WINDOW ASSEMBLER Height 157.5 cm (5' 2 ) 04/17/2024 8:24 AM CDT Body Mass Index 21.03 04/17/2024 8:24 AM CDT Plan of Treatment Not on file Procedures Procedure Name Priority Date/Time Associated Diagnosis Comments COLONOSCOPY 08/27/2024 8:30 AM WINDOW ASSEMBLER SCREENING MAMMOGRAM Schedule Routine, Read Routine (OP Routine) 09/02/2022 HM PAP SMEAR WITH HPV Routine 01/11/2020 from Last 3 Months or Most Recently Relevant to Health Maintenance Results * Colonoscopy (08/27/2024 8:30 AM WINDOW ASSEMBLER) Anatomical Region Laterality Modality Other Narrative Procedure Note Kilo Johnson MD - 08/27/2024 8:30 AM CST [facility] GI ENDOSCOPY Patient Name: Shila Martinez Procedure Date: 08/27/2024 8:30 AM Date of : 1960 Admit Type: Outpatient Age: 64 Gender: Female Attending MD: Kilo Johnson M.D. Room: [facility] ENDOSCOPY ROOM 06 Note Status: Finalized Procedure: Colonoscopy Indications: Screening for colorectal malignant neoplasm Referring MD: Providers: iKlo Johnson M.D. Medicines: Monitored Anesthesia Care Complications: [...] On: 08/27/2024 8:30 AM Recognized by the [place] [employer] for Gastrointestinal Endoscopy for promoting quality in endoscopy Kilo Johnson MD ENDOSCOPY PROCEDURES Final Resul t * Screening Mammogram (09/02/2022) Anatomical Region Laterality Modality Breast N/A Mammography 09/02/2022 Historical Provider IMG MAMMO PROCEDURES Ayaka l Result * HM PAP SMEAR WITH HPV (01/11/2020) 01/11/2020 Historical Provider HEALTH MAINTENANCE Final Result from Last 3 Months or Most Recently Relevant to Health Maintenance [place] Subscriber Plan / Payer (Ef fective 2022-Present) Name:Shila Martinez Tone Relation to Subscriber:Self Name:Shila Martinez Tone Payer ID:[id number] (NAIC) Type:HEALTHCARE/EXCHANGE Address: [address] [phone] Care Teams Button Grader Relationship Specialty Start Date End Date Estefany Lei MD [address] [place] [phone] PCP - General Internal Medicine 04/07/22
--- OUTSIDE RECORDS SUMMARY | 2025-01-25 08:49 | XMS_ITS | Clinical Summary ---
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 Gender Identity Not on file Sexual Orientation Not on file Obstetrics History Last Filed Vital Signs Vital Sign Reading Time Taken Comments Blood Pressure 125/86 08/27/2024 9:18 AM WELDING EQUIPMENT SALES REPRESENTATIVE Pulse 68 08/27/2024 9:18 AM WELDING EQUIPMENT SALES REPRESENTATIVE Temperature 36.4 C (97.6 F) 08/27/2024 8:55 AM WELDING EQUIPMENT SALES REPRESENTATIVE Respiratory Rate 14 08/27/2024 9:18 AM WELDING EQUIPMENT SALES REPRESENTATIVE Oxygen Saturation 99% 08/27/2024 9:18 AM WELDING EQUIPMENT SALES REPRESENTATIVE Inhaled Oxygen Concentration - - Weight 52.2 kg (115 lb) 08/27/2024 7:29 AM WELDING EQUIPMENT SALES REPRESENTATIVE Height 157.5 cm (5' 2 ) 04/17/2024 [...] Associated Diagnosis Comments COLONOSCOPY 08/27/2024 8:30 AM WELDING EQUIPMENT SALES REPRESENTATIVE SCREENING MAMMOGRAM Schedule Routine, Read Routine (OP Routine) 09/02/2022 HM PAP SMEAR WITH HPV Routine 01/11/2020 from Last 3 Months or Most Recently Relevant to Health Maintenance Results * Colonoscopy (08/27/2024 8:30 AM WELDING EQUIPMENT SALES REPRESENTATIVE) Anatomical Region Laterality Modality Other Narrative Procedure Note Kilo Johnson MD - 08/27/2024 8:30 AM CST [facility] GI ENDOSCOPY Patient Name: Shila Carrillo Procedure Date: 08/27/2024 8:30 AM Date of : 1960 Admit Type: Outpatient Age: 64 Gender: Female Attending MD: Kilo Johnson M.D. Room: [facility] ENDOSCOPY ROOM 06 Note Status: [...] On: 08/27/2024 8:30 AM Recognized by the [employer] Society for Gastrointestinal Endoscopy for promoting quality [...] [place] Care Teams Family Preservation Caseworker Relationship Specialty Start Date End Date Estefany Lei MD [address] [place] [phone] PCP - General Internal Medicine 04/07/22
== END 2025-01-24 08:46 | disposition home or self-care (01) ==
LOC: ANHLAB 01-25 08:46
PROVIDERS: PCP Internal Medicine; Visit Provider Plastic Surgery
DX: C44.92 Squamous cell carcinoma of skin, unspecified (principal)
CPT/HCPCS: 88305

== ENCOUNTER 2025-03-07 19:00 | Emergency (ER) | payer BC, SELFPAY ==
--- NOTE | ~2025-03-07 | XR_ITS ---
CHEST RADIOGRAPH CLINICAL HISTORY: chest pain . COMPARISON: 10/2021 TECHNIQUE: Single portable view of the chest. FINDINGS The cardiomediastinal silhouette is unremarkable. The lungs are clear. IMPRESSION: No focal infiltrate or effusion. Reviewed, dictated and finalized at location A.
--- OUTSIDE RECORDS SUMMARY | 2025-03-07 19:02 | XMS_ITS | Referral Summary ---
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 Gender Identity Not on file Sexual Orientation Not on file Last Filed Vital Signs Vital Sign Reading Time Taken Comments Blood Pressure 125/86 08/27/2024 9:18 AM REAL ESTATE ASSOCIATE Pulse 68 08/27/2024 9:18 AM REAL ESTATE ASSOCIATE Temperature 36.4 C (97.6 F) 08/27/2024 8:55 AM REAL ESTATE ASSOCIATE Respiratory Rate 14 08/27/2024 9:18 AM REAL ESTATE ASSOCIATE Oxygen Saturation 99% 08/27/2024 9:18 AM REAL ESTATE ASSOCIATE Inhaled Oxygen Concentration - - Weight 52.2 kg (115 lb) 08/27/2024 7:29 AM REAL ESTATE ASSOCIATE Height 157.5 cm (5' 2) 04/17/2024 8:24 AM CDT Body Mass Index 21.03 04/17/2024 8:24 AM CDT Plan of Treatment Not on file Procedures Procedure Name Priority Date/Time Associated Diagnosis Comments COLONOSCOPY 08/27/2024 8:30 AM REAL ESTATE ASSOCIATE SCREENING MAMMOGRAM Schedule Routine, Read Routine (OP Routine) 09/02/2022 HM PAP SMEAR WITH HPV Routine 01/11/2020 from Last 3 Months or Most Recently Relevant to Health Maintenance Results * Colonoscopy (08/27/2024 8:30 AM REAL ESTATE ASSOCIATE) Anatomical Region Laterality Modality Other Narrative Procedure Note Kilo Johnson MD - 08/27/2024 8:30 AM CST [facility] GI ENDOSCOPY Patient Name: Shila Martinez Procedure Date: 08/27/2024 8:30 AM Date of : 1960 Admit Type: Outpatient Age: 64 Gender: Female Attending MD: Kilo Johnson M.D. Room: [facility] ENDOSCOPY ROOM 06 Note Status: [...] On: 08/27/2024 8:30 AM Recognized by the [place] Society for Gastrointestinal Endoscopy for promoting quality [...] Tone Payer ID:[id number] (NAIC) Type:HEALTHCARE/EXCHANGE Address: [address] [address] [phone] Care Teams Director Telecommunications Relationship Specialty Start Date End Date Estefany Lei MD [address] [place] [phone] PCP - General Internal Medicine 04/07/22
--- OUTSIDE RECORDS SUMMARY | 2025-03-07 19:02 | XMS_ITS | Clinical Summary ---
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 Gender Identity Not on file Sexual Orientation Not on file Obstetrics History Last Filed Vital Signs Vital Sign Reading Time Taken Comments Blood Pressure 125/86 08/27/2024 9:18 AM COVER MAT MACHINE OPERATOR Pulse 68 08/27/2024 9:18 AM COVER MAT MACHINE OPERATOR Temperature 36.4 C (97.6 F) 08/27/2024 8:55 AM COVER MAT MACHINE OPERATOR Respiratory Rate 14 08/27/2024 9:18 AM COVER MAT MACHINE OPERATOR Oxygen Saturation 99% 08/27/2024 9:18 AM COVER MAT MACHINE OPERATOR Inhaled Oxygen Concentration - - Weight 52.2 kg (115 lb) 08/27/2024 7:29 AM COVER MAT MACHINE OPERATOR Height 157.5 cm (5' 2) 04/17/2024 8:24 AM CDT Body Mass Index 21.03 04/17/2024 8:24 AM CDT Plan of Treatment Health Maintenance Due Date Last Done Comments Hepatitis C Screening 1960 DTaP/Tdap/Td Vaccine (1 - Tdap) 1972 Hepatitis B Screening 1979 Breast Cancer Screening-Mammogram 09/02/2023 09/02/2022, 08/24/2021 Covid-19 Vaccine ( season) 2024 07/04/2022, 02/06/2022, 07/28/2021, Additional history exists Cervical Cancer Screening 01/10/2025 01/11/2020 Depression Screening 04/17/2025 04/17/2024, 04/11/2023, 03/14/2023, Additional history exists Regular Well Visit/Exam 18-64 04/17/2025 04/17/2024, 04/11/2023, 04/07/2022 Influenza Vaccine (Season Ended) 2025 07/11/2023, 08/03/2022, 06/21/2021, Additional history exists Colon Cancer Screening-Colonoscopy 08/27/2029 08/27/2024, 08/22/2014 Pneumococcal vaccine <65 Aged Out 05/01/2021 No longer eligible based on patient's age to complete this topic Zoster Vaccine Completed 06/13/2022, 04/11/2022 Procedures Procedure Name Priority Date/Time Associated Diagnosis Comments COLONOSCOPY 08/27/2024 8:30 AM COVER MAT MACHINE OPERATOR SCREENING MAMMOGRAM Schedule Routine, Read Routine (OP Routine) 09/02/2022 HM PAP SMEAR WITH HPV Routine 01/11/2020 from Last 3 Months or Most Recently Relevant to Health Maintenance Results * Colonoscopy (08/27/2024 8:30 AM COVER MAT MACHINE OPERATOR) Anatomical Region Laterality Modality Other Narrative Procedure Note Kilo Johnson MD - 08/27/2024 8:30 AM CST [facility] GI ENDOSCOPY Patient Name: Shila Carrillo Procedure Date: 08/27/2024 8:30 AM Date of : 1960 Admit Type: Outpatient Age: 64 Gender: Female Attending MD: Kilo Johnson M.D. Room: [facility] ENDOSCOPY ROOM 06 Note Status: [...] On: 08/27/2024 8:30 AM Recognized by the [employer] Society for Gastrointestinal Endoscopy for promoting quality [...] [place] Care Teams Education Technician Relationship Specialty Start Date End Date Estefany Lei MD [address] [place] [phone] PCP - General Internal Medicine 04/07/22
--- OUTSIDE RECORDS SUMMARY | 2025-03-07 19:02 | XMS_ITS | Clinical Summary ---
Author Organization [facility] Address [address] [place] [address] Care Team Providers Care Remote Coders Name Role Phone Unavailable Primary Care Provider Unavailabl e Source Comments [facility],non-owned Affiliates and Associated Physician Practices is amultiple site organization consisting of ambulatory clinics and hospital sitesin [place], [place], [place] and [place]. This disclosure is being madepursuant to the Care Everywhere program and may not contain all information available regarding this patient. Last updated 18.[facility] Allergies Active Allergy Reactions Criticality Noted Date [...] 03/19/1979 DTAP/TDAP/TD VACCINES (1 - Tdap) 1980 PAP SMEAR 1982 PNEUMOCOCCAL VACCINE 50+ (1 of 1 - [...] patient's age to complete this topic Insurance [facility]
--- NOTE | 2025-03-07 19:14 | ECG_ITS ---
Test Date: 2025-03-07 19:26:21 Measurements Intervals [place] Rate: 84 P: 64 CO: 147 QRS: 35 QRSD: 76 T: 45 QT: 357 QTc: 423 Interpretive Statements SINUS RHYTHM POSSIBLE LEFT ATRIAL ENLARGEMENT MINIMAL Q WAVES- INFERIOR LEADS BORDERLINE ECG No previous ECG available for comparison Electronically Signed On 03-07-2025 20:22:11 CDT by Shravan Simms D.O.
[2025-03-07 19:19] VITALS: BP 158/80; PULSE 92; RESP 22; TEMP 36.8; O2SAT 99
[2025-03-07] MEDS: ASPIRIN 81 MG CHEWABLE TABLET 324 MG PO (20:34)
--- OUTSIDE RECORDS SUMMARY | 2025-03-07 20:46 | XMS_ITS | Referral Summary ---
Author Organization [facility] [address] at the [facility] Office Building Address [address] [place] [address] Care Team Providers Care Salesperson Floor Coverings Name Role Phone Estefany Lei MD Primary [...] on file Legal Sex Female 12:44 AM IBM BPM ARCHITECT Gender Identity Not on file Sexual Orientation Not on file Last Filed Vital Signs Vital Sign Reading Time Taken Comments Blood Pressure 125/86 08/27/2024 9:18 AM IBM BPM ARCHITECT Pulse 68 08/27/2024 9:18 AM IBM BPM ARCHITECT Temperature 36.4 C (97.6 F) 08/27/2024 8:55 AM IBM BPM ARCHITECT Respiratory Rate 14 08/27/2024 9:18 AM IBM BPM ARCHITECT Oxygen Saturation 99% 08/27/2024 9:18 AM IBM BPM ARCHITECT Inhaled Oxygen Concentration - - Weight 52.2 kg (115 lb) 08/27/2024 7:29 AM IBM BPM ARCHITECT Height 157.5 cm (5' 2) 04/17/2024 8:24 AM CDT Body Mass Index 21.03 04/17/2024 8:24 AM CDT Plan of Treatment Not on file Procedures Procedure Name Priority Date/Time Associated Diagnosis Comments COLONOSCOPY 08/27/2024 8:30 AM IBM BPM ARCHITECT SCREENING MAMMOGRAM Schedule Routine, Read Routine (OP Routine) 09/02/2022 HM PAP SMEAR WITH HPV Routine 01/11/2020 from Last 3 Months or Most Recently Relevant to Health Maintenance Results * Colonoscopy (08/27/2024 8:30 AM IBM BPM ARCHITECT) Anatomical Region Laterality Modality Other Narrative Procedure Note Kilo Johnson MD - 08/27/2024 8:30 AM CST [facility] GI ENDOSCOPY Patient Name: Shila Martinez Procedure Date: 08/27/2024 8:30 AM Date of : 1960 Admit Type: Outpatient Age: 64 Gender: Female Attending MD: Kilo Johnson M.D. Room: [facility] ENDOSCOPY ROOM 06 Note Status: Finalized Procedure: [...] On: 08/27/2024 8:30 AM Recognized by the [place] Society for Gastrointestinal Endoscopy for promoting quality [...] Tone Payer ID:[id number] (NAIC) Type:HEALTHCARE/EXCHANGE Address: [address] [place] [phone] Care Teams Salesperson Floor Coverings Relationship Specialty Start Date End Date Estefany Lei MD [address] [place] [phone] PCP - General Internal Medicine 04/07/22
--- OUTSIDE RECORDS SUMMARY | 2025-03-07 20:46 | XMS_ITS | Clinical Summary ---
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 Gender Identity Not on file Sexual Orientation Not on file Obstetrics History Last Filed Vital Signs Vital Sign Reading Time Taken Comments Blood Pressure 125/86 08/27/2024 9:18 AM MEAT GRINDER Pulse 68 08/27/2024 9:18 AM MEAT GRINDER Temperature 36.4 C (97.6 F) 08/27/2024 8:55 AM MEAT GRINDER Respiratory Rate 14 08/27/2024 9:18 AM MEAT GRINDER Oxygen Saturation 99% 08/27/2024 9:18 AM MEAT GRINDER Inhaled Oxygen Concentration - - Weight 52.2 kg (115 lb) 08/27/2024 7:29 AM MEAT GRINDER Height 157.5 cm (5' 2) 04/17/2024 8:24 [...] Associated Diagnosis Comments COLONOSCOPY 08/27/2024 8:30 AM MEAT GRINDER SCREENING MAMMOGRAM Schedule Routine, Read Routine (OP Routine) 09/02/2022 HM PAP SMEAR WITH HPV Routine 01/11/2020 from Last 3 Months or Most Recently Relevant to Health Maintenance Results * Colonoscopy (08/27/2024 8:30 AM MEAT GRINDER) Anatomical Region Laterality Modality Other Narrative Procedure Note Kilo Johnson MD - 08/27/2024 8:30 AM CST [facility] GI ENDOSCOPY Patient Name: Shila Carrillo Procedure Date: 08/27/2024 8:30 AM Date of : 1960 Admit Type: Outpatient Age: 64 Gender: Female Attending MD: Kilo Johnson M.D. Room: [facility] ENDOSCOPY ROOM 06 Note Status: [...] On: 08/27/2024 8:30 AM Recognized by the [employer] Society for Gastrointestinal Endoscopy for promoting quality [...] [place] Care Teams Liquid Sugar Fortifier Relationship Specialty Start Date End Date Estefany Lei MD [address] [place] [phone] PCP - General Internal Medicine 04/07/22
--- OUTSIDE RECORDS SUMMARY | 2025-03-07 20:46 | XMS_ITS | Clinical Summary ---
Author Organization [facility] [employer] Address [address] [place] [address] Care Team Providers Care Claims Investigator Name Role Phone Unavailable Primary Care Provider Unavailabl e Source Comments [facility] [employer],non-owned Affiliates and Associated Physician Practices is amultiple site organization consisting of ambulatory clinics and hospital sitesin [place], [place], [place] and [place]. This disclosure is being madepursuant to the Care Everywhere program and may not contain all information available regarding this patient. Last updated 18.[facility] Allergies Active Allergy Reactions Criticality Noted Date [...] patient's age to complete this topic Insurance [facility]
[2025-03-07 21:00] LABS: Basophils Absolute Auto 0.1 K/mm3 (0.0-0.1); Eosinophils Absolute Auto 0.2 K/mm3 (0-0.3); Hematocrit 42.9 % (37.0-47.0); Hemoglobin 14.4 g/dL (12.0-15.0); Immature Granulocyte Absolute 0.02 K/mm3 (0.00-0.031); Immature Granulocyte Percent A 0.3 % (0-0.5); Lymphocytes Absolute Auto 1.86 K/mm3 (0.9-3.2); Lymphocytes Percent Auto 29.8 % (18.3-44.2); Mean Corpuscular HGB Conc 33.6 g/dl (32-36); Mean Corpuscular Hemoglobin 30.4 pg (26-34); Mean Corpuscular Volume 90.5 fl (80-100); Mean Platelet Volume 9.6 fl (7.4-10.4); Monocytes Absolute Auto 1.2 K/mm3 (0.1-0.6); Monocytes Percent Auto 18.6 % (2.6-8.5); Neutrophils Percent Auto 47.3 % (45.5-73.1); Platelet Count Result 268 k/mm3 (150-375); Red Blood Count 4.74 M/mm3 (4.2-5.4); Red Cell Distribution Width 11.9 % (11.5-14.5); White Blood Count 6.2 K/mm3 (4.5-10.0)
[2025-03-07 21:11] LABS: Prothrombin Time 13.3 Seconds (11.1-14.7)
[2025-03-07 21:13] LABS: Alanine Aminotransferase 18 U/L (6-35); Albumin Level 4.3 g/dL (3.5-5.1); Alkaline Phosphatase 33 U/L (38-126); Anion Gap 7 mmol/L (4-12); Aspartate Amino Transferase 31 U/L (14-36); Bilirubin,Total 0.3 mg/dL (0.2-1.3); Blood Urea Nitrogen 15 mg/dL (7-17); Calcium 9.9 mg/dL (8.4-10.2); Carbon Dioxide 26 mmol/L (22-30); Chloride 106 mmol/L (98-107); Estimated CRCL calculation 60 ml/min; Estimated Glomerular Filt Rate > 60; Glucose 102 mg/dL (65-110); Lipase 142 U/L (23-300); Potassium 3.8 mmol/L (3.4-5.0); Sodium 139 mmol/L (137-145); Total Protein 7.2 g/dL (6.3-8.2)
--- NOTE | 2025-03-07 21:16 | ED_ITS ---
HPI - General Adult General Chief complaint: Unspecified Stated complaint: left arm pain/heavy x 45 minutes Time Seen by Provider: 03/07/25 20:12 History of Present Illness HPI narrative: This is a 64-year-old female presenting with a period of left arm heaviness. At 6:30 p.m. the patient was starting have dinner. She started feel a heaviness in her left arm radiating down to her fingertips. This lasted for approximately 30 minutes before resolving on its own. She did not have any associated chest pain, shortness of breath diaphoresis or exertional component. No slurred speech facial droop or you weakness. No lower extremity edema. No history of DVTs or blood clots. Patient is concerned she might be having a heart attack as she knows movement have atypical symptoms. She is currently pain-free. Related Data Home Medications ?Medication ?Instructions ?Recorded ?Confirmed ?Last Taken ?Type cetirizine 10 mg tablet (Zyrtec) 10 mg PO DAILY 01/11/20 08/30/23 Unknown History magnesium oxide 500 mg PO DAILY 01/11/20 08/30/23 Unknown History spironolactone 100 mg tablet 100 mg PO DAILY 01/11/20 08/30/23 Unknown History (Aldactone) Allergies Allergy/AdvReac Type Severity Reaction Status Date / Time Penicillins Allergy Unknown rash(early Verified 03/07/25 19:22 childhood) terbinafine Allergy Unknown itching, Verified 03/07/25 19:22 abdominal pain PMFSH Past Medical History Medical History (Updated 03/07/25 @ 21:43 by Guy Davila MD) Clitorectomy with excision of labia minora Surgical History Surgical History H/O section History of colonoscopy (~08/2014) H/O tubal ligation Family History Family History Mother Hypertension Family history of osteoarthritis Sibling Hypertension Family history of rheumatoid arthritis Family history of osteoarthritis Father Family history of coronary artery disease Other Family history of arthritis Social History Social History Smoking status: Never smoker Alcohol intake: current Exam 2 Narrative: APPEARANCE: No apparent distress. Head: atraumatic. EYES: EOMI, NOSE: Atraumatic NECK: Trachea midline RESPIRATORY: No increased rate of breathing, clear to auscultation CARDIOVASCULAR: RRR, no peripheral edema ABDOMINAL: Non-distended nontender MUSCULOSKELETAl: Focal exam of the left extremity showed no overlying skin changes. No areas of tenderness or soreness. Plus two pulses than Radian ulnar distribution. Chronometer Repairer strength is intact. Soft compartments. NEURO: Alert. Moving 4/4 extremities SKIN:: Warm, dry. Normal color PSYCHIATRIC: Normal affect Course Vital Signs Vital signs: Vital Signs Temperature 36.8 C 03/07/25 19:19 Pulse Rate 92 03/07/25 19:19 Respiratory Rate 22 H 03/07/25 19:19 Blood Pressure 158/80 H 03/07/25 19:19 Pulse Oximetry 99 03/07/25 19:19 Oxygen Delivery Room Air 03/07/25 19:19 Temperature 36.8 C 03/07/25 19:19 Pulse Rate 75 03/07/25 23:06 Respiratory Rate 16 03/07/25 23:06 Blood Pressure 102/68 03/07/25 23:06 Pulse Oximetry 99 03/07/25 23:06 Oxygen Delivery Room Air 03/07/25 19:19 Medical Decision Making MDM Narrative Medical decision making narrative: -Course: 64-year-old female presenting with an episode of left arm heaviness. She is currently symptom free. Physical exam is unremarkable. Chest pain workup obtained. Initial troponin negative. Patient signed out to the oncoming pending 3 hour troponin and repeat EKG. If that is home the patient can be discharged to follow-up with her modeling teacher Dr. Bernardo. Independent EKG interpretation: Rhythm [sinus], Rate [84], [place] -[normal], [place] -[normal], QRS [narrow], QTC [normal], T waves -[negative for concerning inversions], ST Segments - [Negative for concerning elevations] Final interpretations: [Normal Sinus Rhythm] -DDX includes but is not limited to: ACS, muscle strain, cervical radiculopathy Vital Signs Vital Signs: Vital Signs Temperature 36.8 C 03/07/25 19:19 Pulse Rate 92 03/07/25 19:19 Respiratory Rate 22 H 03/07/25 19:19 Blood Pressure 158/80 H 03/07/25 19:19 Pulse Oximetry 99 03/07/25 19:19 Oxygen Delivery Room Air 03/07/25 19:19 Temperature 36.8 C 03/07/25 19:19 Pulse Rate 75 03/07/25 23:06 Respiratory Rate 16 03/07/25 23:06 Blood Pressure 102/68 03/07/25 23:06 Pulse Oximetry 99 03/07/25 23:06 Oxygen Delivery Room Air 03/07/25 19:19 Lab Data 03/07/25 20:46 03/07/25 20:46 Labs: Lab Results 03/07/25 03/07/25 Range/Units 20:46 23:35 WBC 6.2 (4.5-10.0) K/mm3 RBC 4.74 (4.2-5.4) M/mm3 Hgb 14.4 (12.0-15.0) g/dL Hct 42.9 (37.0-47.0) % MCV 90.5 (80-100) fl MCH 30.4 (26-34) pg MCHC 33.6 (32-36) g/dl RDW 11.9 (11.5-14.5) % Plt Count 268 (150-375) k/mm3 MPV 9.6 (7.4-10.4) fl Immature Gran % (Auto) 0.3 (0-0.5) % Neut % (Auto) 47.3 (45.5-73.1) % Lymph % (Auto) 29.8 (18.3-44.2) % [place] % (Auto) 18.6 H (2.6-8.5) % Eos % (Auto) 3.0 (0-4.4) % Baso % (Auto) 1.0 (0.2-1.2) % Lymph # (Auto) 1.86 (0.9-3.2) K/mm3 [place] # (Auto) 1.2 H (0.1-0.6) K/mm3 Eos # (Auto) 0.2 (0-0.3) K/mm3 Baso # (Auto) 0.1 (0.0-0.1) K/mm3 Abs Immat Gran (auto) 0.02 (0.00-0.031) K/mm3 Absolute Neuts (auto) 3.0 (1.3-6.7) K/mm3 Absolute Nucleated RBC 0.000 (0.0-0.012) K/mm3 Nucleated RBC % 0.0 (0.0-0.2) % PT 13.3 (11.1-14.7) Seconds INR 1.0 APTT 26.0 (22.3-36.8) Seconds Sodium 139 (137-145) mmol/L Potassium 3.8 (3.4-5.0) mmol/L Chloride 106 (98-107) mmol/L Carbon Dioxide 26 (22-30) mmol/L Anion Gap 7 (4-12) mmol/L BUN 15 (7-17) mg/dL Creatinine 0.68 L (0.7-1.0) mg/dL Estim Creat Clear Calc 60 ml/min Estimated GFR > 60 (59 - ) Glucose 102 (65-110) mg/dL Calcium 9.9 (8.4-10.2) mg/dL Total Bilirubin 0.3 (0.2-1.3) mg/dL AST 31 (14-36) U/L ALT 18 (6-35) U/L Alkaline Phosphatase 33 L (38-126) U/L Troponin I < 0.012 < 0.012 (0.000-0.034) ng/mL Total Protein 7.2 (6.3-8.2) g/dL Albumin 4.3 (3.5-5.1) g/dL Lipase 142 (23-300) U/L Discharge Plan Discharge Clinical Impression: Arm pain, left Patient Disposition: Home Condition: Stable Instructions: Antibiotic Form, Chest Pain (ED) Additional Instructions: You were seen emergency department for a brief period of arm heaviness. Your workup here did not reveal any signs of a heart attack. Please follow-up with your modeling teacher and primary care physician for further management. If you we develop any new or worsening symptoms please return to ED for re-evaluation. Patient Language: Monegasque Prescriptions: No Action spironolactone [Aldactone] 100 mg tablet 100 mg PO DAILY cetirizine [Zyrtec] 10 mg tablet 10 mg PO DAILY magnesium oxide 500 mg tablet 500 mg PO DAILY Follow-up/Referrals: Quique,Estefany Lockett MD [Primary Care Provider] - Time of Disposition: 00:16
[2025-03-07 21:29] LABS: Troponin I < 0.012 ng/mL (0.000-0.034)
[2025-03-07 23:06] VITALS: BP 102/68; PULSE 75; RESP 16; O2SAT 99
[2025-03-07 23:15] VITALS: BP 101/66; PULSE 80; RESP 16; O2SAT 96
[2025-03-07 23:30] VITALS: BP 104/73; PULSE 82; RESP 14; O2SAT 98
[2025-03-08 00:02] LABS: Troponin I < 0.012 ng/mL (0.000-0.034)
[2025-03-08 00:15] VITALS: BP 101/71; PULSE 73; RESP 16; O2SAT 98
== END 2025-03-08 00:25 | disposition home or self-care (01) ==
PROVIDERS: Emergency Provider Emergency Medicine; PCP Internal Medicine
DX: M79.602 Pain in left arm (principal); R94.31 Abnormal electrocardiogram [ECG] [EKG]
CPT/HCPCS: 36415; 71045; 80053; 83690; 84484; 85025; 85610; 85730; 93005; 99284; A9270

== ENCOUNTER 2025-05-30 07:46 | Outpatient (CLI) | payer BC, SELFPAY ==
--- NOTE | ~2025-05-30 | MR_ITS ---
EXAMINATION: MR knee LT wo con DATE: 05/30/2025 08:13 INDICATION: Left knee pain. TECHNIQUE: Magnetic resonance imaging (MRI) of the left knee was performed without intravenous contrast. Sequences included axial PD-weighted FS FSE, coronal PD-weighted FSE and PD-weighted FS FSE, sagittal PD-weighted FSE, and sagittal T2-weighted FS FSE. COMPARISON: Left knee radiographs 05/09/2025 FINDINGS: Medial compartment: Medial meniscus is normal. Medial compartment cartilage is normal. 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 There is an undersurface horizontal tear of body of lateral meniscus. Lateral compartment cartilage is normal. Patellofemoral compartment: There is shallow partial-thickness cartilage loss of patella and trochlea. Ligaments and tendons: The anterior and posterior cruciate ligaments are normal. Medial collateral ligament is normal. There are changes of prior sprain of lateral collateral ligament characterized by thickening and increased signal intensity proximally. There is mild patellar tendinopathy. Fluid: There is a small knee joint effusion. IMPRESSION: 1. Mild chondrosis of patellofemoral compartment. 2. Tear of lateral meniscus. 3. Small knee joint effusion. Reviewed, dictated and finalized at location E.
== END 2025-05-30 07:47 | disposition home or self-care (01) ==
PROVIDERS: PCP Internal Medicine; Visit Provider Orthopaedic Surgery
DX: M25.462 Effusion, left knee (principal); S83.282D Other tear of lateral meniscus, current injury, left knee, subsequent encounter; X58.XXXD Exposure to other specified factors, subsequent encounter
CPT/HCPCS: 73721